=== PATIENT | male | born 1955 | race Caucasian/White ===

== ENCOUNTER 2019-11-16 17:22 | Outpatient (CLI) | payer MEDICARE, SELFPAY ==
--- NOTE | ~2019-11-16 | CT_ITS ---
EXAMINATION: CT abdomen pelvis wo con EXAM DATE: 11/16/2019 17:48 INDICATION: Right flank pain. TECHNIQUE: Spiral CT of the abdomen and pelvis was performed without contrast. Axial, coronal and sag ittal images were reviewed. The dose-length product (DLP) for this examination was 702.41 mGy-cm. T he exposure was tailored according to patient size (auto mA exposure control), and iterative reconstr uction (ASIR) was used as additional dose reduction technique. There is no prior study for compariso n. FINDINGS: There is a 3 mm right inferior calyceal stone, 2 mm left mid calyceal stone. No ureteral st ones or hydronephrosis. There is moderate prostatomegaly. The bladder is unremarkable. The liver, s pleen, adrenal glands and pancreas are unremarkable. The gallbladder is contracted but otherwise unr emarkable. There is no retroperitoneal or pelvic lymphadenopathy. There is mild scattered arterios clerotic disease. Small umbilical fat-containing hernia and small to moderate right inguinal fat-cont aining hernia. Small left inguinal fat-containing hernia. The appendix is not positively visualized. There is no pericecal inflammatory change to suggest appe ndicitis. The stomach and small bowel are unremarkable. There is expected amount of colonic stool. No free intraperitoneal gas. The heart is normal in size. There are no pericardial or pleural e ffusions. Small basilar postinfectious residua. There are no osteoblastic or osteolytic lesions radha ntified. IMPRESSION: 1. Small bilateral nephrolithiasis. No hydronephrosis or acute intra-abdominal findings. 2. Fat-containing hernias. 3. Moderate prostatomegaly. Reviewed, dictated and finalized at location A.
--- NOTE | ~2019-11-16 | XR_ITS ---
XR abdomen/kub 1V DATE: 11/16/2019 17:41 INDICATION: Right flank pain TECHNIQUE: AP projection, 2 views COMPARISON: 11/16/2019 CT abdomen pelvis FINDINGS: The psoas shadows are intact. No visceromegaly is evident. The bowel gas pattern is unremar kable, without evidence of obstruction. IMPRESSION: Nonspecific abdomen Reviewed, dictated and finalized at Location A. Reviewed, dictated and finalized at location B. IMPRESSION: Nonspecific abdomen
== END 2019-11-16 17:23 | disposition home or self-care (01) ==
PROVIDERS: PCP Family Medicine Adolescent Medicine; Visit Provider Urology
DX: K44.9 Diaphragmatic hernia without obstruction or gangrene (principal); N40.0 Benign prostatic hyperplasia without lower urinary tract symptoms; N20.0 Calculus of kidney
CPT/HCPCS: 74018; 74176

== ENCOUNTER 2020-08-06 01:53 | Outpatient (CLI) | payer MEDICARE, SELFPAY ==
[2020-08-06 18:32] LABS: SARS-CoV-2 RNA PCR Negative
== END 2020-08-06 01:54 | disposition home or self-care (01) ==
LOC: ANHCOVIDDT 01:53
PROVIDERS: PCP Family Medicine Adolescent Medicine; Visit Provider Internal Medicine Gastroenterology
DX: Z01.812 Encounter for preprocedural laboratory examination (principal); Z20.828 Contact with and (suspected) exposure to other viral communicable diseases
CPT/HCPCS: 87635; C9803; U0003

== ENCOUNTER 2020-08-10 02:15 | Day surgery (SDC) | payer MEDICARE, SELFPAY ==
[2020-08-01 11:44] VITALS: BMI 32.2
[2020-08-10 09:18] VITALS: BP 126/73; PULSE 66; RESP 18; TEMP 36.8; O2SAT 95; BMI 31.1
--- NOTE | 2020-08-10 09:18 | WPDGICN ---
Assessment and Plan Assessment and plan (1) Diarrhea: Code(s): R19.7 - Diarrhea, unspecified Status: Acute Assessment and Plan: Patient has ongoing diarrhea the etiology unclear. Cannot exclude infectious etiology. For this reason stool cultures have been obtained in initially are negative period is also possible diarrhea is related to antibiotic usage. It is possible the metformin use to treat his diabetes may contribute to his diarrhea. Diabetes itself may contribute to diarrhea. In view of negative cultures. Plan is for metformin to be held. Fiber supplements will be implemented. Imodium AD will be given for relief of symptoms. A colonoscopy will be performed to evaluate for organic disease. Further recommendations will Be given subsequently. (2) Diabetes mellitus: Code(s): E11.9 - Type 2 diabetes mellitus without complications Status: Acute GI Consult Note Consult date/time: 08/10/20 09:18 HPI: Yusuf Antunez is a 65 year old male Seen in evaluation at the request of Dr. Jacky Jones. Patient in complains of ongoing diarrhea. Patient states symptoms started June 06. Patient had previously been on antibiotics after neck surgery in November. Recent stool for C difficile toxin is negative. He was treated with antibiotics in May because of sinusitis. Patient describes 8-10 watery stools a day. He denies any bleeding. He denies any fever. Denies abdominal pain. Past medical history is significant for diabetes mellitus. Patient has a history of radiation therapy in the past. Had a brief interval of an ileus subsequent to that years ago. Family history is noncontributory. PMFSH Social History Social History Smoking status: Never smoker Alcohol intake: never Substance use type: does not use Living arrangements: with family Gender identity (if verbalized by the patient): Male Spiritual care concerns: No Meds Home Medications and Allergies Home Medications Medication Instructions Recorded Confirmed Type amoxicillin-pot clavulanate 1 tablet PO BID 08/01/20 08/01/20 History duloxetine 30 mg PO DAILY 08/01/20 08/01/20 History finasteride 5 mg PO DAILY 08/01/20 08/01/20 History gabapentin 300 mg PO QID 08/01/20 08/10/20 History metformin 500 mg PO BID 08/01/20 08/01/20 History Allergies Allergy/AdvReac Type Severity Reaction Status Date / Time Sulfa (Sulfonamide Allergy Itching Verified 08/10/20 09:15 Antibiotics) Exam Narrative: Exam Narrative: Physical exam reveals vital signs are stable. HEENT exam unremarkable. Lungs are clear to auscultation and percussion. Heart is without murmur or extra sounds. Abdominal exam bowel sounds are present soft nontender with no organomegaly. Digital external rectal exam normal.
[2020-08-10] MEDS: LACTATED RINGERS 1,000 ML 150 ML IV CONT (09:34)
--- NOTE | 2020-08-10 09:37 | WPDANESEPPF ---
Anes - Initial Pre Proc Eval Procedure: Operation Date: 08/10/20 10:30 Proposed Procedures p Colonoscopy - Isaías Baxter MD Date/Time: 08/10/20 09:37 Surgeon: Isaías Baxter MD Pre Op Diagnosis: DIARRHEA Patient Data Age: 65 Gender: M Height: 6 ft 4 in Weight: 115.9 kg Last Vital Signs Temp 98.3 F 08/10/20 09:18 Pulse 66 08/10/20 09:18 Resp 18 08/10/20 09:18 BP 126/73 08/10/20 09:18 Pulse Ox 95 08/10/20 09:18 Allergies Allergy/AdvReac Type Severity Reaction Status Date / Time Sulfa (Sulfonamide Allergy Itching Verified 08/10/20 09:15 Antibiotics) Home Medications Medication Instructions Recorded Confirmed Type amoxicillin-pot clavulanate 1 tablet PO BID 08/01/20 08/01/20 History duloxetine 30 mg PO DAILY 08/01/20 08/01/20 History finasteride 5 mg PO DAILY 08/01/20 08/01/20 History gabapentin 300 mg PO QID 08/01/20 08/10/20 History metformin 500 mg PO BID 08/01/20 08/01/20 History Patient hx anesthesia problems: none Family hx anesthesia problems: none [facility] Past Medical History Medical History (Updated 08/10/20 @ 09:36 by Jeffrey Burris MD) Diabetes mellitus ISMAEL (obstructive sleep apnea) Social History Social History Smoking status: Never smoker Alcohol intake: never Substance use type: does not use Living arrangements: with family Gender identity (if verbalized by the patient): Male Spiritual care concerns: No Anes - Eval Final PreProcedure Day of Procedure 08/10/20 09:37 Patient weight: overweight Heart: regular rate and rhythm Lungs: clear to auscultation Airway: Mallampati scale class II Neurological: alert and oriented Last oral intake: >/= 8 hours ASA classification: III Emergent: no Anesthetic plan: proceed Anesthesia type and monitoring: general GIVS and standard monitoring Informed Consent: The patient's anesthetic plan and its attendant risks and benefits were discussed with the patient/family/POA. Questions were solicited and answers provided to the satisfaction of the patient/family/POA.
[2020-08-10 09:38] LABS: Glucose Point of Care 124 (65-105)
[2020-08-10 10:10] VITALS: BP 108/58; PULSE 60; RESP 25; O2SAT 98
[2020-08-10 10:20] VITALS: BP 97/59; PULSE 64; RESP 24; O2SAT 97
[2020-08-10 10:30] VITALS: BP 104/69; PULSE 62; RESP 26; O2SAT 99
== END 2020-08-10 10:46 | disposition home or self-care (01) ==
PROVIDERS: PCP Family Medicine Adolescent Medicine; Visit Provider Internal Medicine Gastroenterology
PROC: 0DJD8ZZ Inspection of Lower Intestinal Tract, Via Natural or Artificial Opening Endoscopic (ICD-10-PCS; CPT 45378; principal; 2020-08-10 10:30)
DX: R19.7 Diarrhea, unspecified (principal); D12.2 Benign neoplasm of ascending colon; D12.3 Benign neoplasm of transverse colon; K63.5 Polyp of colon; K64.8 Other hemorrhoids; E11.9 Type 2 diabetes mellitus without complications; G47.33 Obstructive sleep apnea (adult) (pediatric)
CPT/HCPCS: 45385; 45380; 88305; J2704; J7120

== ENCOUNTER → 2022-05-25 05:20 | Outpatient (CLI) | payer MEDICARE, SELFPAY ==
[2022-05-25 11:43] LABS: SARS-CoV-2 RNA PCR Positive
== END ==
PROVIDERS: PCP Family Medicine Adolescent Medicine; Visit Provider Family Medicine Adolescent Medicine
DX: U07.1 COVID-19 (principal)
CPT/HCPCS: C9803; U0003; U0005

== ENCOUNTER 2022-11-01 12:30 | Outpatient (CLI) | payer MEDICARE, SELFPAY ==
--- NOTE | ~2022-11-01 | XR_ITS ---
EXAMINATION: XR hand BI arthritis min 3V DATE: 11/01/2022 13:34 INDICATION: Unspecified osteoarthritis, unspecified site. TECHNIQUE: 4 views of right hand and 4 views of left hand on a total of 7 radiographs were obtained. COMPARISON: None. FINDINGS: RIGHT HAND: Bone alignment is normal. No fracture. There is mild osteoarthritis of triscaphe joint an d moderate osteoarthritis of first carpometacarpal joint. There is mild osteoarthritis of most of the metacarpophalangeal joints and interphalangeal joints. There is an old healed avulsion fracture defo rmity of palmar base of fourth middle phalanx. LEFT HAND: Bone alignment is normal. No acute fracture. There is a 4 mm fragment of heterotopic ossif ication dorsal to the carpus on the lateral view. There is mild osteoarthritis of triscaphe joint and moderate osteoarthritis of first carpal metacarpal joint. There is mild osteoarthritis of most of th e metacarpophalangeal joints and interphalangeal joints. IMPRESSION: 1. Polyarticular osteoarthritis. Reviewed, dictated and finalized at location A. RIAL EMBALMER
--- NOTE | ~2022-11-01 | XR_ITS ---
Left foot Technique: AP and lateral standing views were obtained. Clinical History: Osteoarthritis Findings: No acute fracture or dislocation is seen. Osseous alignment is anatomic. Minimal degenerati ve spurring of the talonavicular and midfoot articulations. Small plantar calcaneal spur noted. Soft tissues are unremarkable. Impression: Minimal degenerative change, as above. Reviewed, dictated and finalized at location . ORMANCE TEST CONSULTANT Impression: Minimal degenerative change, as above.
--- NOTE | ~2022-11-01 | XR_ITS ---
Right foot Technique: AP and lateral standing views were obtained. Clinical History: Osteoarthritis Findings: No acute fracture or dislocation is seen. Osseous alignment is anatomic. Plantar calcaneal spur present. There is mild degenerative change of the talonavicular articulation. Mild degenerative spurring noted at the anterior margin of the distal tibial plafond. Soft tissues are unremarkable. Impression: Mild degenerative changes, as above. Reviewed, dictated and finalized at location M. OR BI DEVELOPER Impression: Mild degenerative changes, as above.
[2022-11-01 13:29] LABS: Basophils Percent Auto 0.4 % (0.2-1.2); Eosinophils Absolute Auto 0.2 K/mm3 (0-0.3); Eosinophils Percent Auto 2.3 % (0-4.4); Hematocrit 45.7 % (42.0-52.0); Immature Granulocyte Absolute 0.03 K/mm3 (0.00-0.031); Immature Granulocyte Percent A 0.4 % (0-0.5); Lymphocytes Absolute Auto 1.48 K/mm3 (0.9-3.2); Lymphocytes Percent Auto 18.6 % (18.3-44.2); Mean Corpuscular Hemoglobin 31.1 pg (26-34); Mean Corpuscular Volume 88.7 fl (80-100); Mean Platelet Volume 8.7 fl (7.4-10.4); Monocytes Absolute Auto 0.8 K/mm3 (0.1-0.6); Monocytes Percent Auto 9.4 % (2.6-8.5); Neutrophils Absolute Auto 5.5 K/mm3 (1.3-6.7); Neutrophils Percent Auto 68.9 % (45.5-73.1); Platelet Count Result 189 k/mm3 (150-375); Red Blood Count 5.15 M/mm3 (4.6-6.20); Red Cell Distribution Width 13.6 % (11.5-14.5)
[2022-11-01 13:47] LABS: Alanine Aminotransferase 31 U/L (6-50); Albumin Level 4.3 g/dL (3.5-5.1); Alkaline Phosphatase 59 U/L (38-126); Anion Gap 8 mmol/L (8-16); Aspartate Amino Transferase 25 U/L (17-59); Bilirubin,Total 0.8 mg/dL (0.2-1.3); Blood Urea Nitrogen 13 mg/dL (9-20); CRP 0.8 mg/dL (<1.0); Calcium 8.7 mg/dL (8.4-10.2); Carbon Dioxide 28 mmol/L (22-30); Chloride 100 mmol/L (98-107); Creatine Kinase 65 U/L (55-170); Estimated Glomerular Filt Rate > 60; Glucose 350 mg/dL (65-110); Lactate Dehydrogenase 155 U/L (120-246); Potassium 4.1 mmol/L (3.4-5.0); Sodium 136 mmol/L (137-145)
[2022-11-01 13:51] LABS: Complement C3 102 mg/dL (88-165); Rheumatoid Factor < 8.6 IU/ML (<12)
[2022-11-01 14:22] LABS: Creatinine Urine 64.6 mg/dL; Total Protein Urine Random 12 mg/dL; Ur Ttl Prot Creatinine Ratio 0.19 mg/mg (0-0.20)
[2022-11-01 14:40] LABS: Erythrocyte Sedimentation Rate 1 mm/hr (0-20)
[2022-11-05 23:33] LABS: SM Antibody <1.0; SM/RNP Antibody <1.0; SS-A <1.0; SS-B <1.0
[2022-11-06 11:48] LABS: Aldolase 4.4 U/L (<=8.1); Angiotensin Converting Enzyme 15.4 U/L (9-67)
[2022-11-06 12:47] LABS: Anti Cyclic Citrullinated Pept <16 Units (<20)
== END 2022-11-01 12:31 | disposition home or self-care (01) ==
PROVIDERS: PCP Family Medicine Adolescent Medicine; Visit Provider Internal Medicine
DX: R89.9 Unspecified abnormal finding in specimens from other organs, systems and tissues (principal); M19.042 Primary osteoarthritis, left hand; M19.041 Primary osteoarthritis, right hand
CPT/HCPCS: 36415; 73130; 73620; 80053; 82085; 82164; 82550; 82570; 83615; 84156; 85025; 85652; 86038; 86140; 86160; 86200; 86225; 86235; 86430

== ENCOUNTER 2022-11-14 23:16 | Emergency (ER) | payer MEDICARE, SELFPAY ==
--- NOTE | ~2022-11-14 | XR_ITS ---
Clinical Indication: Chest pressure PA and lateral views of the chest: Comparison: 02/04/2019 Findings: Calcified left basilar granuloma again noted. The lungs are otherwise clear, without eviden ce of focal consolidation or pleural effusion. Cardiomediastinal silhouette is within normal limits. Cervical spine fixation hardware is unchanged. Impression: No acute abnormality. Reviewed, dictated and finalized at [facility]. OSAL COORDINATOR Impression: No acute abnormality.
--- NOTE | ~2022-11-14 | CT_ITS ---
Clinical Indication: Chest pain, abdominal pain, vasculitis CT Scan of the Chest and Abdomen with Contrast: Technique: Contiguous sections were acquired throughout the chest, abdomen, and pelvis after intraven ous administration of 100 cc of Omnipaque 350. Dose reduction technique was used on this scan by uti lizing automated exposure control and iterative reconstruction technique. The dose-length product (DL P) was 1248.73 mGy-cm. COMPARISON: 11/16/2019 Findings: There is no evidence of any significant mediastinal, hilar or axillary lymphadenopathy. The mediastin al soft tissues appear normal. No aortic aneurysm or dissection. No central pulmonary embolus seen. There is no evidence of pleural or pericardial effusion. The lungs are clear, aside from minimal dependent atelectatic changes. Probable diffuse fatty infiltration of liver. The spleen, pancreas, gallbladder, adrenals and kidneys are within normal limits. No evidence of aortic aneurysm. No lymphadenopathy. There is minimal ath erosclerotic change of the abdominal aorta. Visualized bowel loops are unremarkable. No ascites. 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 Impression: Minimal atherosclerotic change of the abdominal aorta, otherwise no significant vascular abnormality seen. Diffuse fatty infiltration of the liver. Reviewed, dictated and finalized at location . ING INSPECTOR Impression: Minimal atherosclerotic change of the abdominal aorta, otherwise no significant vascular abnormality seen. Diffuse fatty infiltration of the liver.
--- NOTE | ~2022-11-14 | CT_ITS ---
CT ANGIOGRAM NECK AND HEAD History: Headache, history of AVM and aneurysm. Technique: Axial noncontrast imaging of the brain was performed. Serial spiral axial images through jose caal head and neck were then obtained during arterial phase IV injection of 100 cc of Omnipaque 350. 3- D postprocessing and MIP images were then reconstructed on the remote workstation. Dose reduction margarito hnique was used on this scan by utilizing automated exposure control and iterative reconstruction margarito hnique. The dose-length product (DLP) was 1853.30 mGy-cm. COMPARISON: 02/02/2019 CTA neck findings: Bilateral vertebral arteries are patent. Bile common carotid, internal carotid, a nd external carotid arteries are patent. The proximal right internal carotid artery demonstrates 0% s tenosis relative to the normal distal artery lumen diameter. The proximal left internal carotid arter y demonstrates 0% stenosis relative to the normal distal artery lumen diameter. No aneurysm seen in jose caal neck. CTA head findings: Distal vertebral arteries, basilar artery, and posterior cerebral arteries are pat ent. Distal internal carotid arteries, middle cerebral arteries, and anterior cerebral arteries are p atent. No stenosis or large vessel occlusion identified. There is a dilated vascular structure along the right side of the anterior falx cerebri, which is visible as a hyperdense structure on noncontras t head CT, and is stable since 02/02/2019. This structure measures approximately 2 cm in AP length, an d up to 5 mm in maximum diameter. Impression: Dilated vascular structure along the right side of the anterior falx cerebri, as detailed above. Prec ise etiology is unclear, but this appears to be stable since 02/02/2019. This could be related to hist ory of AVM, versus an atypical aneurysm of the right anterior cerebral artery. Consider conventional angiogram is indicated. Correlate with any relevant history. Reviewed, dictated and finalized at location M. CAL CODING INSTRUCTOR Impression: Dilated vascular structure along the right side of the anterior falx cerebri, a s detailed above. Precise etiology is unclear, but this appears to be stable si nce 02/02/2019. This could be related to history of AVM, versus an atypical aneu rysm of the right anterior cerebral artery. Consider conventional angiogram is indicated. Correlate with any relevant history.
[2022-11-14 23:16] VITALS: BP 127/70; PULSE 68; RESP 18; TEMP 36.6; O2SAT 96
--- NOTE | 2022-11-14 23:24 | ECG_ITS ---
Measurements Intervals [place] Rate: 70 P: 39 KS: 155 QRS: -51 QRSD: 114 T: 33 QT: 412 QTc: 447 Interpretive Statements SINUS RHYTHM LEFT ANTERIOR FASCICULAR BLOCK ABNORMAL ECG COMPARED TO ECG 02/02/2019 09:01:26 LEFT ANTERIOR FASCICULAR BLOCK NOW PRESENT Electronically Signed On 11-15-2022 6:40:02 SHANK TAPPER by Danny Koroma D.O.
[2022-11-14 23:31] VITALS: PULSE 68; RESP 19; O2SAT 95
[2022-11-14 23:34] LABS: Basophils Percent Auto 0.3 % (0.2-1.2); Eosinophils Absolute Auto 0.2 K/mm3 (0-0.3); Eosinophils Percent Auto 2.4 % (0-4.4); Hemoglobin 15.5 g/dL (14.0-18.0); Immature Granulocyte Absolute 0.02 K/mm3 (0.00-0.031); Immature Granulocyte Percent A 0.3 % (0-0.5); Lymphocytes Absolute Auto 1.77 K/mm3 (0.9-3.2); Lymphocytes Percent Auto 25.3 % (18.3-44.2); Mean Corpuscular HGB Conc 35.2 g/dl (32-36); Mean Corpuscular Hemoglobin 31.5 pg (26-34); Mean Corpuscular Volume 89.4 fl (80-100); Mean Platelet Volume 9.3 fl (7.4-10.4); Monocytes Absolute Auto 0.8 K/mm3 (0.1-0.6); Monocytes Percent Auto 11.3 % (2.6-8.5); Neutrophils Absolute Auto 4.2 K/mm3 (1.3-6.7); Neutrophils Percent Auto 60.4 % (45.5-73.1); Platelet Count Result 192 k/mm3 (150-375); Red Blood Count 4.92 M/mm3 (4.6-6.20); Red Cell Distribution Width 13.3 % (11.5-14.5)
[2022-11-14 23:45] VITALS: O2SAT 95
[2022-11-14 23:46] LABS: INR 1.1; Partial Thromboplastin Time 29.9 SECONDS (22.3-36.8); Prothrombin Time 13.7 Seconds (11.1-14.7)
--- NOTE | 2022-11-14 23:47 | ED.CHESTPAIN ---
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 Patient states that he woke up with some crushing substernal chest pain. He thought this was acid reflux, took 2 Tums without relief of his symptoms, states he called an ambulance when the pain started moving to his upper abdomen. He also notes a bitemporal pulsatile headache. He denies any shortness of breath, nausea or vomiting, diarrhea or constipation, fevers or chills. <MATI Calvin Last Filed: 11/15/22 04:29> Related Data Home Medications: Home Medications Medication Instructions Recorded Confirmed finasteride 5 mg tablet 5 mg PO DAILY 08/01/20 07/03/22 ascorbic acid (vitamin C) 1,000 mg 1 g PO DAILY 09/13/21 07/03/22 tablet cholecalciferol (vitamin D3) 25 25 mcg PO DAILY 09/13/21 07/03/22 mcg (1,000 unit) tablet multivitamin 1 tablet PO DAILY 09/13/21 07/03/22 tramadol 50 mg tablet 50 mg PO Q6H PRN 09/13/21 07/03/22 vitamin B complex (B 1 tablet PO DAILY 09/13/21 07/03/22 Complex-Vitamin B12 tablet) folic acid 1 mg tablet 1 mg PO DAILY 01/25/22 07/03/22 methotrexate sodium 2.5 mg tablet 12.5 mg PO WEEKLY 01/25/22 07/03/22 <MATI Calvin Last Filed: 11/15/22 04:29> Allergies/Adverse Reactions: Allergies Allergy/AdvReac Type Severity Reaction Status Date / Time Sulfa (Sulfonamide Allergy Itching Verified 11/14/22 23:27 Antibiotics) <Shira Howe PA-C - Last Filed: 11/15/22 04:29> Review of Systems Review of Systems: Gen: Denies fevers or chills Eyes: Denies eye pain or visual change ENT: Denies congestion Respiratory: Denies shortness of breath or cough CV: Reports chest pain GI: Denies abdominal pain nausea, emesis or diarrhea denies burning, urgency, frequency or hematuria Musculoskeletal: Denies back pain or muscle pain Neuro: Reports headache. Denies numbness, tingling, weakness or focal weakness Skin: Denies rash Except as documented, all other systems reviewed and negative <Shira Howe PA-C - Last Filed: 11/15/22 04:29> FORMERLY [facility], [facility] Past Medical History Medical History: Medical History Diabetes Inflammatory arthropathy ISMAEL (obstructive sleep apnea) <Shira Howe PA-C - Last Filed: 11/15/22 04:29> Surgical History Surgical History: Surgical History History of total right knee replacement Hx of cervical spine surgery <Shira Howe PA-C - Last Filed: 11/15/22 04:29> Family History Family History: Family History Father Cerebrovascular accident Mother Lung cancer Sibling Lung cancer Other Colon polyp <Shira Howe PA-C - Last Filed: 11/15/22 04:29> Social History Social History: Social History Smoking status: Never smoker Second hand tobacco smoke exposure: No Alcohol intake: never Substance use: never Substance use type: does not use Living arrangements: with family Occupation/Education: retired Gender identity (if verbalized by the patient): Male Sexual Orientation (if Verbalized by the Patient): Straight or Heterosexual Spiritual care concerns: No Agree to blood products: Yes <MATI Calvin Las
[2022-11-14 23:50] LABS: Alanine Aminotransferase 34 U/L (6-50); Alkaline Phosphatase 62 U/L (38-126); Anion Gap 5 mmol/L (8-16); Aspartate Amino Transferase 29 U/L (17-59); Bilirubin,Total 0.7 mg/dL (0.2-1.3); Blood Urea Nitrogen 15 mg/dL (9-20); Calcium 8.9 mg/dL (8.4-10.2); Carbon Dioxide 31 mmol/L (22-30); Chloride 99 mmol/L (98-107); Estimated CRCL calculation 105 ml/min; Estimated Glomerular Filt Rate > 60; Glucose 286 mg/dL (65-110); Lipase 38 U/L (23-300); Sodium 135 mmol/L (137-145)
[2022-11-15] VITALS (15 sets, daily range): BP systolic 109–137; BP diastolic 63–79; PULSE 54–80; RESP 11–22; O2SAT 93–99
[2022-11-15 00:01] LABS: Troponin I < 0.012 ng/mL (0.000-0.034)
[2022-11-15 01:04] LABS: Erythrocyte Sedimentation Rate 1 mm/hr (0-20)
[2022-11-15 03:02] LABS: Troponin I < 0.012 ng/mL (0.000-0.034)
== END 2022-11-15 04:07 | disposition home or self-care (01) ==
PROVIDERS: Emergency Medicine; Emergency Provider Physician Assistant; PCP Family Medicine Adolescent Medicine
DX: R07.9 Chest pain, unspecified (principal); R51.9 Headache, unspecified; K21.9 Gastro-esophageal reflux disease without esophagitis; E11.9 Type 2 diabetes mellitus without complications
CPT/HCPCS: 36415; 70496; 70498; 71046; 71275; 74175; 80053; 83690; 84484; 85025; 85610; 85652; 85730; 93005; 96365; 99284; J0131; Q9967

== ENCOUNTER 2023-12-12 00:04 | Day surgery (SDC) | payer MEDICARE, SELFPAY ==
--- NOTE | 2023-12-11 09:55 | PC.NURSE ---
Report to the Outpatient Waiting Room, entrance under the green pavilion located off [facility], at time _0930 on date __12/12/23 . Planned Procedure Time: ___1130 . Time changes happen often and if your time is changed the preop area will call you the afternoon before. - You and your visitor will be asked to self-screen and do not enter if you have any COVID symptoms. - A mask is optional within the hospital at this time. Patients may have clear liquids (water, carbonated beverages, clear teas, apple juice) until 3 hours prior to surgery( 0830) with a maximum of 20 ounces. - No food from midnight until time of surgery - Infants may have breast milk until 4 hours before surgery, formula 6 hours prior to surgery. - Children will be allowed to drink immediately following surgery. If applicable, please bring a bottle or sippy cup to assist with drinking. Juice, water, soda, and popsicles are readily available. For infants on formula, please bring formula the day of surgery. Pacifiers are allowed. Take the following medications with a SIP of water the morning of surgery: __GABAPENTIN, DO NOT STOP ANY OF YOUR OTHER PRESCRIPTION MEDICATIONS PRIOR TO SURGERY ?EXCEPT THE FOLLOWING Medications to discontinue per physician Date to take last dose Please no make-up, nail burmese, hairspray, perfume, deodorant, or body powder the day of surgery. No jewelry (including any body piercings) or valuables the day of surgery, leave them at home. Please take a shower or bath the night before, or the morning of, surgery with an antibacterial soap. Wear comfortable, loose fitting clothing. Children are encouraged to wear pajamas. - Jewelry must be removed prior to entering the operating room. Rings and piercings that are not removed may be cut off. - The hospital will not accept responsibility for valuables. - Please leave all valuables, including medications, at home the day of surgery. If you are going home after surgery, a licensed lease purchase truck driver must drive you home. - NO public transportation without another adult if you receive anesthesia. - We recommend that an adult stay with you for 24 hours following discharge. - We also recommend that you do not drive, make important decision, drink alcoholic beverages, or take any drugs that were not prescribed by your health care provider for at least 24 hours after your discharge time. Follow any additional instructions given to you from your surgeon. If you or anyone in your household have experienced Covid symptoms in the past week, please notify your surgeon or the nurse liaison at the phone number below for possible testing. Telephone instructions given to ___PT and asked if any additional questions and then verbalized understanding. Patient advised to call surgeon office or pre surgery nurse liaison [phone] if any additional questions.
[2023-12-11 10:00] VITALS: BMI 37.3
[2023-12-12] VITALS (10 sets, daily range): BP systolic 112–147; BP diastolic 62–83; PULSE 51–77; RESP 14–18; TEMP 36.6–37.1; O2SAT 94–100
--- NOTE | 2023-12-12 06:29 | WPDHPUPDATE1 ---
History and Physical Update Update Date/Time: 12/12/23 06:29 History and Physical has been reviewed, including an updated exam of the patient. There are NO changes in the patient's condition. Risks, benefits, and alternatives have been discussed and questions answered. Patient agrees to proceed with procedure.
--- NOTE | 2023-12-12 09:11 | ECG_ITS ---
Measurements Intervals [place] Rate: 50 P: 32 GA: 190 QRS: -37 QRSD: 115 T: 19 QT: 470 QTc: 429 Interpretive Statements SINUS BRADYCARDIA MARKED LEFT AXIS DEVIATION [QRS AXIS < -30] COMPARED TO ECG 11/14/2022 23:25:56 SINUS BRADYCARDIA NOW PRESENT Electronically Signed On 12-12-2023 11:05:44 CDT by Luli Blackman M.D.
[2023-12-12] MEDS: LACTATED RINGERS 1,000 ML 30 ML IV CONT ×2 (10:00→12:50)
[2023-12-12 10:17] LABS: Glucose Point of Care 141 mg/dl (65-105)
--- NOTE | 2023-12-12 10:19 | WPDANESEPPF ---
Anes - Initial Pre Proc Eval Procedure: Operation Date: 12/12/23 11:30 Proposed Procedures p Trans Urethral Resection Bladder Tumor with Gemcitabine Instillation - José Antonio Skinner MD Date/Time: 12/12/23 10:19 Surgeon: José Antonio Skinner MD Pre Op Diagnosis: Bladder Ca Patient Data Age: 68 Gender: M Height: 1.83 m Weight: 124.75 kg Allergies Allergy/AdvReac Type Severity Reaction Status Date / Time Sulfa (Sulfonamide Allergy Itching Verified 12/12/23 10:25 Antibiotics) Home Medications Medication Instructions Recorded Confirmed Type finasteride 5 mg tablet 5 mg PO DAILY 08/01/20 12/12/23 History ascorbic acid (vitamin C) 1,000 mg 1 g PO DAILY 09/13/21 12/12/23 History tablet cholecalciferol (vitamin D3) 25 25 mcg PO DAILY 09/13/21 12/12/23 History mcg (1,000 unit) tablet tramadol 50 mg tablet 50 mg PO Q6H PRN Pain 09/13/21 12/12/23 History folic acid 1 mg tablet 1 mg PO DAILY 01/25/22 12/12/23 History methotrexate sodium 2.5 mg tablet 12.5 mg PO WEEKLY 01/25/22 12/12/23 History oxybutynin chloride 5 mg tablet 5 mg PO QPM 11/30/22 12/12/23 History blood sugar diagnostic (Accu-Chek #100 ea 03/25/23 12/12/23 Rx Esperanza Plus test strips) lancets #100 ea 03/25/23 12/12/23 Rx duloxetine 30 mg capsule,delayed 60 mg PO HS PAIN 10/23/23 12/12/23 History release blood-glucose meter,continuous #1 ea 12/02/23 12/12/23 Rx ([employer]) pen needle, diabetic 32 gauge x #100 ea 12/07/23 12/12/23 Rx /32 (TRUEplus Pen Needle) blood-glucose sensor (Dexcom G7 #3 ea 12/09/23 12/12/23 Rx Sensor device) cyanocobalamin (vitamin B-12) 1,000 mcg PO DAILY 12/11/23 12/12/23 History 1,000 mcg capsule docusate sodium 100 mg capsule 100 mg PO HS 12/11/23 12/12/23 History (Stool Softener) famotidine 20 mg tablet 20 mg PO DAILY 12/11/23 12/12/23 History gabapentin 300 mg capsule 600 mg PO TID 12/11/23 12/12/23 History insulin glargine 100 unit/mL (3 20 unit subcut HS 12/11/23 12/12/23 History mL) subcutaneous pen (Lantus Solostar U-100 Insulin) insulin lispro 100 unit/mL 10 unit subcut TID 12/11/23 12/12/23 History subcutaneous pen (Humalog KwikPen (U-100) Insulin) Laboratory Tests 12/12/23 10:12 POC Capillary Glucose 141 H mg/dl (65-105) Patient hx anesthesia problems: none Family hx anesthesia problems: none Results Review: All pre-operative results and documents have been reviewed as part of the pre-operative evaluation. [facility] Past Medical History Medical History (Updated 11/28/23 @ 16:15 by Jacky Jenkins MD) Inflammatory arthropathy ISMAEL (obstructive sleep apnea) Surgical History Surgical History History of total right knee replacement Hx of cervical spine surgery Family History Family History Father Cerebrovascular accident Mother Lung cancer Sibling Lung cancer Other Colon polyp Social History Social History (Updated 03/14/23 @ 15:00 by King Rothman MA) Smoking status: Never smoker Second hand tobacco smoke exposure: No Alcohol intake: never Substance use: never Substance use type: does not use Lack of Transportation: No Lack of Food: Never True Current Housing: I Have Housing Concerned About Future Housing: No Difficulty Paying Gas/Electric Bills: No Difficulty Paying for Meds: No Currently Unemployed: No Education: High School Diploma/GED Difficulty w/ Childcare or Family Care: No Living arrangements: with family Occupation/Education: retired Gender identity (if verbalized by the patient): Male Sexual Orientation (if Verbalized by the Patient): Straight or Heterosexual Spiritual care concerns: No Agree to blood products: Yes Anes - Eval Final PreProcedure Day of Procedure 12/12/23 10:19 Patient weight: obese Heart: regular rate and rhythm and mu
[2023-12-12] MEDS: MIDAZOLAM HCL (*CRX) 2 MG/2 ML VIAL IV PUSH (11:25)
[2023-12-12] MEDS: ceFAZolin 3 GM/D5W 100 ML 100 ML IVPB (11:29)
--- NOTE | 2023-12-12 12:03 | W.PM.PROC2 ---
Procedure Note - Detailed Date of Procedure 12/12/23 Pre-op Diagnosis Bladder Ca Post-op Diagnosis Same Procedure Performed TURBT (medium, 3 cm) Surgeon José Antonio Skinner MD Anesthesia General Description of Procedure Patient is brought to the op suite where he is prepped draped in routine sterile fashion while in dorsal lithotomy position after the uneventful induction of a general LMA anesthetic. Cystoscopy was undertaken with a 24 F resectoscope sheath. There was no urethral stricture but generous lateral lobe enlargement of the prostate with approximately 3 cm prostatic urethra bladder shows the area papillary neoplastic growth in the left posterior lateral bladder wall below the trigone, just inside the bladder neck. The remainder of the bladder mucosa is perfectly normal without suggestion of additional neoplastic sites. This area was resected in its entirety with and attempt made to include detrusor muscle for pathological evaluation of invasion. This did require resection of the left ureteral orifice but I was able to avoid cautery in that area. The remainder of the base and periphery were cauterized with a loop and rollerball electrode. Resectoscope was removed and a 20 F urethral catheter was placed to drainage. Drains Yes Packing No Pathology Yes Complications No immediate complications Condition Stable
--- NOTE | 2023-12-12 12:06 | W.PM.PROC2 ---
Procedure Note - Detailed Date of Procedure 12/12/23 Pre-op Diagnosis Bladder Ca Post-op Diagnosis Same Procedure Performed [facility] installation Surgeon José Antonio Skinner MD Anesthesia General and None Description of Procedure With the patient in the supine position, a 16F Ritchie catheter is placed using sterile technique. Using a protective facemask, gown and double layer of gloves Gemcitabine 2gm in 100cc saline is administered through the catheter/into the bladder. The catheter is then plugged. Patient was instructed to lie supine x20min, then to roll both the left and right x20 min. each. Total dwell time will be 60 min., after which the bladder will be drained and catheter removed. Drains No Packing No Pathology None sent Complications No immediate complications
[2023-12-12 12:14] LABS: Glucose Point of Care 158 mg/dl (65-105)
[2023-12-12] MEDS: SODIUM CHLORIDE 0.9% IV 23.7 ML, GEMCITABINE HCL 1,000 MG BLADDER ×2 (12:16→12:17)
[2023-12-12] MEDS: fentaNYL CITRATE INJ (*CRX) 100 MCG/2 ML VIAL 25 MCG IV PUSH ×8 (12:21→12:44)
[2023-12-12] MEDS: HYDROmorphone HCL INJ (*CRX) 1 MG/ML SYR 0.25 MG IV PUSH ×8 (12:47→13:22)
[2023-12-12] MEDS: KETOROLAC 30 MG/ML VIAL (*BKC) IV PUSH (12:58)
[2023-12-12] MEDS: HYOSCYAMINE SULFATE 0.125 MG TABLET PO (12:59)
== END 2023-12-12 14:27 | disposition home or self-care (01) ==
PROVIDERS: PCP Family Medicine Adolescent Medicine; Visit Provider Urology
PROC: 0TBB8ZZ Excision of Bladder, Via Natural or Artificial Opening Endoscopic (ICD-10-PCS; CPT 52235; principal; 2023-12-12 11:30)
DX: C67.8 Malignant neoplasm of overlapping sites of bladder (principal); M12.80 Other specific arthropathies, not elsewhere classified, unspecified site; G47.33 Obstructive sleep apnea (adult) (pediatric); Z79.4 Long term (current) use of insulin; E66.9 Obesity, unspecified; Z68.38 Body mass index [BMI] 38.0-38.9, adult
CPT/HCPCS: 52235; 51720; 82948; 88305; 93005; A9270; J0360; J0690; J1170; J1885; J2250; J2405; J2704; J3010; J7120; J9201

== ENCOUNTER 2024-06-26 12:19 | Outpatient (CLI) | payer MEDICARE, SELFPAY ==
--- NOTE | ~2024-06-26 | XR_ITS ---
XR abdomen/kub 1V 06/26/2024 12:37 INDICATION: Flank pain TECHNIQUE: KUB COMPARISON: Comparison to multiple prior studies sequentially, with oldest reviewed study dated 08/10. FINDINGS: Bowel gas pattern is normal. Moderate colonic fecal loading. There is no evidence of free a ir, mass, organomegaly, ascites or obstruction. No abnormal calculi are seen. The bones appear inta ct. IMPRESSION: 1: No acute abdominal abnormality identified. Reviewed, dictated and finalized at location B.
== END 2024-06-26 12:20 | disposition home or self-care (01) ==
PROVIDERS: PCP Family Medicine Adolescent Medicine; Visit Provider Urology
DX: R10.9 Unspecified abdominal pain (principal)
CPT/HCPCS: 74018

== ENCOUNTER 2024-07-10 13:41 | Outpatient (CLI) | payer MEDICARE, SELFPAY ==
--- NOTE | ~2024-07-10 | CT_ITS ---
EXAMINATION: CT abdomen pelvis wo con DATE: 07/10/2024 14:10 INDICATION: Right lower posterior rib pain, lower abdominal pain. TECHNIQUE: Computed tomography (CT) of the abdomen and pelvis was performed without intravenous contr ast. Automated exposure control and iterative reconstruction technique were employed. Exam dose: 150 2.69 mGy-cm total exam DLP. COMPARISON: 06/26/2024 KUB 11/15/2022 CTA chest abdomen. FINDINGS: Multifocal linear discoid atelectasis or scarring at the lung bases. Normal heart size. No pericardial or pleural effusion. The liver, spleen, pancreas and adrenal glands are unremarkable. The gallbladder is contracted. No pericholecystic fluid or fat stranding. No bile duct or pancreatic duct dilatation. Pinpoint nonobstructing lower pole right renal calculus. Pinpoint lower pole left renal calculus. Sma ll right renal cyst. No new or enlarging renal mass lesion is noted since 11/15/2022 examination. There is prominent prostate enlargement, impressing the base the urinary bladder, and multiple prosta te calcifications. Mild diffuse thickening of the urinary bladder wall. There is a prominent amount of fecal material throughout the colon. No bowel obstruction, bowel wall thickening, pneumatosis or intraperitoneal free air is detected. There is atherosclerotic calcification but normal caliber of the abdominal aorta, iliac and femoral a rteries. No intraperitoneal or retroperitoneal or pelvic mass lesion or adenopathy or ascites. Bilateral fat-containing inguinal hernias. No rib fracture or bone destruction is noted. Diffuse idiopathic skeletal hyperostosis of the thoracic spine. Prominent degenerative change at the apophyseal joints of the lumbar spine with associated grade 1 an terolisthesis at L4-5. Bilateral hip osteoarthritis. No suspicious osteolytic or osteoblastic lesions are noted. IMPRESSION: No rib fracture or bone destruction is noted to account for the complaint of lower poste rior right rib fracture Pinpoint nonobstructing lower pole left renal calculus Prostate enlargement and calcifications Reviewed, dictated and finalized at Location A. Reviewed, dictated and finalized at location A. IMPRESSION: No rib fracture or bone destruction is noted to account for the co mplaint of lower posterior right rib fracture Pinpoint nonobstructing lower pole left renal calculus Prostate enlargement and calcifications
== END 2024-07-10 13:42 | disposition home or self-care (01) ==
PROVIDERS: PCP Family Medicine Adolescent Medicine; Visit Provider Family Medicine Adolescent Medicine
DX: R07.81 Pleurodynia (principal); R10.30 Lower abdominal pain, unspecified; N20.0 Calculus of kidney; N40.0 Benign prostatic hyperplasia without lower urinary tract symptoms
CPT/HCPCS: 74176

== ENCOUNTER 2025-04-02 07:39 | Outpatient (CLI) | payer MEDICARE, SELFPAY ==
--- NOTE | ~2025-04-02 | CT_ITS ---
Non-contrast CT scan of the Abdomen and Pelvis Clinical indication: Left testicular pain Technique: 2.5 mm axial scans were obtained through the abdomen and pelvis without intravenous or or al contrast. Dose reduction technique was used on this scan by utilizing automated exposure control a nd iterative reconstruction technique. The dose-length product (DLP) was 1556.58 mGy-cm. COMPARISON: 07/10/2024 Findings: Images through the lung bases reveal bibasilar scarring/atelectasis. 3 mm nonobstructing right renal stone present. Punctate nonobstructing left renal stone present. No u reteral stone or hydronephrosis on either side. The liver, spleen, pancreas, gallbladder, and adrenals appear normal. There are atherosclerotic calci fications of the aorta. . There is no evidence of bowel obstruction. Images through the pelvis were performed. There is no evidence of ascites or lymphadenopathy. Urinary bladder unremarkable. Prostate gland is enlarged. Fat-containing right inguinal hernia present. Impression: Small bilateral nonobstructing renal stones, as detailed above. Enlarged prostate gland. Fat-containing right inguinal hernia. Reviewed, dictated and finalized at location . Impression: Small bilateral nonobstructing renal stones, as detailed above. Enlarged prostate gland. Fat-containing right inguinal hernia.
--- OUTSIDE RECORDS SUMMARY | 2025-04-02 07:45 | XMS_ITS | Encounter Summary ---
Author Organization [facility] Address [address] [place] [address] Care Team Providers Care Stacker And Sorter Operator Name Role Phone Jacky Jenkins MD Primary Care Prov ider Julia Orellana PT Unavailable [phone] Garth Fraga MD Unavailable [phone] Maryann Herndon MD Unavailable Brien Fine MD Unavailable Vilma Yang RN Unavailable Rina Swenson OD Unavailable [phone] José Antonio Skinner MD Unavailable [phone] Shereen Najera MD Unavailable [phone] Alanis Ospina OD Unavailable [phone] Reason for Visit * Reason Onset Date Comments Pre-Procedure Instructions 06/17/2024 Encounter Details Date Type Department Care Team (Late st Contact Info) Description 06/17/2024 Telephone [facility] [place] [facility] [address] [facility] [address] [place], [place] [id number] Edouard Hahn MD [address] [facility] [address] [place] [address] Pre-Procedure Instructions Social History Tobacco Use Types Packs/Day Years Used Date Smoking Tobacco: Never Passive Smoke Exposure: Past Smokeless Tobacco: Never Alcohol Use Standard Drinks/Week Comments No 0 (1 standard drink = 0.6 oz pur e alcohol) AUDIT-C Answer Date Recorded Q1: How often do you have a drink containing alcohol? Never 06/19/2024 Q2: How many drinks containi ng alcohol do you have on a typical day when you are drinking? Patient does not drink Q3: How often do you have si x or more drinks on one occasion? Never 06/19/2024 Personal Safety Answer Date Recorded Have you ever been in or are you currently in a harmful physical or emotional relationship or is someone making you feel afraid or unsafe? 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 Never 06/19/2024 8:10 AM GERMAINET Anastasia Cedeño RN Q2: How many drinks containing alcohol do you have on a typical day when you are drinking? Patient does not drink 06/19/2024 8:10 AM Anastasia Mehta RN Q3: How often do you have six or more drinks on one occasion? Never 06/19/2024 8:10 AM Anastasia Mehta RN documented as of this encounter Plan of Treatment Not on file documented as of this encounter Goals Goal Patient Goal Type Associated Problems Recent Progress Patient-Stated? Author CCM Chronic Pain Care Plan Chronic Care Management No change(04/01 8:37 AM CDT) Julia Henley RN Note: Problem: Chronic Pain Goals: 1. Minimize further functional decline 2. Maximize quality of life 3. Control pain Strategies: - Activity/exercise program recommendation - Conservative stepwise pain medicine strategy with multi-disciplinary approach - Recommend healthy lifestyle strategies and compensatory methods as needed Reduce the likelihood of falling Lifestyle Josee Larkin, BOB Note: Below are four things you can do to prevent falls: 1. Begin an exercise program to improve your leg strength & balance 2. Ask your doctor or pharmacist to review your medicines 3. Get annual eye check-ups & update your eyeglasses 4. Make your home safer by: Removing clutter & tripping hazards Putting railings on all stairs & adding grab bars in the bathroom Having good lighting, especially on stairs Contact your local community or [facility] for information on exercise, fall prevention programs, or options for improving home safety. documented as of this encounter Visit Diagnoses Not on filedocumented in this encounter Care Teams Stacker And Sorter Operator Relationship Specialty Start Date End Date Jacky Jenkins MD [address] [place] [address] PCP - General 01/01/13 Julia Orellana, PT [address] [place] [address] Physical Therapist Physical Therapy 10/16/20 Garth Fraga MD [address] [facility] [place] [address] Hold Worker Dermatology 09/15/21 Maryann Herndon MD [address] [place] [address] Consulting Physician Neurology 04/04/22 Brien Fine MD [address] [place] [address] Brand Advocate Transplant 04/23/23 Vilma Yang RN [address] [facility] [address] [place] [address] Heart Failure Coordinator Retail Event Coordinator 04/23/23 Rina Swenson, OD [address] [place] [address] Optometry 04/29/23 José Antonio Skinner MD [address] [facility] [address] [place] [address] Consulting Physician Urology 12/11/23 Shereen Najera MD [address] DEPT OPHTHALMOLOGY, [facility] [address] [place] [address] Ophthalmology 03/03/25 Alanis Ospina, OD [address] [facility] DEPT OPHTHALMOLOGY, [address] [place] [address] Optometry 03/03/25 documented as of this encounter
--- OUTSIDE RECORDS SUMMARY | 2025-04-02 07:45 | XMS_ITS | Encounter Summary ---
Author Organization [facility] Address [address] [place] [address] Care Team Providers Care Real Estate Instructor Name Role Phone Jacky Jenkins MD Primary Care Prov ider Julia Orellana PT Unavailable [phone] Garth Fraga MD Unavailable [phone] Maryann Herndon MD Unavailable Brien Fine MD Unavailable [phone] Vilma Yang RN Unavailable Rina Swenson OD Unavailable [phone] José Antonio Skinner MD Unavailable [phone] Shereen Najera MD Unavailable [phone] Alanis Ospina OD Unavailable Reason for Visit * Reason Onset Date Comments PMC Preprocedure 01/20/2025 Encounter Details Date Type Department Care Team (Late st Contact Info) Description 01/20/2025 Telephone [facility] at the [place] [facility] [address] [facility] Advanced Medicine [address] [place], [place] [id number] Elisha Umaña MD PhD [address] [facility] [address] [place], [place] [id number] PMC Preprocedure Social History Tobacco Use Types Packs/Day Years Used Date Smoking Tobacco: Never Passive Smoke Exposure: Past Smokeless Tobacco: Never Alcohol Use Standard Drinks/Week Comments No 0 (1 standard drink = 0.6 oz pur e alcohol) AUDIT-C Answer Date Recorded Q1: How often do you have a drink containing alcohol? Never 12/02/2024 Q2: How many drinks containi ng alcohol do you have on a typical day when you are drinking? Patient does not drink Q3: How often do you have si x or more drinks on one occasion? Never 12/02/2024 Personal Safety Answer Date Recorded Have you ever been in or are you currently in a harmful physical or emotional relationship or is someone making you feel afraid or unsafe? 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 Author CCM Chronic Pain Care Plan Chronic Care Management No change(04/01 8:37 AM CDT) No Julia Joseph, BOB Note: Problem: Chronic Pain Goals: 1. Minimize [...] on stairs Contact your local community or central hospital for information on exercise, fall prevention programs, or options for improving home safety. documented as of this encounter Visit Diagnoses Not on filedocumented in this encounter Care Teams Real Estate Instructor Relationship Specialty Start Date End Date Jacky Jenkins MD [address] [place] [address] PCP - General 01/01/13 Julia Orellana, PT [address] [facility] [address] [place] [address] Physical Therapist Physical Therapy 10/16/20 Garth Fraga MD [address] [facility] [place] [address] Desk Assistant Dermatology 09/15/21 Maryann Herndon MD [address] [place] [address] Consulting Physician Neurology 04/04/22 Brien Fine MD [address] [place] [address] Sheet Rock Taper Helper Transplant 04/23/23 Vilma Yang, BOB [address] [facility] [address] [place] [address] Heart Failure Coordinator Electrical Systems Design Engineer 04/23/23 Rina Swenson OD [address] [place] [address] Optometry 04/29/23 José Antonio Skinner MD [address] [place] [address] Consulting Physician Urology 12/11/23 Shereen Najrea MD [address] DEPT OPHTHALMOLOGY, [address] [place] [address] Ophthalmology 03/03/25 Alanis Ospina, OD [address] [facility] DEPT OPHTHALMOLOGY, [address] [place] [address] Optometry 03/03/25 documented as of this encounter
--- OUTSIDE RECORDS SUMMARY | 2025-04-02 07:45 | XMS_ITS | Encounter Summary ---
Author Organization [facility] Address [address] [place] [address] Care Team Providers Care Acid Washer Operator Name Role Phone Jacky Jenkins MD Primary Care Prov ider Julia Orellana PT Unavailable [phone] Garth Fraga MD Unavailable [phone] Maryann Herndon MD Unavailable Brien Fine MD Unavailable [phone] Vilma Yang RN Unavailable Rina Swenson OD Unavailable [phone] José Antonio Skinner MD Unavailable [phone] Shereen Najera MD Unavailable [phone] Alanis Ospina OD Unavailable Reason for Visit * Reason Onset Date Comments PMC Preprocedure 07/28/2024 Encounter Details Date Type Department Care Team (Late st Contact Info) Description 07/28/2024 Telephone [facility] Center at the [place] for [facility] [address] [facility] [address] Medicine [address] [place], [place] [id number] Elisha Umaña MD PhD [address] [facility] [phone] [place], [place] [id number] PMC Preprocedure Social History Tobacco Use Types Packs/Day Years Used Date Smoking Tobacco: Never Passive Smoke Exposure: Past Smokeless Tobacco: Never Alcohol Use Standard Drinks/Week Comments No 0 (1 standard drink = 0.6 oz pur e alcohol) AUDIT-C Answer Date Recorded Q1: How often do you have a drink containing alcohol? Never 07/31/2024 Q2: How many drinks containi ng alcohol do you have on a typical day when you are drinking? Patient does not drink Q3: How often do you have si x or more drinks on one occasion? Never 07/31/2024 Personal Safety Answer Date Recorded Have you ever been in or are you currently in a harmful physical or emotional relationship or is someone making you feel afraid or unsafe? 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 Never 07/31/2024 10:04 AM Emperatriz Syed RN Q2: How many drinks containing alcohol do you have on a typical day when you are drinking? Patient does not drink 07/31/2024 10:04 AM Emperatriz Syed RN Q3: How often do you have six or more drinks on one occasion? Never 07/31/2024 10:04 AM Emperatriz Syed RN documented as of this encounter Plan of Treatment Not on file documented as of this encounter Goals Goal Patient Goal Type Associated Problems Recent Progress Patient-Stated? Author [facility] Chronic Pain Care Plan Chronic Care Management No change(04/01 8:37 AM CDT) Julia Henley RN Note: Problem: Chronic Pain Goals: 1. Minimize further functional decline 2. Maximize quality of life 3. Control pain Strategies: - Activity/exercise program recommendation - Conservative stepwise pain medicine strategy with multi-disciplinary approach - Recommend healthy lifestyle strategies and compensatory methods as needed Reduce the likelihood of falling Lifestyle No Josee Alan, BOB Note: Below are four things you [...] on stairs Contact your local community or [facility] for information on exercise, fall prevention programs, or options for improving home safety. documented as of this encounter Visit Diagnoses Not on filedocumented in this encounter Care Teams Acid Washer Operator Relationship Specialty Start Date End Date Jacky Jenkins MD [address] [place] [address] PCP - General 01/01/13 Julia Orellana, PT [address] [facility] [address] [place] [address] Physical Therapist Physical Therapy 10/16/20 Garth Fraga MD [address] [place] [address] Publishing Specialist Dermatology 09/15/21 Maryann Herndon MD [address] [place] [address] Consulting Physician Neurology 04/04/22 Brien Fine MD [address] [place] [address] Sports Development Officer Transplant 04/23/23 Vilma Yang RN [address] [facility] [address] [place] [address] Heart Failure Coordinator Barbering Instructor 04/23/23 Rina Swenson OD [address] [place] [address] Optometry 04/29/23 José Antonio Skinner MD [address] [facility] [address] [place], [place] [id number] Consulting Physician Urology 12/11/23 Shereen Najera MD [address] DEPT OPHTHALMOLOGY, [facility] [address] [place] [address] Ophthalmology 03/03/25 Alanis Ospina OD [address] [facility] DEPT OPHTHALMOLOGY, [address] [place] [address] Optometry 03/03/25 documented as of this encounter
--- OUTSIDE RECORDS SUMMARY | 2025-04-02 07:45 | XMS_ITS | Encounter Summary ---
Author Organization Formerly [facility] Address [address] [place] [address] Care Team Providers Care Program Coordinator Executive Education Name Role Phone Jacky Jenkins MD Primary Care Prov ider Julia Orellana PT Unavailable [phone] Garth Fraga MD Unavailable [phone] Maryann Herndon MD Unavailable Brien Fine MD Unavailable [phone] Vilma Yang RN Unavailable [phone] Rina Swenson OD Unavailable [phone] José Antonio Skinner MD Unavailable [phone] Shereen Najera MD Unavailable [phone] Alanis Ospina OD Unavailable [phone] Reason for Visit * Reason Onset Date Comments question 12/18/2024 Encounter Details Date Type Department Care Team (Late st Contact Info) Description 12/18/2024 Telephone [facility] [address] 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 [...] on stairs Contact your local community or senior center for information on exercise, fall prevention programs, or options for improving home safety. documented as of this encounter Visit Diagnoses Not on filedocumented in this encounter Care Teams Program Coordinator Executive Education Relationship Specialty Start Date End Date Jacky Jenkins MD [address] [place] [address] PCP - General 01/01/13 Julia Orellana, PT [address] [facility] [address] [place] [address] Physical Therapist Physical Therapy 10/16/20 Garth Fraga MD [address] [facility] [place] [address] Tool And Die Designer Dermatology 09/15/21 Maryann Herndon MD [address] [place] [address] Consulting Physician Neurology 04/04/22 Brien Fine MD [address] [place] [address] Superintendent Of Generation Transplant 04/23/23 Vilma Yang, BOB [address] [facility] [address] [place] [address] Heart Failure Coordinator Auto Repair Shop Manager 04/23/23 Rina Swenson OD [address] [place] [address] Optometry 04/29/23 José Antonio Skinner MD [address] [facility] [address] [place] [address] Consulting Physician Urology 12/11/23 Shereen Najera MD [address] DEPT OPHTHALMOLOGY, [address] [address] Ophthalmology 03/03/25 Alanis Ospina, TAB [address] [facility] DEPT OPHTHALMOLOGY, [address] [place] [id number] Optometry 03/03/25 documented as of this encounter
--- OUTSIDE RECORDS SUMMARY | 2025-04-02 07:46 | XMS_ITS ---
Author Organization [facility] Address [address] [place] [address] Care Team Providers Care Safemaker Name Role Phone Jacky Jenkins MD Primary Care Prov ider Julia Orellana PT Unavailable Garth Fraga MD Unavailable Maryann Herndon MD Unavailable Brien Fine MD Unavailable Vilma Yang RN Unavailable [phone] Rina Swenson OD Unavailable [phone] José Antonio Skinner MD Unavailable [phone] Shereen Najera MD Unavailable [phone] Alanis Ospina OD Unavailable Active Problems Problem Noted Date Diagnosed Date PVD (posterior vitreous detachment), right eye 0 01/27/2025 Assessment & Plan (03/10/2025 12:14 PM CDT): +stable PVD OD, no Jose's -inferior hemorrhage resolved OD -s/s RD/RT discussed with pt today; RTC ILAN if any symptoms arise -follow annually Assessment & Plan (01/27/2025 11:09 AM CDT): +floaters, flashes of light OD x yesterday; flashes have resolved and now has atypical appearing floaters +PVD OD, no [place]'s +hemorrhage inferiorly; no h/b/t noted today -discussed findings with pt today -s/s RD/RT discussed; RTC ILAN if any symptoms arise -RTC 4-6 weeks DFE OD; sooner with issues Eye movement disorder 12/15/2024 Assessment & Plan (12/15/2024 2:15 PM CDT): By history, has some bilateral vertical movement of eyeball (but no visual distortion). 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 No optic nerve edema. No significant ocular movement disorder seen on exam except slight right exophoria and right hypophoria. Offer neuroopthalmology. Encourage covering one eye to see when it occur if unilateral or bilateral. Encourage use of reading glasses (explained supposed not to read without correction (sc)). Mixed hyperlipidemia 07/30/2024 Pseudophakia of both eyes 07/13/2024 Overview (10/12/2024): 07/13/2024- Extraction Cataract - Phacoemulsification And Lens Implant Left Eye - Left CCA0T0 of power 19.5D AIM: PLANO (will have cylinder (cyl)) 10/12/2024- Extraction Cataract - Phacoemulsification And Lens Implant Right Eye - Right CCA0T0 of power 20.5D AIM: PLANO (will have cylinder (cyl)) Assessment & Plan (03/10/2025 12:14 PM CDT): -excellent unaided acuities -MRx issued to pt today; PALs -follow Assessment & Plan (01/27/2025 11:08 AM CDT): -excellent unaided acuities -discussed need for reading glasses following surgery as he had plano aim -follow Assessment & Plan (12/15/2024 1:18 PM CDT): 07/13/2024- Extraction Cataract - Phacoemulsification And Lens Implant Left Eye - Left CCA0T0 of power 19.5D AIM: PLANO (will have cylinder (cyl)) Status-post Extraction Cataract - Phacoemulsification And Lens Implant Right Eye - Right 10/12/2024 CCA0T0 of power 20.5D AIM: PLANO (will have cylinder (cyl)) Best corrected vision is much improved and the patient is pleased with results. The eye is well-healed with no evidence of infection. Plan discontinue ocuflox and taper prednisione QID x 1week, TID (3) x 1 week, BID (2) x 1 week , then daily x 1week, then discontinue . Call if any inflammation increases or other symptoms worsen or occur. 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 The eye is well-healed with no evidence of infection. Plan discontinue ocuflox and taper prednisione QID x 1week, TID (3) x 1 week, BID (2) x 1 week , then daily x 1week, then discontinue . Call if any inflammation increases or other symptoms worsen or occur. Note meibomian gland dysfunction (MGD)- restart hot compresses Assessment & Plan (10/12/2024 12:46 PM CHIEF LOCK TENDER OPERATOR): Post op day 1s/p Extraction Cataract - Phacoemulsification And Lens Implant Right Eye - Right 10/12/2024 CCA0T0 of power 20.5D AIM: PLANO (will have cylinder (cyl)) No complaints; Doing well Use ofloxacin and prednisolone to operative eye QID; ok to stop antibiotic drop after 1 week Eye shield at bedtime, glasses or shield during the day PO instructions given RTC as scheduled, earlier if any complaints or concerns Assessment & Plan (09/21/2024 11:09 AM CHIEF LOCK TENDER OPERATOR): Status-post Extraction Cataract - Phacoemulsification And Lens Implant Left Eye - Left 07/13/2024 Pt notes vision may be sl better than prior to surgery, but feels not clear because of right eye (OD). BCVA 20/20. Well healed. Ok to proceed with cataract extraction (CE) right eye (OD). Assessment & Plan (07/24/2024 10:28 AM CHIEF LOCK TENDER OPERATOR): Status-post Extraction Cataract - Phacoemulsification And Lens Implant Left Eye - Left 07/13/2024 Best corrected vision is much improved and the patient is pleased with results. The eye is well-healed with no evidence of infection. Plan discontinue ocuflox and taper prednisione QID (4) x 1 week, TID (3) x 1 week, BID (2) x 1 week , then daily x 1week, then discontinue . Call if any inflammation increases or other symptoms worsen or occur. AFTs and hot compresses pt did not feel he was doing well at all. Showed how vision is better without correction (sc) than right eye (OD). Recheck Mrx with next visit Assessment & Plan (07/13/2024 3:31 PM CHIEF LOCK TENDER OPERATOR): Post op day 1s/p Extraction Cataract - Phacoemulsification And Lens Implant Left Eye - Left 07/13/2024 CCA0T0 of power 19.5D AIM: PLANO (will have cylinder (cyl)) No complaints; Doing well Use ofloxacin and prednisolone and ketorolac to operative eye QID; ok to stop antibiotic drop after 1 week Eye shield at bedtime, glasses or shield during the day PO instructions given RTC as scheduled, earlier if any complaints or concerns Floppy eyelid syndrome of both eyes 06/04/2024 Assessment & Plan (06/04/2024 3:08 PM CDT): 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 +ISMAEL Start maxitrol qhs OU Already on ABx for other issues, holding azithromycin/doxy at this time PRN prior to surgery if concerns Type 2 diabetes mellitus wit h hyperglycemia, with long-term current use of insulin 06/01/2024 Assessment & Plan (03/10/2025 12:14 PM CDT): -last A1c 5.8% -few DB hemes likely 2/2 DM, no CSME/DME noted today -ed pt on tight BG control -follow Fatigue 06/01/2024 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 Pain left eye (OS) has resolved, had been before and after eyelid surgery Left ventricular hypertrophy 04/23/2023 Overview (06/23/2023): TTE February 2019: Normal LVEF. Moderate LVH with septum 1.5 cm. vLVOT gradient 50 mmHg. Sister with LVOT gradient and septal hypertrophy - with respiratory failure TTE Sept 2022 with crescent shaped LV with max thickness 1.3 cm and strain findings c/w HCM. vLVOT 9 mmHg. 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 Being treated for vasculitis Primary osteoarthritis of right knee 09/27/2020 Overview (09/27/2020): Added automatically from request for surgery [id number] Cancer of brain treated with radiation therapy 0 01/15/2019 Chronic pain syndrome 08/13/2018 Cervical myelopathy with cervical radiculopathy 08/13/2018 Cervical radiculopathy 08/13/2018 Chronic pain 01/08/2018 Knee pain 06/25/2017 Arteriovenous disorder 04/02/2017 Cervical spondylosis 05/09/2016 Other spondylosis with radiculopathy, cervical r egion 05/09/2016 Inequality of length of lower extremity 08/20/20 14 Carpal tunnel syndrome 10/02/2012 Complete tear of rotator cuff 07/02/2012 Arthralgia of shoulder 07/02/2012 Osteoarthritis of knee 11/23/2010 Current Treatment and Therapy Plans No current plan information found. Other Current Plans LIDOCAINE INFUSION* Plan Start Date:05/05/2024 Plan Provider:Jules Sheffield MD Linked Problems Vasculitic neuropathy Treatment Medications No medications scheduled. methylPREDNISolone sodium succinate (SOLU-MEDROL) IV or Dexamethasone* Plan Start Date:12/19/2023 Plan Provider:Maryann Herndon MD Linked Problems Vasculitic neuropathy Treatment Medications No medications scheduled. Past Treatment and Therapy Plans Lifetime Dose Tracking * Chemical Lifetime Dose Automatic Entry Manual Entr y Fluoro Time 2.615 minutes 2.615 minutes 0 minutes Air kerma at the reference point (Ka,r) 24.82 mGy 2 4.82 mGy 0 mGy DLP 1,656 mGycm 1,656 mGycm 0 mGycm Resolved Problems Problem Noted Date Diagnosed Date Resolved Date Combined forms of age-relate d cataract of left eye 03/25/2024 07/13/2024 Ptosis of right eyelid 05/22/202301/15 Overview (06/28/2023): Seen by Dr. Alejandro and evaluated for ptosis sx. Scheduled but wanted to make sure no concerning field defect. OCT Done today demonstrates inferior thinning on nerve and GCL. No correlated superior deficit on VF. Only slight ptosis pattern OD VF. Pain of left orbit 03/25/2023 Overview (03/25/2023): ~6 mo hx, no trauma, hx of ptosis surgery, AMV s/p brain radiation with multiple brain aneurisms, feeling of swelling, no objective findings Assessment & Plan (06/28/2023 4:35 PM CDT): Persistent feeling, unchanged. No objective explanation for orbital pain, no evidence of mass occupying lesion, ant exam and DFE very reassuring. Pt CT Orbits IMPRESSION: No findings to explain the patient's left orbital discomfort. - Discuss pain with neurovascular doctor at next appt - F/u ophtho prn Assessment & Plan (03/25/2023 11:08 AM CDT): No objective explanation for orbital pain, no evidence of mass occupying lesion, ant exam and DFE very reassuring. Will not send for imaging at this time due to very low pre-test probability - Discuss pain with Dr. Alejandro at his appointment on 04/29/23 Combined forms of age-relate d cataract of right eye 03/25/2023 10/12/2024 Overview (03/25/2023): Vision ph to 20/20 OU, pt not bothered by them at this time Assessment & Plan (09/21/2024 11:08 AM CHIEF LOCK TENDER OPERATOR): Patient complains of significant symptoms and problems with activities of daily living due to visually significant disease. R/B/A of cataract surgery discussed with the patient including bleeding, infection, chronic inflammation, need for glasses and/or second surgery, loss of vision, loss of eye, and even very rarely, . Patient's questions were answered and wants to proceed with cataract extraction with intraocular lens implant. Pamphlet given and plans were made to schedule this elective surgery. Recommend phaco/intraocular lens (IOL) OD. Pre-op drops: ofloxacin. Post op drops: Prednisiolone Pre-op pre-operative testing needed: None- plan recalculation of current measurements. Aim: plano (will have cylinder (cyl)) Notes: 30/Consider malugyn ring for poor dilation and Consider trypan blue for poor view Assessment & Plan (07/24/2024 10:27 AM CHIEF LOCK TENDER OPERATOR): Likely vis sig, but want patient to see how left eye (OS) has healed prior to considering cataract extraction (CE) right eye (OD). Assessment & Plan (06/04/2024 3:07 PM CDT): Scheduled for surgery with LT PRN prior with me Assessment & Plan (01/16/2024 12:49 PM CDT): On chronic steroids infusion for vasculitis; has chronic pain when on steroids; will be off in February Patient complains of significant symptoms and problems with activities of daily living due to visually significant disease. R/B/A of cataract surgery discussed with the patient including bleeding, infection, chronic inflammation, need for glasses and/or second surgery, loss of vision, loss of eye, and even very rarely, . Patient's questions were answered and wants to proceed with cataract extraction with intraocular lens implant. Pamphlet given and plans were made to schedule this elective surgery. Recommend phaco/intraocular lens (IOL) OS. - usually goes without glases. Pre-op drops: ofloxacin and ketorolac. Post op drops: Prednisiolone Pre-op pre-operative testing needed: Ascan/automated topography/manual or auto K's. Aim: plano vs intermediated- matched! Notes: 30/TORIC vs. Multifocal TORIC Could consider right eye (OD) first if doesn't want to do toric left eye (OS) and wants to see how his vision uncorrect would be there. TPAP (insulin and steroid infusion) Assessment & Plan (11/27/2023 2:16 PM CDT): S/p repair of ptosis OU Here for cat eval - not currently in glasses and does not want to have reading glasses if he can avoid it I feel a toric MFIOL would be his best bet - refer to Dr. Najera Assessment & Plan (03/25/2023 11:11 AM CDT): Continue to monitor, pt will discuss surgery when symptomatic Ptosis of left eyelid 04/19/20222023 Overview (04/19/2022): Added automatically from request for surgery [id number]
--- OUTSIDE RECORDS SUMMARY | 2025-04-02 07:46 | XMS_ITS | Encounter Summary ---
Author Organization [facility] Healthcare Address [address] [place] [address] Care Team Providers Care Clinical Exercise Specialist Name Role Phone Jacky Jenkins MD Primary Care Prov ider Julia Orellana PT Unavailable [phone] Garth Fraga MD Unavailable [phone] Maryann Herndon MD Unavailable Brien Fine MD Unavailable [phone] Vilma Yang RN Unavailable [phone] iRna Swenson OD Unavailable [phone] José Antonio Skinner MD Unavailable [phone] Shereen Najera MD Unavailable [phone] Alanis Ospina OD Unavailable [phone] Reason for Visit * Reason Comments Generalized Body Aches * Episode Based Medications (Routine) - Authorized Specialty Diagnoses / Procedures Referred By Contac t Referred To Contact Diagnoses Vasculitic neuropathy Jules Sheffield MD [address] [place] [address] Phone: tel: fax: [facility] [address] [facility] [address] [place] [address] Phone: tel: fax: Referral ID Status Reason Start Date Expiration Date V isits Requested Visits Authorized [id number] Authorized 05/02/2024 06/01/2025 12 12 Encounter Details Date Type Department Care Team (Latest Contact Info) Description 04/01/2025 8:16 AM CDT - 04/01/2025 11:59 PM CDT Hospital Encounter [facility] [address] [facility] [address] [place] [address] Mara Greco, MARY [address] [place] [address] Other inflammatory polyneuropathies (Primary Dx); Pain in both lower extremities; Vasculitic neuropathy Discharge Disposition: Discharge to home or self care Social History Tobacco Use Types Packs/Day Years Used Date Smoking Tobacco: Never Passive Smoke Exposure: Past Smokeless Tobacco: Never Tobacco Cessation:Counseling Given: Not Answered Alcohol Use Standard Drinks/Week Comments No 0 (1 standard drink = 0.6 oz pur e alcohol) AUDIT-C Answer Date Recorded Q1: How often do you have a drink containing alcohol? Never 04/01/2025 Q2: How many drinks containi ng alcohol do you have on a typical day when you are drinking? Patient does not drink Q3: How often do you have si x or more drinks on one occasion? Never 04/01/2025 Personal Safety Answer Date Recorded Have you ever been in or are you currently in a harmful physical or emotional relationship or is someone making you feel afraid or unsafe? 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 on file Not on file documented as of this encounter Last Filed Vital Signs Vital Sign Reading Time Taken Comments Blood Pressure 121/53 04/01/2025 11:01 AM CDT Pulse 69 04/01/2025 11:01 AM CDT Temperature 37.6 C (99.7 F) 04/01/2025 8:34 AM CDT Respiratory Rate 16 04/01/2025 11:0 1 AM CDT Oxygen Saturation 95% 04/01/2025 11: 01 AM CDT Inhaled Oxygen Concentration - - Weight 132.6 kg (292 lb 6.4 oz) 04/01/2025 8:34 AM CDT Height 193 cm (6' 4) 04/01/2025 8:34 AM CDT Body Mass Index 35.59 04/01/2025 8:34 AM CDT documented in this encounter Functional Status * Audit-C Score Answer Date of Assessment Author 0 04/01/2025 8:38 AM CDT Pancho Prieto RN * Question Answer Date of Assessment Author Q1: How often do you have a drink containing alcohol? Never 04/01/2025 8:38 AM CDT Pancho Prieto RN Q2: How many drinks containing alcohol do you have on a typical day when you are drinking? Patient does not drink 04/01/2025 8:38 AM CDT Pancho Prieto RN Q3: How often do you have six or more drinks on one occasion? Never 04/01/2025 8:38 AM CDT Pancho Prieto RN documented as of this encounter Discharge Instructions * Patient Instructions* Pancho Prieto RN - 04/01/2025 9:00 AM CDT [facility] ([facility]) DISCHARGE INSTRUCTIONS MEDICATIONS: [x] Continue your current home medications Start: [x] Notify your pharmacy for refill(s) 7 days before you are out of your medication. [] Opioid (Narcotic) Agreement signed and patient received copy. [] Side Effects of Opioid Medications given to patient Resume blood thinner: On Discontinue: PROCEDURE at today's visit: lido infusion DIET: [x] Resume normal diet ACTIVITY: [x] See [facility] Post Discharge Procedure Information Sheet FOLLOW UP APPOINTMENTS: [x] Procedure at your next visit : lido infusion in April INSTRUCTIONS before your next procedure: [x] Product Manager [employer] needed for next procedure [x] Pre Procedure instructions will be sent through [employer] or by phone two working days prior to procedure. *Need help with [employer]? Call [phone]. Patient provided information and repeated back with understanding. If you need to reach us: For any questions about your procedure, please call the Pain Management Center [phone] ([phone]) (8am-4pm) If you need urgent attention after 5 pm and weekends: Call the [facility] Geophysical Manager at [phone] and ask for the Pain Service doctor electronic engraver. 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 Change sensor every 10 days DME ONLY 9 each 3 11/06/2024 cholecalciferol (VITAMIN D-3) 5,000 unit tabletIndications :Vitamin D Deficiency Take 125 mcg by mouth every morning cyanocobalamin (Vitamin B-12) 1,000 mcg tabletIndications :Prevention of Vitamin B12 Deficiency Take 1 tablet (1,000 mcg total) by mouth every morning DULoxetine DR (CYMBALTA) 30 mg capsuleIndication s:Idiopathic peripheral neuropathy TAKE 3 CAPSULES BY MOUTH DAILY 90 capsule 11 03/15/2025 finasteride (PROSCAR) 5 mg tabletIndications :benign prostatic hyperplasia with lower urinary tract sx Take 1 tablet (5 mg total) by mouth every morning folic acid (FOLVITE) 1 mg tabletIndications :Idiopathic peripheral neuropathy TAKE 1 TABLET(1 MG) BY MOUTH DAILY 30 tablet 11 03/02/2025 furosemide (LASIX) 40 mg tablet TAKE 1 TABLET BY MOUTH TWICE DAILY 60 tablet 01/25/2025 gabapentin (NEURONTIN) 600 mg tabletIndications :Neuropathic Pain Take 2 tablets (1,200 mg total) by mouth 3 (three) times a day 180 tablet 11 05/15/2024 insulin glargine (LANTUS) 100 unit/mL (3 mL) pen for injectionIndicati ons:Type 2 diabetes mellitus with diabetic neuropathy, unspecified whether mcc insulin use (HCC) Inject 22 Units under the skin daily 20 mL 3 02/17/2025 oxybutynin XL (DITROPAN-XL) 5 mg 24 hr tabletIndications :Increased Urinary Frequency,prostat e Take 1 tablet (5 mg total) by mouth nightly 2022 pioglitazone (ACTOS) 30 mg tabletIndications :Type 2 diabetes mellitus with diabetic neuropathy, unspecified whether mcc insulin use (HCC) TAKE 1 TABLET(30 MG) BY MOUTH DAILY 90 tablet 3 12/15/2024 rosuvastatin (CRESTOR) 5 mg tablet Take 1 tablet (5 mg total) by mouth daily 90 tablet 3 10/19/2024 semaglutide (OZEMPIC) 2 mg/dose (8 mg/3 mL) pen injector injectionIndicati ons:type 2 diabetes mellitus Inject 2 mg under the skin once a week 3 mL 11 01/26/2025 traMADoL (ULTRAM) 50 mg tabletIndications :Chronic pain syndrome Take 1 tablet (50 mg total) by mouth every 6 (six) hours as needed for pain MAX dose 5 tabs per day 150 tablet 03/22/2025 TRUEplus Pen Needle 32 gauge x 5/32 needleIndications :Type 2 Diabetes nightly 04/08/2023 documented as of this encounter Discharge Disposition Disposition Code Departure Means Destination Discharge to home or self care documented in this encounter Progress Notes * Mara Greco, CARPENTER INSPECTOR - 04/01/2025 9:00 AM CDT Patient Name: Yusuf Antunez : 1955 DOS: 04/01/2025 PCP: Jacky Jenkins MD Provider :Mara Greco CHEMICAL HANDLER- Procedures NAME OF PROCEDURE: Intravenous Lidocaine Infusion PRE-PROCEDURE DIAGNOSES: Encounter Diagnoses Name Primary? Other inflammatory polyneuropathies Yes Pain in both lower extremities POST-PROCEDURE DIAGNOSES:Same as above INDICATION FOR PROCEDURE: Encounter Diagnoses Name Primary? Other inflammatory polyneuropathies Yes Pain in both lower extremities INFORMED CONSTENT: After reviewing the procedure with the patient, informed consent to proceed withthe injection was obtained. A procedural permit was also signed. Last infusion : 06/25/25 degree of benefit 50-60 % lasted 2 # weeks DESCRIPTION OF PROCEDURE: Cardiac, liver, or kidney disease: [x] NO [] YES Sex: [x] Male [] Female [place] Body Weight:86 Bedrest during infusion: [] NO [x] YES Monitoring: Obtain baseline Vital signs - Temperature, HR, RR, BP, and pain scale Then vital signs - HR, RR, BP, pain scale 5 minutes X4 Then Q10 minutes until infusion complete, then Q15 minutes x2 Continuous ECG Monitoring and oxygen saturations Since last seen for lidocaine infusion has there been any change in your medical condition ? Review of Systems - see above Physical Exam Constitutional: Appearance: Normal appearance. HENT: Head: Normocephalic and atraumatic. Nose: Nose normal. Mouth/Throat: Mouth: Mucous membranes are moist. Cardiovascular: Rate and Rhythm: Normal rate and regular rhythm. Pulmonary: Effort: Pulmonary effort is normal. Abdominal: Palpations: Abdomen is soft. Musculoskeletal: General: Tenderness present. Cervical back: Normal range of motion. Skin: General: Skin is warm and dry. Neurological: General: No focal deficit present. Mental Status: He is alert and oriented to person, place, and time. Mental status is at baseline. Psychiatric: Mood and Affect: Mood normal. Behavior: Behavior normal. Thought Content: Thought content normal. Judgment: Judgment normal. Pain Assessment Pain Score: 6 Pain Location: Generalized Pain Descriptors: Aching, Burning, Sharp, Stabbing, Shooting, Tingling, Numbness, Throbbing Pain Frequency: Constant/continuous The patient didn't reports/develops any sign(s) of Lidocaine Toxicity listed below: - Numbness around the mouth or tongue - Metallic taste in mouth - Lightheadedness, dizziness - Sleepiness - Non-sinus rhythm on ECG - Nausea - Tachycardia HR >130 bpm - Bradycardia HR < 40 bpm - O2 sat <90% with supplemental O2 - BP changes - systolic hypotension or hypertension >180 or <70 mmHg or Diastolic hypertension >110 mmHg Chemistry Lab Results Component Value Date SODIUM 142 06/01/2024 POTASSIUM 4.1 06/01/2024 CHLORIDE 103 06/01/2024 CO2 29 10/27/2024 ANIONGAP 6 06/01/2024 BUNSER 17 06/01/2024 CREATININE 0.94 10/27/2024 GLUCOSE 85 10/27/2024 CALCIUM 9.5 10/27/2024 BILITOT 0.65 10/27/2024 PROTEIN 5.9 (L) 02/12/2024 ALBUMIN 4.1 10/27/2024 GFRNAA 84 06/01/2024 ALKPHOS 63 10/27/2024 AST 18 10/27/2024 ALT 19 10/27/2024 PHOS 3.0 11/27/2023 MAGNESIUM 2.0 11/27/2023 MEDICATION: 500 mg of Lidocaine 2% Preservative Free in 250 ml NS (2mg/ml) Infusion:The patient received a bolus dose of 5 mg per kg of ideal body weight which follows by a 1mg/kg bolus over 5 minutes and then, infusion 3mg/minute for a total dose. Total lidocaine given was 434 mg. Patient denies any recent anesthetic procedure . Pre procedure : Lidocaine Infusion: I reviewed the patient medical records. I explained the risks/benefits of lidocaine systemic infusion therapy with the patient. The risks including local anesthesia systemic toxicity for which we will have intensive monitoring of the patient during the infusion to prevent drug toxicity. See the procedure note for the details of the monitoring. I answered all the patient's questions and the patient agreed to proceed with the lidocaine systemic infusion therapy. The procedure was well tolerated, and there were no apparent complications. The patient had moderate relief of pain from the treatment. Pain score Pre-infusion:6-7/10 Pain score Post-infusion: 5/10 MJessica HAYNES- was present for, and participated in, critical points( consent , time out and bolus) procedure. Patient periodically observed by examiner throughout infusion . DISPOSITION: Patient was discharged home instable condition. Post procedure instructions: No driving for the remainder of today. - next infusion can be scheduled by clinic Patient Name: Yusuf Antunez : 1955 Today's Date: 04/01/2025 PCP: Jacky Jenkins MD Referring: Jules Sheffield MD Chief Complaint Patient presents with Generalized Body Aches HPI HISTORICAL INFO: INTERVAL HISTORY (04/01/2025): Mr. Yusuf Antunez returns to care for persistent low back and legs pain. He reports no new numbness, weakness, bowel/bladder incontinence. Since the last visit, the pain is unchanged . He denies any side effects to current pain ( alanna, tramadol ) medications. The pain is constant and described as see below . He rates his pain pain today prior to infusion 6-03/18. He denies any changes in his health status since last seen. We will proceed with Lidocaine infusion . Pain Assessment Pain Score: 6 Pain Location: Generalized Pain Descriptors: Aching, Burning, Sharp, Stabbing, Shooting, Tingling, Numbness, Throbbing Pain Frequency: Constant/continuous Modified Oswestry Modified Oswestry Low Back Pain Score: (Patient-Rptd) 21 Percentage: (Patient-Rptd) 42 Current Pain meds: Pain Medications DULoxetine DR (CYMBALTA) 30 mg capsule TAKE 3 CAPSULES BY MOUTH DAILY gabapentin (NEURONTIN) 600 mg tablet Take 2 tablets (1,200 mg total) by mouth 3 (three) times a day traMADoL (ULTRAM) 50 mg tablet Take 1 tablet (50 mg total) by mouth every 6 (six) hours as needed for pain MAX dose 5 tabs per day Review of Systems Review of Systems Musculoskeletal: Positive for back pain. Low back and both legs Neurological: Positive for sensory change. All other systems reviewed and are negative. Patient's Medications New Prescriptions No medications on file Previous Medications ASCORBIC ACID (VITAMIN C) 1,000 MG TABLET Take 1 tablet (1,000 mg total) by mouth every morning Authorizing Provider: Ruchi Woo MD Notes: -- BLOOD-GLUCOSE SENSOR (DEXCOM G7 SENSOR) DEVICE Use with Dexcom G7 System to continuously monitor blood glucose. Change sensor every 10 days DME ONLY Authorizing Provider: Ekta Marin MD Notes: -- CHOLECALCIFEROL (VITAMIN D-3) 5,000 UNIT TABLET Take 125 mcg by mouth every morning Authorizing Provider: Ruchi Woo MD Notes: -- CYANOCOBALAMIN (VITAMIN B-12) 1,000 MCG TABLET Take 1 tablet (1,000 mcg total) by mouth every morning Authorizing Provider: Ruchi Woo MD Notes: -- DULOXETINE DR (CYMBALTA) 30 MG CAPSULE TAKE 3 CAPSULES BY MOUTH DAILY Authorizing Provider: Maryann Herndon MD Notes: -- FINASTERIDE (PROSCAR) 5 MG TABLET Take 1 tablet (5 mg total) by mouth every morning Authorizing Provider: Ruchi Woo MD Notes: -- FOLIC ACID (FOLVITE) 1 MG TABLET TAKE 1 TABLET(1 MG) BY MOUTH DAILY Authorizing Provider: Maryann Herndon MD Notes: -- FUROSEMIDE (LASIX) 40 MG TABLET TAKE 1 TABLET BY MOUTH TWICE DAILY Authorizing Provider: Brien Fine MD Notes: -- GABAPENTIN (NEURONTIN) 600 MG TABLET Take 2 tablets (1,200 mg total) by mouth 3 (three) times a day Authorizing Provider: Jules Sheffield MD Notes: -- INSULIN GLARGINE (LANTUS) 100 UNIT/ML (3 ML) PEN FOR INJECTION Inject 22 Units under the skin daily Authorizing Provider: Ekta Marin MD Notes: -- OXYBUTYNIN XL (DITROPAN-XL) 5 MG 24 HR TABLET Take 1 tablet (5 mg total) by mouth nightly Authorizing Provider: Ruchi Woo MD Notes: -- PIOGLITAZONE (ACTOS) 30 MG TABLET TAKE 1 TABLET(30 MG) BY MOUTH DAILY Authorizing Provider: Ekta Marin MD Notes: -- ROSUVASTATIN (CRESTOR) 5 MG TABLET Take 1 tablet (5 mg total) by mouth daily Authorizing Provider: Anne Moran NP Notes: -- SEMAGLUTIDE (OZEMPIC) 2 MG/DOSE (8 MG/3 ML) PEN INJECTOR INJECTION Inject 2 mg under the skin once a week Authorizing Provider: Anne Moran NP Notes: -- TRAMADOL (ULTRAM) 50 MG TABLET Take 1 tablet (50 mg total) by mouth every 6 (six) hours as needed for pain MAX dose 5 tabs per day Authorizing Provider: Elisha Umaña MD PhD Notes: -- TRUEPLUS PEN NEEDLE 32 GAUGE X 5/32 NEEDLE nightly Authorizing Provider: Ruchi Woo MD Notes: -- Modified Medications No medications on file Discontinued Medications No medications on file Allergies Allergen Reactions Sulfa (Sulfonamide Antibiotics) Itching Lab Results Component Value Date WBC 7.9 10/27/2024 HGB 15.8 10/27/2024 HCT 46.7 10/27/2024 MCV 89.3 10/27/2024 LABPLAT 200 06/01/2024 Physical Exam: Vitals: 04/01/25 0834 04/01/25 0900 04/01/25 0905 BP: 111/72 129/91 125/60 BP Location: Left arm Left arm Patient Position: Sitting Sitting Sitting Pulse: 74 70 69 Resp: 18 20 13 Temp: 99.7 ??F (37.6 ??C) SpO2: 94% 93% 97% Weight: 132.6 kg (292 lb 6.4 oz) Height: 193 cm (6' 4) Body mass index is 35.59 kg/m??. GENERAL: In no acute distress. Well-developed and well nourished. PSYCHOLOGICAL: Alert and oriented. Cooperative, normal stated mood, congruent affect. HENT: Normocephalic, atraumatic. Hearing adequate for conversation. EYES: Non-icteric sclera. ABDOMEN: Non-distended RESPIRATORY: Non-labored breathing. No audible cough or wheeze. CARDIOVASCULAR: No edema. Bilateral lower extremities are warm and well perfused. SKIN: No rashes or open wounds involving visible areas of skin that are exposed NEUROLOGIC: Cranial Nerves: II-XII grossly intact Assessment: The above note documents my personal evaluation of this patient. In addition, I have reviewed and confirmed with the patient and nurse the supportive information documented in today's scanned PatientHealth Questionnaire and Office Note. 69 y.o. y/o with signs and symptoms of see below who has failed conservative treatments (including:physical therapy (more than 4 weeks), HEP, medications). Encounter Diagnoses Name Primary? Other inflammatory polyneuropathies Yes Pain in both lower extremities Vasculitic neuropathy Multidisciplinary Pain Management Plan: 1. Interventions: R/B/A discussed, proceed with Lidocaine infusion Patient has a complex condition requiring ongoing longitudinal care. 2. Medications: No changes in medication DISPOSITION: Patient was discharged home instable condition. Post procedure instructions: No driving for the remainder of today. - next infusion can be scheduled by clinic IVY Arevalo -CHRISTINA * Pancho Prieto RN - 04/01/2025 9:00 AM CDT Lidocaine Infusion Summary Administrations This Visit lidocaine 2 mg/mL bolus from bag 86 mg Admin Date 04/01/2025 Action Bolus from Bag Dose 86 mg Route intravenous Documented By Pancho Prieto RN lidocaine 500 mg in sodium chloride 0.9% 250mL (2 mg/mL) infusion Admin Date 04/01/2025 Action New Bag Dose 348 mg Route intravenous Documented By Pancho Prieto, RN Patient had no complication throughout the infusion Patient rate pain 7 at start and 5 - Moderate pain at end of procedure Patient received 40% benefit from the lidocaine infusion. Total time of infusion: 121 mins. documented in this encounter Plan of Treatment Not on [...] documented as of this encounter Visit Diagnoses Diagnosis Other inflammatory polyneuropathies- Primary Pain in both lower extremities Vasculitic neuropathy Unspecified arteritis documented in this encounter Administered Medications Inactive Administered Medications - up to 3 most recent administrations Medication Order MAR Action Action Date Dose Rate Site lidocaine 2 mg/mL bolus from bag 86 mg 86 mg (rounded from 86.8 mg = 1 mg/kg 86.8 kg [place] weight), intravenous, Administer over 5 Minutes, Once, On Juju 04/01/25 at 0915, For 1 doseIndications:Vasculitic neuropathy Bolus from Bag 04/01/2025 9:00 AM CDT 86 mg lidocaine 500 mg in sodium chloride 0.9% 250mL (2 mg/mL) infusion 348 mg (rounded from 347.2 mg = 4 mg/kg 86.8 kg [place] weight), intravenous, Continuous, Starting on Juju 04/01/25 at 0915, Administration rate 3 mg/min (90 mL/hr) until Ordered Admin Amount is completed.Indications:Vasculiti c neuropathy New Bag 04/01/2025 9:05 AM CDT 348 mg documented in this encounter Orders Medications Ordered That Yury ht Not Have Been Administered Count Last Ordered Date First Ordered Date fat emulsion (INTRALIPID,LIP OSYN) 20 % infusion 20 g 1 04/01/2025 fat emulsion (INTRALIPID,LIP OSYN) 20 % infusion 50 g 1 04/01/2025 sodium chloride 0.9% flush 10 mL 1 04/01/20 sodium chloride 0.9% infusion 1 04/01/2025 Appointment Requests Count Last Ordered Date Fi rst Ordered Date INFUSION APPT REQUEST 180 MIN 2 04/01/2025 documented in this encounter Care Teams Clinical Exercise Specialist Relationship Specialty Start Date End Date Jacky Jenkins MD [address] [place] [address] PCP - General 01/01/13 Julia Orellana, PT [address] [facility] [address] [place] [address] Physical Therapist Physical Therapy 10/16/20 Garth Fraga MD [address] [place] [address] Wet Mixer Dermatology 09/15/21 Maryann Herndon MD [address] [place] [address] Consulting Physician Neurology 04/04/22 Brien Fine MD [address] [place] [address] Income Tax Analyst Transplant 04/23/23 Vilma Yang, RN [address] [facility] [address] [place] [address] Heart Failure Coordinator Stranding Machine Operator Helper 04/23/23 Rina Swenson, OD [address] [place] [address] Optometry 04/29/23 José Antonio Skinner MD [address] [place] [address] Consulting Physician Urology 12/11/23 Shereen Najera MD [address] DEPT OPHTHALMOLOGY, [facility] [address] [place] [address] Ophthalmology 03/03/25 Alanis Ospina, OD [address] DEPT OPHTHALMOLOGY, [address] [place] [address] Optometry 03/03/25 documented as of this encounter
--- OUTSIDE RECORDS SUMMARY | 2025-04-02 07:46 | XMS_ITS | Clinical Summary ---
Author Organization [facility] Address [address] [place] [address] Care Team Providers Care Cook Enchilada Name Role Phone Jacky Jenkins MD Primary Care Provider + Source Comments [facility],non-owned Affiliates and Associated Physician Practices is amultiple site organization consisting of ambulatory clinics and hospital sitesin [place], [place], [place] and [place]. This disclosure is being madepursuant to the Care Everywhere program and may not contain all information available regarding this patient. Last updated 18.[facility] Allergies Active Allergy Reactions Criticality Noted Date Comments Sulfa Drugs Itching Medium 09/26/2018 Medications * Be aware that medications may not be up to date on this document. Alwaysverify current medications with the patient. fexofenadine-ps eudoephedrine ER 12hr (JODI-D) 60-120 MG tablet Take 1 tablet by mouth 2 times daily as needed for Allergies Active multivitamin daily tablet Take 1 tablet by mouth daily with food Active ascorbic acid (VITAMIN C) 500 MG tablet Take 500 mg by mouth once daily Active Active Problems Problem Noted Date Diagnosed Date Cervical myelopathy with cervical radiculopathy 10/06/2018 Cancer of brain treated with radiation therapy Social History Tobacco Use Types Packs/Day Years Used Date Smoking Tobacco: Never Smokeless Tobacco: Never Alcohol Use Standard Drinks/Week Comments No 0 (1 standard drink = 0.6 oz pur e alcohol) Sex and Gender Information Value Date Recorded Sex Assigned at Not on file Legal Sex Male 6:15 AM ENGINEERING PROGRAM ANALYST Gender Identity Not on file Sexual Orientation Not on file Last Filed Vital Signs Vital Sign Reading Time Taken Comments Blood Pressure 128/94 10/11/2018 3:38 AM ENGINEERING PROGRAM ANALYST Pulse 65 10/11/2018 3:38 AM ENGINEERING PROGRAM ANALYST Temperature 36.6 C (97.8 F) 10/11/2018 3:38 AM ENGINEERING PROGRAM ANALYST Respiratory Rate 16 10/11/2018 3:38 AM ENGINEERING PROGRAM ANALYST Oxygen Saturation 93% 10/11/2018 3:38 AM ENGINEERING PROGRAM ANALYST Inhaled Oxygen Concentration 40% 10/07/2018 9 :25 AM ENGINEERING PROGRAM ANALYST Weight 112.6 kg (248 lb 3.8 oz) 10/09/2018 3:00 AM ENGINEERING PROGRAM ANALYST Height 190.5 cm (6' 3) 10/09/2018 3:00 AM ENGINEERING PROGRAM ANALYST Body Mass Index 31.03 10/09/2018 3:00 AM ENGINEERING PROGRAM ANALYST Plan of Treatment Health Maintenance Due Date Last Done Comments COLOGUARD (AGES 45-75) - COL ON CA SCREENING 1953 COLON MONITORING 1953 COLONOSCOPY - COLON CA SCREENING 1953 CT COLONOGRAPHY - COLON CA SCREENING 1953 Colorectal Cancer Screening 1953 FIT - COLON CA SCREENING 1953 FLEX SIG - COLON CA SCREENING 1953 LIPID TESTING 1953 MEDICARE AWV 12 MONTHS 1953 HEPATITIS C SCREENING 04/13/1971 DTAP/TDAP/TD VACCINES (1 - Tdap) 1972 PNEUMOCOCCAL VACCINE 50+ (1 of 1 - PCV) 2003 ZOSTER VACCINE (1 of 2) 2003 COVID-19 VACCINE (1 - 2023-2 5 season) 2024 DEPRESSION SCREENING 09/09/2024 INFLUENZA VACCINE (#1) 2025 Respiratory Syncytial Virus (RSV) Vaccine Pt: or over 60 yrs (1 - 1-dose 75+ series) 2028 HEPATITIS B VACCINE Aged Out No longe r eligible based on patient's age to complete this topic HIB VACCINE Aged Out No longer eligi ble based on patient's age to complete this topic HPV VACCINE Aged Out No longer eligi ble based on patient's age to complete this topic MENINGOCOCCAL (Group B) VACC INE SHARED DECISION-MAKING Aged Out No longer eligibl e based on patient's age to complete this topic MENINGOCOCCAL GROUPS A/C/Y/W VACCINE Aged Out No longer eligible b ased on patient's age to complete this topic Medical Devices Implanted Type Area Public Works Inspector Device Identifier Shelf Expiration Date Model / Serial / Lot Kit Tissue Clsr Duo Tssl 1 Prefl [facility] - [id number] Implanted:Qty: 1 on 10/06/2018 by Sarath Rascon MD at [facility][note 3] [employer] 03/08/2020 [id number] / [id number] 2 / [id number] Medium Cage Implanted:Qty: 2 on 10/06/2018 by Sarath Rascon MD at [facility] Spine Cervical Titan Spine [id number] / / Large Cage Implanted:Qty: 1 on 10/06/2018 by Sarath Rascon MD at [facility] Cervical Titan Spine [id number] / / Large Cage Implanted:Qty: 1 on 10/06/2018 by Sarath Rascon MD at [facility] Spine Cervical Titan Spine [id number] / / 85mm Goodell Trans Plate Implanted:Qty: 1 on 10/06/2018 by Sarath Rascon MD at [facility][note 3] [id number] / / 4.0x16 S.T.Variable Screw Implanted:Qty: 8 on 10/06/2018 by Sarath Rascon MD at [facility][note 3] [id number] / / 4.0 X16 S.D.Variable Screw Implanted:Qty: 1 on 10/06/2018 by Sarath Rascon MD at [facility][note 3] [id number] / / 4.0x17 S.D. Variable Screw Implanted:Qty: 1 on 10/06/2018 by Sarath Rascon MD at [facility][note 3] [id number] / / Sub Bngf Progenix Dbm Bvn Clgn Ptty 1ml Implanted:Qty: 1 on 10/06/2018 by Sarath Rascon MD at [facility][note 3] Spinal [employer] 02/22/2020 [id number] / / [id number] Sub Bngf Progenix Dbm Bvn Clgn Ptty 1ml Implanted:Qty: 1 on 10/06/2018 by Sarath Rascon MD at [facility][note 3] Spinal [employer] 02/22/2020 [id number] / / [id number] Graft Bone Infs Rhbmp-2 Bvn Clgn 2xs Implanted:Qty: 1 on 10/06/2018 by Sarath Rascon MD at [facility][note 3] Medtronic Sofamor [employer] 07/09/2019 [id number] / / [id number] Graft Bone Infs Rhbmp-2 Bvn Clgn 2xs Implanted:Qty: 1 on 10/06/2018 by Sarath Rascon MD at [facility][note 3] Medtronic Sofamor [employer] 07/09/2019 [id number] / / [id number] Bone Canc Crush 5.0cc - [id number] Implanted:Qty: 1 on 10/06/2018 by Sarath Rascon MD at [facility][note 3] [employer]ource 01/05/2021 [id number] / [id number] / [id number] Graft Bone Canc 30ml Crsh Chp Frzn Implanted:Qty: 1 on 10/06/2018 by aSrath Rascon MD at [facility][note 3] [employer] 08/03/2022 [id number] / / [id number] Graft Bone Infs Rhbmp-2 Bvn Clgn 2xs Implanted:Qty: 1 on 10/06/2018 by Sarath Rascon MD at [facility][note 3] Medtronic [employer] 07/09/2019 [id number] / / [id number] Floseal Hemostatic Matrix Implanted:Qty: 2 on 10/06/2018 by Sarath Rascon MD at [facility][note 3] [employer] 02/10/2020 [id number] / / [id number] Insurance MEDICARE MEDICARE [facility] MEDICARE ANTHEM MEDICARE [facility] PAYOR [facility] PAYOR GENERIC Advance Directives * Full Code (Latest Code Status on File) Date Activated Date Inactivated Comments 10/06/2018 2:44 PM 10/11/2018 12:35 PM Care Teams Cook Enchilada Relationship Specialty Start Date End Date Jacky Jenkins MD [address] [address] PCP - General Family Medicine 09/26/18
--- OUTSIDE RECORDS SUMMARY | 2025-04-02 07:46 | XMS_ITS | Encounter Summary ---
Author Organization [facility] Address [address] [place] [address] Care Team Providers Care Awake Overnight Monitor Name Role Phone Jacky Jenkins MD Primary Care Provider + Encounter Details Date Type Department Care Team (Late st Contact Info) Description 09/18/2021 Lab Requisition [facility] D[facility] Lab [address] [facility] [place] [id number] Cesario Fraga MD [address] [address] Social History Tobacco Use Types Packs/Day Years Used Date Smoking Tobacco: Never Smokeless Tobacco: Never Alcohol Use Standard Drinks/Week Comments No 0 (1 standard drink = 0.6 oz pur e alcohol) Sex and Gender Information Value Date Recorded Sex Assigned at Not on file Legal Sex Male 6:15 AM RN UTILIZATION MANAGEMENT UM Gender Identity Not on file Sexual Orientation Not on file documented as of this encounter Functional Status * Is person deaf or have serious hearing difficulty? Answer Date of Assessment Author No 10/06/2018 3:47 PM Earnestine Sequeira RN * Is person blind or have serious difficulty seeing? Answer Date of Assessment Author No 10/06/2018 3:47 PM Earnestine Sequeira RN * Does person have serious difficulty walking/climbing stairs? Answer Date of Assessment Author No 10/06/2018 3:47 PM Earnestine Sequeira RN * Does person have difficulty dressing/bathing? Answer Date of Assessment Author No 10/06/2018 3:47 PM Earnestine Sequeira RN * Does person have difficulty doing errands alone? Answer Date of Assessment Author No 10/06/2018 3:47 PM Earnestine Sequeira RN documented as of this encounter Mental Status * Does person have difficulty concentrating/remembering/making decisions? Answer Entry Date Author No 10/06/2018 3:47 PM RN UTILIZATION MANAGEMENT UM Earnestine Lane RN documented in this encounter Plan of Treatment Not on file documented as of this encounter Procedures Procedure Name Priority Date/Time Associated Diagnosis Comments DERMATOPATHOLOGY Routine 09/18/2021 12:0 0 AM RN UTILIZATION MANAGEMENT UM documented in this encounter Results * DERMATOPATHOLOGY (09/18/2021 12:00 AM RN UTILIZATION MANAGEMENT UM) Case Report Dermatopathology Report Case: [id number] Authorizing Provider: Cesario Fraga MD Collected: 09/18/2021 12:00 AM Ordering Location: [facility] DermPath Lab Received: 09/18/2021 02:55 PM Pathologist: Tabatha Mulligan MD Specimen: Skin, left post shoulder 2 4:03 PM [facility] DERMATOPATHOLOGY [facility]OR[facility] Final Diagnosis Specimen A. SKIN, left post shoulder: PSORIASIFORM DERMATITIS (L44.8) (see microscopic description and comment) 2 4:03 PM [facility] DERMATOPATHOLOGY [facility]ORATORY at 1603 RN UTILIZATION MANAGEMENT UM Clinical History Psoriasis vs eczema vs drug eruption. [id number] 2 4:03 PM [facility] DERMATOPATHOLOGY [facility]OR[facility] Gross Description Specimen A: Received is one formalin filled container labeled with the patient's name and designated left post shoulder. The specimen consists of a shave biopsy measuring 9x7x1 mm. Jar 0. 2 4:03 PM [facility] DERMATOPATHOLOGY [facility]OR[facility] Microscopic Description Specimen A. SKIN, left post shoulder: There is psoriasiform hyperplasia of the epidermis with focal parakeratosis and spongiosis. The granular layer is mostly retained. There is a superficial, mainly lymphohistiocytic inflammatory infiltrate. Grocott's methenamine silver (GMS) stain fails to highlight fungal elements in the available sections. Additional deeper sections were obtained and reviewed. COMMENT: The histological differential diagnosis includes chronic eczematous dermatitis, favored, and early / partially treated psoriasis. 2 4:03 PM [facility] DERMATOPATHOLOGY [facility]ORAT[facility] Disclaimer An external and internal positive and negative controls are appropriate for the histochemical, immunohistochemical and immunofluorescence stain(s) in this case (if any), except where stated explicitly. The performance characteristics of the stain(s) cited in this report were developed and its performance characteristic determined by the Dermatopathology Laboratory at [facility], directed by Dr. Kat Dey. These tests need not be, and therefore are not, approved by the [place] Food and Drug Administration. The tests are used for clinical purposes. Billing Codes Specimen Charges Stain Charges 36306 1 69934 1 2 4:03 PM RN UTILIZATION MANAGEMENT UM DERMATOPATHOLOGY LABORATORY Embedded Images 2 4:03 PM RN UTILIZATION MANAGEMENT [facility] D[facility]MATOPATHOLOGY LAB[facility]ORY Pathology/Cytolog y TISSUE SPECIMEN FROM SKIN / Unknown 09/18/2021 09/18/2021 2:55 PM RN UTILIZATION MANAGEMENT UM Cesario Fraga MD LAB - PATHOLOGY/CYTOLOGY ORDER RYANNE Final Result DERMATOPATHOLOGY LABORATORY [facility] - Department of Dermatology [facility] Special[facility] Medicine [address] [place] [address], [address] [phone] documented in this encounter Visit Diagnoses Not on filedocumented in this encounter Care Teams Awake Overnight Monitor Relationship Specialty Start Date End Date Jacky Jenkins MD [address] [address] PCP - General Family Medicine 09/26/18 documented as of this encounter
--- OUTSIDE RECORDS SUMMARY | 2025-04-02 07:46 | XMS_ITS | Clinical Summary ---
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 Name Role Phone Jacky Jenkins MD Primary Care Prov ider Julia Orellana PT Unavailable [phone] Garth Fraga MD Unavailable [phone] Maryann Herndon MD Unavailable Brien Fine MD Unavailable [phone] Vilma Yang RN Unavailable [phone] Rina Swenson OD Unavailable [phone] José Antonio Skinner MD Unavailable [phone] Shereen Najera MD Unavailable [phone] Alanis Ospina OD Unavailable [phone] Allergies Active Allergy Reactions Criticality Noted Date Comments Sulfa (Sulfonamide Antibiotics) Itching Medium 10/2017 Medications cholecalcifero l (VITAMIN D-3) 5,000 unit tabletIndicati ons:Vitamin D Deficiency Take 125 mcg by mouth every morning Active finasteride (PROSCAR) 5 mg tabletIndicati ons:benign prostatic hyperplasia with lower urinary tract sx Take 1 tablet (5 mg total) by mouth every morning Active ascorbic acid (VITAMIN C) 1,000 mg tabletIndicati ons:Vitamin C Deficiency Take 1 tablet (1,000 mg total) by mouth every morning Active cyanocobalamin (Vitamin B-12) 1,000 mcg tabletIndicati ons:Prevention of Vitamin B12 Deficiency Take 1 tablet (1,000 mcg total) by mouth every morning Active oxybutynin XL (DITROPAN-XL) 5 mg 24 hr tabletIndicati ons:Increased Urinary Frequency,pros julien Take 1 tablet (5 mg total) by mouth nightly 04/17/20 22 Active TRUEplus Pen Needle 32 gauge x 32 needleIndicati ons:Type 2 Diabetes nightly 04/08/20 23 Active gabapentin (NEURONTIN) 600 mg tabletIndicati ons:Neuropathi c Pain Take 2 tablets (1,200 mg total) by mouth 3 (three) times a day 180 tablet 11 05/15/20 24 025 Active rosuvastatin (CRESTOR) 5 mg tablet Take 1 tablet (5 mg total) by mouth daily 90 tablet 3 10/19/19 25 026 Active blood-glucose sensor (Dexcom G7 Sensor) deviceIndicati ons: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 Change sensor every 10 days DME ONLY 9 each 3 11/06/19 25 Active pioglitazone (ACTOS) 30 mg tabletIndicati ons:Type 2 diabetes mellitus with diabetic neuropathy, unspecified whether shelter insulin use (HCC) TAKE 1 TABLET(30 MG) BY MOUTH DAILY 90 tablet 3 12/16/19 25 Active furosemide (LASIX) 40 mg tablet TAKE 1 TABLET BY MOUTH TWICE DAILY 60 tablet 01/26/20 25 Active semaglutide (OZEMPIC) 2 mg/dose (8 mg/3 mL) pen injector injectionIndic ations:type 2 diabetes mellitus Inject 2 mg under the skin once a week 3 mL 01/27/20 25 Active insulin glargine (LANTUS) 100 unit/mL (3 mL) pen for injectionIndic ations:Type 2 diabetes mellitus with diabetic neuropathy, unspecified whether terminal gauger supervisor insulin use (HCC) Inject 22 Units under the skin daily 20 mL 3 02/18/20 25 026 Active folic acid (FOLVITE) 1 mg tabletIndicati ons:Idiopathic peripheral neuropathy TAKE 1 TABLET(1 MG) BY MOUTH DAILY 30 tablet 11 03/02/[address] (CYMBALTA) 30 mg capsuleIndicat ions:Idiopathi c peripheral neuropathy TAKE 3 CAPSULES BY MOUTH DAILY 90 capsule 03/15/20 25 Active traMADoL (ULTRAM) 50 mg tabletIndicati ons:Chronic pain syndrome Take 1 tablet (50 mg total) by mouth every 6 (six) hours as needed for pain MAX dose 5 tabs per day 150 tablet 03/22/[address] (CYMBALTA) 30 mg capsuleIndicat ions:Idiopathi c peripheral neuropathy TAKE 3 CAPSULES BY MOUTH DAILY 90 capsule 10/28/19 25 025 Discontinued traMADoL (ULTRAM) 50 mg tabletIndicati ons:Chronic pain syndrome Take 1 tablet (50 mg total) by mouth 5 (five) times a day 150 tablet 02/16/20 25 025 Discontinued Active Problems Problem Noted Date Diagnosed Date PVD (posterior vitreous detachment), right eye 0 01/27/2025 Assessment & Plan (03/10/2025 12:14 PM CDT): +stable PVD OD, no Whiting's -inferior hemorrhage resolved OD -s/s RD/RT discussed with pt today; RTC ILAN if any symptoms arise -follow annually Assessment & Plan (01/27/2025 11:09 AM CDT): +floaters, flashes of light OD x yesterday; flashes have resolved and now has atypical appearing floaters +PVD OD, no Jose's +hemorrhage inferiorly; no h/b/t noted today -discussed [...] compresses Assessment & Plan (10/30/2024 9:46 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): 07/13/2024- Extraction Cataract - Phacoemulsification And Lens [...] compresses Assessment & Plan (10/12/2024 12:46 PM RESEARCH PHYSICIAN): Post op day 1s/p Extraction Cataract - [...] concerns Assessment & Plan (09/21/2024 11:09 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): Status-post Extraction Cataract - Phacoemulsification And Lens Implant Left Eye - Left 07/13/2024 Pt notes vision may be sl better than prior to surgery, but feels not clear because of right eye (OD). BCVA 20/20. Well healed. Ok to proceed with cataract extraction (CE) right eye (OD). 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 Followed at by Dr Herndon Pain in both lower extremities 04/20/2021 Overview (04/20/2021): Added automatically from request for surgery [id number] Diastolic dysfunction without heart failure 10/10 ISMAEL [...] (09/27/2020): Added automatically from request for surgery [id number] Cancer of brain treated with radiation therapy [...] of shoulder 07/02/2012 Osteoarthritis of knee 11/23/2010 Resolved Problems Problem Noted Date Diagnosed Date [...] time Assessment & Plan (09/21/2024 11:08 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): Patient complains of significant symptoms and problems [...] view Assessment & Plan (07/24/2024 10:27 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): Likely vis sig, but want patient to [...] (04/19/2022): Added automatically from request for surgery [id number] Encounters Date Type Department Care Team Description 04/01/2025 8:16 AM CDT - 04/01/2025 11:59 PM CDT Hospital Encounter [facility] [address] [place] [address] [facility] [address] [place] [address] Mara Greco NP Other inflammatory polyneuropathies (Primary Dx); Pain in both lower extremities; Vasculitic neuropathy Discharge Disposition: Discharge to home or self care 03/26/2025 Telephone [facility] [address] [place] [address] Jules Sheffield MD PMC Preprocedure 03/23/2025 Telephone [facility] Scheduling [address] [place] [address] Susana Sena 03/22/2025 Results Follow-Up [facility] Ophthalmology [address] [facility] [place] 6th [place] [id number] Rhea Barnard MD MRI Brain Incl Orbits W WO Contrast 03/21/2025 3:15 PM CDT - 03/21/2025 11:59 PM CDT Hospital Encounter [facility] [address] [address] [place] [address] History of cerebral aneurysm; History of arteriovenous malformation (AVM) Discharge Disposition: Discharge to home or self care 03/21/2025 3:15 PM CDT - 03/21/2025 11:59 PM CDT Hospital Encounter [facility] [address] [place] [address] History of cerebral aneurysm; History of arteriovenous malformation (AVM) Discharge Disposition: Discharge to home or self care 03/10/2025 11:30 AM CDT Office Visit [facility] [address] [facility] 2[address], [address] [place] [address] Alanis Ospina, OD PVD (posterior vitreous detachment), right eye (Primary Dx); Pseudophakia of both eyes; Type 2 diabetes mellitus with hyperglycemia, with long-term current use of insulin ([facility]) 03/03/2025 2:00 PM CDT Office Visit [facility] [address] [facility] [address] [facility], [address] [place] [address] Rhea Barnard MD Episodes of abnormal sensation of eye (Primary Dx); History of cerebral aneurysm; History of arteriovenous malformation (AVM) 03/03/2025 7:01 AM CDT - 03/03/2025 11:59 PM CDT Hospital Encounter [facility] [address] [place] [address] Advanced [facility] [address] [place] [address] Jules Sheffield MD Vasculitic neuropathy (Primary Dx); Pain in both lower extremities Discharge Disposition: Discharge to home or self care 03/01/2025 Telephone [facility] [address] [place] [address] Jules Sheffiled MD [facility] Preprocedure 02/25/2025 4:00 PM CDT Office Visit [facility] Neuro Muscle [address] [facility] 6th [place] [address] Maryann Najera MD Immune-mediated neuropathy (Primary Dx) 02/17/2025 11:20 AM CDT Office Visit [facility] Endocrinology Metabolism and Lipid [address] [facility] [address] [place] [address] Ekta Marin MD Type 2 diabetes mellitus with diabetic neuropathy, unspecified whether shelter insulin use (HCC) (Primary Dx); Morbid (severe) obesity due to excess calories (E66.01); Body mass index [BMI] 35.0-35.9, adult (Z68.35) 01/27/2025 10:30 AM CDT Office Visit [facility] [address] [facility] [facility] [address] [place] [address] Alanis Ospina, OD PVD (posterior vitreous detachment), right eye (Primary Dx); Pseudophakia of both eyes 01/25/2025 12:11 PM CDT - 01/25/2025 11:59 PM CDT Hospital Encounter [facility] [address] [place] [address] [facility] [address] [place] [address] Elisha Umaña MD PhD Other inflammatory polyneuropathies (Primary Dx); Chronic use of opiate for therapeutic purpose; Vasculitic neuropathy Discharge Disposition: Discharge to home or self care 01/20/2025 Telephone [facility] [address] [place] [address] for [facility] Medicine [address] [place] [address] Elisha Umaña MD PhD PMC Preprocedure 01/18/2025 Telephone [facility] [address] [place] [address] [facility] [address] [place] [address] Jules Sheffield MD lido appointment from Last 3 Months Immunizations Immunization Administration Dates Next Due Moderna SARS-CoV-2 Monovalent Vaccination (12+ Y RS) 12/10/2020,11/13/2020 ZOSTER Recombinant 10/09/2019,06/17/2019 Surgical History Surgery Date Site/Laterality Comments KNEE SURGERY 09/09/1977 - 09/08/1978 Right cartlidge removal SHOULDER SURGERY 09/09/2013 - 09/08/2014 Left rotator cuff repair BACK SURGERY 09/09/1991 - 10/09/1991 not a fusion TOTAL KNEE ARTHROPLASTY 10/31/2020 Right COLONOSCOPY FOOT SURGERY 09/09/1984 - 09/08/1985 Left tendon release BLEPHAROPTOSIS REPAIR 06/11/2022 Left x2 procedures KNEE SURGERY 09/09/1975 - 10/09/1975 Left cartlidge removal APPENDECTOMY Oct 23 1968 EYE SURGERY 09/09/2014 - 09/08/2015 Left scraped something off of eye CERVICAL FUSION 01/07/2017 - 02/06/2017 [id number] LITHOTRIPSY BLEPHAROPTOSIS REPAIR 08/06/2023 Right BLADDER SURGERY 12/09/2023 - 01/07/2024 tumors BIOPSY 05/02/2021 Nerve and muscle CERVICAL SPINE SURGERY 10/06/2018 CERVICAL SPINE SURGERY 05/09/2016 CATARACT EXTRACTION W/ INTRAOCULAR LENS IMPLANT 07/13/2024 CE/IOL; CCA0T0 of power 19.5D; AIM: PLANO (will have cyl) SPINAL FUSION Sep 2018 VASECTOMY December 1983 ROTATOR CUFF REPAIR Nov 2016 JOINT REPLACEMENT Oct 2020 BRAIN SURGERY Radiation F/AVM & aneurysm's KNEE ARTHROSCOPY W/ LATERAL RELEASE February 2001, Jun 2002, Jun 2003, Jun 2004,Jun 2005, PLANTAR FASCIA RELEASE Apr 2000 Medical History Medical History Date Comments Kidney stone Peripheral neuropathy Sleep apnea uses BiPAP Diabetes mellitus (HCC) steroid induced Neck pain Leg pain, bilateral Chronic pain disorder Left ventricular hypertrophy 04/23/2023 Hypertrophic cardiomyopathy (HCC) 05/2023 Cataract Joint pain Low back pain April 2020 Low back pain April 2020 Neck pain Bilateral leg pain Bilateral foot pain Fatigue Inflammation of arteries Oct 2018 Arthritis Oct 2020 Autoimmune disease January 2021 Family History Medical History Relation Name Comments Cancer Brother Pablo Antunez Family history of malignant neoplasm - (Added by TW Conv) Arthritis Father Dave Antunez Arthritis Mother Kezia Tulio Cancer Mother Kezia Antunez Family history of malignant neoplasm - (Added by TW Conv) Heart disease Sister 1 Cancer Sister 2 Shivani Cowan Heart disease Sister 2 Shivani Cowan Malig Hyperthermia Neg Hx Pseudochol deficiency Neg Hx Relation Name Status Comments Brother Pablo Antunez Father Dave Tulio Mother Kezia Tulio Sister 1 Sister 2 Shivani Cowan Social History Tobacco Use Types Packs/Day Years [...] on file Legal Sex Male 2:51 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 Gender Identity Male 03/14/2021 11:16 AM CDT Sexual Orientation Straight 01/13/2019 8: 33 PM CDT 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 on file Not on file Obstetrics History Last Filed Vital Signs Vital Sign Reading [...] Mass Index 35.59 04/01/2025 8:34 AM CDT Plan of Treatment Health Maintenance Due Date Last Done Comments Colon Cancer Screening-Colonoscopy 1955 Depression Screening 1955 DTaP/Tdap/Td Vaccine (1 - Tdap) 1964 Hepatitis B Screening 1971 Pneumococcal vaccine 65+ (1 of 2 - PCV) 1972 Well Visit 65+ 2018 Covid-19 Vaccine (2023-2 5 season) 2024 07/01/2021, 12/10/2020, 11/13/2020 Influenza Vaccine (#1) 2025 07/08/2023 Albumin Creatinine Ratio, Urine 06/01/2025 Foot Exam 06/01/2025 06/01/2024, 02/13/2024 Lipid Panel 06/01/2025 06/01/2024, 04/23/2023 Hemoglobin A1C 08/19/2025 02/17/2025, 07/11, 04/20/2024, Additional history exists Fall Risk Assessment 10/12/2025 10/12/2024, 05/26/2024, 05/01/2024, Additional history exists eGFR 10/27/2025 10/27/2024, 05/11, 04/20/2024, Additional history exists Dilated Eye Exam 03/10/2026 03/10/2025, , 10/30/2024, Additional history exists Hepatitis C Screening Completed 09/22/2018 Zoster Vaccine Completed 10/09/2019, 06/17/2019 Goals Goal Patient Goal Type Associated Problems Recent Progress Patient-Stated? Author CCM Chronic Pain Care Plan Chronic Care Management No change(04/01 8:37 AM CDT) No Julia Joseph, RN Note: Problem: Chronic Pain Goals: 1. Minimize further functional decline 2. Maximize quality of life 3. Control pain Strategies: - Activity/exercise program recommendation - Conservative stepwise pain medicine strategy with multi-disciplinary approach - Recommend healthy lifestyle strategies and compensatory methods as needed Reduce the likelihood of falling Lifestyle Josee Larkin, RN Note: Below are four things you can [...] on stairs Contact your local community or [facility] for information on exercise, fall prevention programs, or options for improving home safety. Medical Devices Implanted Type Area Station Cashier Device Identifier Shelf Expiration Date Model / Serial / Lot [employer] Cna0t0.080 Lens Iol Cna0t0.080 [facility] - [id number] - [id number] Implanted:Qty: 1 on 07/13/2024 by Shereen Najera MD at [facility] Lens Left: Eye [employer] 06/18/2027 CNA0T0.0 80 / [id number] / Description:19.5 D [employer] Lens Iol Cca0t0.205 [facility] Autonom Cca0t0.205 - [id number] - [id number] Implanted:Qty: 1 on 10/12/2024 by Shereen Najera MD at [facility] Lens Right: Eye [employer] 08/17/2026 CCA0T0.2 05 / [id number] / [employer] 5517-F-802 Triathlon Cruciate Retain Bead Knee Right 8 Component Femoral Pa - S0 - [id number] Implanted:Qty: 1 on 10/31/2020 by Aly Blankenship MD at [facility] Other - see comments Right: Knee [employer] [id number] 06/17/2025 5517-F-8 02 / 0 / [id number] Description:Femur [employer] 5536-B-800 Triathlon Tritanium Knee 8 Baseplate Tibial - S0 - [id number] Implanted:Qty: 1 on 10/31/2020 by Aly Blankenship MD at [facility] Other - see comments Right: Knee [employer] [id number] 07/02/2025 5536-B-8 00 / 0 / [id number] Description:Tibial component [employer] 7069-K-538-[id number] Insert Tibial Triathlon 8 H9mm Knee Bearing Condylar Stabilize Sterile - S0 - [id number] Implanted:Qty: 1 on 10/31/2020 by Aly Blankenship MD at [facility] Other - see comments Right: Knee [employer] [id number] 06/21/2025 5531-G-8 09-E / 0 / [id number] Description:Tibial insert [employer] [id number] Advance 3-4mm 50mm Allograft Graft Nerve Sterile - [id number] Implanted:Qty: 1 on 05/02/2021 by Janet Pedroza MD at [facility] Left: Leg [employer] 11/07/2023 [id number] / / [id number] Procedures Procedure Name Priority Date/Time Associated Diagnosis Comments MRI BRAIN INCL ORBITS W WO CONTRAST Schedule Routine, Read Routine (OP Routine) 03/21/2025 4:59 PM CDT History of cerebral aneurysm History of arteriovenous malformation (AVM) MRA HEAD W WO CONTRAST Schedule Routine, Read Routine (OP Routine) 03/21/2025 4:56 PM CDT History of cerebral aneurysm History of arteriovenous malformation (AVM) POCT HEMOGLOBIN A1C Routine 02/17/2025 11:31 AM CDT Type 2 diabetes mellitus with diabetic neuropathy, unspecified whether terminal gauger supervisor insulin use (HCC) COMPREHENSIVE METABOLIC PANEL Routine 10/27/2024 3:30 PM RESEARCH PHYSICIAN Immune Vasculitic neuropathy (CMS/HCC) (HCC) LIPID PANEL Routine 06/01/2024 11:55 AM CDT Type 2 diabetes mellitus with hyperglycemia, with long-term current use of insulin (HCC) ALBUMIN CREATININE RATIO, URINE Routine 06/01/2024 11:55 AM CDT Type 2 diabetes mellitus with hyperglycemia, with long-term current use of insulin (HCC) HEPATITIS PANEL, ACUTE Routine 09/22/2018 12:34 PM RESEARCH PHYSICIAN from Last 3 Months or Most Recently Relevant to Health Maintenance Results * MRI Brain Incl Orbits W WO Contrast (03/21/2025 4:59 PM CDT) Anatomical Region Laterality Modality Head and Neck N/A Magnetic Resonan ce 03/22/2025 10:4 5 AM CDT Impressions 03/22/2025 12:29 PM CDT 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 The complex aneurysm is grossly unchanged in size and morphology given differences in technique compared to a outside hospital CTA performed on 11/15/2022. 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 This appears to be associated with atherosclerotic plaque. Attention on surveillance follow-ups. No other aneurysm. No acute intracranial abnormality. Normal orbits. Dictated by: José Antonio Melvin M.D. The radiology attending physician has personally reviewed this study, and had reviewed and/or edited this written report and agrees with it. Electronically signed by: Bryant Marlow MD Narrative 03/22/2025 12:29 PM CDT EXAMINATION: 1. Magnetic resonance imaging (MRI) of the brain, brainstem and orbits without and with contrast 2. Magnetic resonance angiography (MRA) of the llayyu-lv-Bzkopr without and with contrast HISTORY: History of cerebral aneurysms and AVM, now having eye fluttering sensation TECHNIQUE: Multiplanar multi-weighted MRI of the brain, brainstem and orbits was performed without and with intravenous contrast using the general brain protocol. Magnetic resonance angiography of the showli-uh-Dsfcjt was performed using a separate data acquisition with a non-contrast bafe-ie-lwtlku technique and a post-contrast technique to produce axial thin-slice source images. These images were then used to generate maximum intensity projection (MIP) images. Contrast information: 20 mL Gadoterate Meglumine IV COMPARISON: MRI brain 09/24/2019, 11/15/2022 CTA head and neck FINDINGS: MRI: Bilateral ocular lens replacements. Orbits are otherwise normal. Intraconal and extraconal contents are normal. Extraocular muscles and the lacrimal glands are normal. No abnormal signal is seen in the visualized optic nerves. No abnormal enhancement. The scalp and calvarium are normal. The superior sagittal sinus demonstrates normal venous flow. The corpus callosum is normal in shape and signal intensity. The posterior fossa is unremarkable. The pituitary and sella are normal. The brainstem and craniocervical junction are unremarkable. There is a small region of encephalomalacia in within the right paracentral lobule at the skull vertex, with a small quantity of old hemosiderin deposition. There is mild age-appropriate global cerebral parenchymal atrophy and corresponding proportional enlargement of CSF spaces. Small focal region of apparent cortical DWI hyperintensity without ADC correlate on series 9 image 60, underlying a region of susceptibility artifact along the inner table near the lateral coronal suture seen on series 15 image 65. This most likely represents artifact. Similar susceptibility artifact is seen on the right side. A similar crescent-shaped susceptibility artifact along the left posterior lateral parietal bone inner table. These artifacts have no correlate on the [address] Diffusion weighted images reveal no other hyperintensities to suggest acute cerebral infarction. The paranasal sinuses are normal. The visualized portions of the mastoids are unremarkable. There is no abnormal brain parenchymal contrast enhancement. Cervical spine anterior and posterior fusion instrumentation incompletely visualized. 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 On vzzg-ra-zkmzpc images and dynamic contrast-enhanced images, flow within the aneurysm sac appears to be slow, likely from distal stenosis. The internal carotid arteries in the head are of normal caliber. There are no areas of vascular narrowing. The middle cerebral arteries and branches are normal. . The vertebral arteries are codominant. Short segment of left vertebral artery V4 ectasia proximal to PICA measuring up to 6.4 mm with visible intimal plaque (brain MRI, series 19 image 4) is grossly unchanged given differences in technique compared to 2022 CTA. The basilar artery is normal. The posterior cerebral arteries are normal. [place] is complete with large caliber anterior communicator, small bilateral posterior communicators and normal caliber bilateral A1 and P1 segments. Apparent hyperdensity on eknh-li-xtvwqp noncontrast MRA images in the tortuous left vein of Juliano appears to be artifact on dynamic contrast-enhanced images. The visualized cerebral venous sinuses are otherwise unremarkable. 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 The left internal jugular vein is not visualized. There is apparent stenosis of the right internal jugular vein just inferior to the skull base in the expected region of the stylohyoid ligament, possibly positional. The vein is otherwise patent and large caliber. Procedure Note Bryant Marlow MD PhD - 03/22/2025 EXAMINATION: 1. Magnetic resonance imaging (MRI) of the brain, brainstem and orbits without and with contrast 2. Magnetic resonance angiography (MRA) of the ulgesz-mi-Gcyvqq without and with contrast HISTORY: History of cerebral aneurysms and AVM, now having eye fluttering sensation TECHNIQUE: Multiplanar multi-weighted MRI of the brain, brainstem and orbits was performed without and with intravenous contrast using the general brain protocol. Magnetic resonance angiography of the okceof-jw-Pdspbx was performed using a separate data acquisition with a non-contrast njaz-bw-wklcwv technique and a post-contrast technique to produce axial thin-slice source images. These images were then used to generate maximum intensity projection (MIP) images. Contrast information: 20 mL Gadoterate Meglumine IV COMPARISON: MRI brain 09/24/2019, 11/15/2022 CTA head and neck FINDINGS: MRI: Bilateral ocular lens replacements. Orbits are otherwise normal. Intraconal and extraconal contents are normal. Extraocular muscles and the lacrimal glands are normal. No abnormal signal is seen in the visualized optic nerves. No abnormal enhancement. The scalp and calvarium are normal. The superior sagittal sinus demonstrates normal venous flow. The corpus callosum is normal in shape and signal intensity. The posterior fossa is unremarkable. The pituitary and sella are normal. The brainstem and craniocervical junction are unremarkable. There is a small region of encephalomalacia in within the right paracentral lobule at the skull vertex, with a small quantity of old hemosiderin deposition. There is mild age-appropriate global cerebral parenchymal atrophy and corresponding proportional enlargement of CSF spaces. Small focal region of apparent cortical DWI hyperintensity without ADC correlate on series 9 image 60, underlying a region of susceptibility artifact along the inner table near the lateral coronal suture seen on series 15 image 65. This most likely represents artifact. Similar susceptibility artifact is seen on the right side. A similar crescent-shaped susceptibility artifact along the left posterior lateral parietal bone inner table. These artifacts have no correlate on the [address] Diffusion weighted images reveal no other hyperintensities to suggest acute cerebral infarction. The paranasal sinuses are normal. The visualized portions of the mastoids are unremarkable. There is no abnormal brain parenchymal contrast enhancement. Cervical spine anterior and posterior fusion instrumentation incompletely visualized. 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 On ofmb-ee-uorjkv images and dynamic contrast-enhanced images, flow within the aneurysm sac appears to be slow, likely from distal stenosis. The internal carotid arteries in the head are of normal caliber. There are no areas of vascular narrowing. The middle cerebral arteries and branches are normal. . The vertebral arteries are codominant. Short segment of left vertebral artery V4 ectasia proximal to PICA measuring up to 6.4 mm with visible intimal plaque (brain MRI, series 19 image 4) is grossly unchanged given differences in technique compared to 2022 CTA. The basilar artery is normal. The posterior cerebral arteries are normal. [place] is complete with large caliber anterior communicator, small bilateral posterior communicators and normal caliber bilateral A1 and P1 segments. Apparent hyperdensity on jbxg-bg-wumecw noncontrast MRA images in the tortuous left vein of Juliano appears to be artifact on dynamic contrast-enhanced images. The visualized cerebral venous sinuses are otherwise unremarkable. 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 The left internal jugular vein is not visualized. There is apparent stenosis of the right internal jugular vein just inferior to the skull base in the expected region of the stylohyoid ligament, possibly positional. The vein is otherwise patent and large caliber. 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 The complex aneurysm is grossly unchanged in size and morphology given differences in technique compared to a outside hospital CTA performed on 11/15/2022. 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 This appears to be associated with atherosclerotic plaque. Attention on surveillance follow-ups. No other aneurysm. No acute intracranial abnormality. Normal orbits. Dictated by: José Antonio Melvin M.D. The radiology attending physician has personally reviewed this study, and had reviewed and/or edited this written report and agrees with it. 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 The complex aneurysm is grossly unchanged in size and morphology given differences in technique compared to a outside hospital CTA performed on 11/15/2022. 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 This appears to be associated with atherosclerotic plaque. Attention on surveillance follow-ups. No other aneurysm. No acute intracranial abnormality. Normal orbits. Dictated by: José Antonio Melvin M.D. The radiology attending physician has personally reviewed this study, and had reviewed and/or edited this written report and agrees with it. Electronically signed by: Bryant Marlow MD Narrative 03/22/2025 12:29 PM CDT EXAMINATION: 1. Magnetic resonance imaging (MRI) of the brain, brainstem and orbits without and with contrast 2. Magnetic resonance angiography (MRA) of the ewxdkg-ek-Eqzksq without and with contrast HISTORY: History of cerebral aneurysms and AVM, now having eye fluttering sensation TECHNIQUE: Multiplanar multi-weighted MRI of the brain, brainstem and orbits was performed without and with intravenous contrast using the general brain protocol. Magnetic resonance angiography of the tndqjm-qg-Hjaryj was performed using a separate data acquisition with a non-contrast atra-vh-wdqqjf technique and a post-contrast technique to produce axial thin-slice source images. These images were then used to generate maximum intensity projection (MIP) images. Contrast information: 20 mL Gadoterate Meglumine IV COMPARISON: MRI brain 09/24/2019, 11/15/2022 CTA head and neck FINDINGS: MRI: Bilateral ocular lens replacements. Orbits are otherwise normal. Intraconal and extraconal contents are normal. Extraocular muscles and the lacrimal glands are normal. No abnormal signal is seen in the visualized optic nerves. No abnormal enhancement. The scalp and calvarium are normal. The superior sagittal sinus demonstrates normal venous flow. The corpus callosum is normal in shape and signal intensity. The posterior fossa is unremarkable. The pituitary and sella are normal. The brainstem and craniocervical junction are unremarkable. There is a small region of encephalomalacia in within the right paracentral lobule at the skull vertex, with a small quantity of old hemosiderin deposition. There is mild age-appropriate global cerebral parenchymal atrophy and corresponding proportional enlargement of CSF spaces. Small focal region of apparent cortical DWI hyperintensity without ADC correlate on series 9 image 60, underlying a region of susceptibility artifact along the inner table near the lateral coronal suture seen on series 15 image 65. This most likely represents artifact. Similar susceptibility artifact is seen on the right side. A similar crescent-shaped susceptibility artifact along the left posterior lateral parietal bone inner table. These artifacts have no correlate on the [address] Diffusion weighted images reveal no other hyperintensities to suggest acute cerebral infarction. The paranasal sinuses are normal. The visualized portions of the mastoids are unremarkable. There is no abnormal brain parenchymal contrast enhancement. Cervical spine anterior and posterior fusion instrumentation incompletely visualized. 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 On jmry-kg-ifmacr images and dynamic contrast-enhanced images, flow within the aneurysm sac appears to be slow, likely from distal stenosis. The internal carotid arteries in the head are of normal caliber. There are no areas of vascular narrowing. The middle cerebral arteries and branches are normal. . The vertebral arteries are codominant. Short segment of left vertebral artery V4 ectasia proximal to PICA measuring up to 6.4 mm with visible intimal plaque (brain MRI, series 19 image 4) is grossly unchanged given differences in technique compared to 2023 CTA. The basilar artery is normal. The posterior cerebral arteries are normal. [place] is complete with large caliber anterior communicator, small bilateral posterior communicators and normal caliber bilateral A1 and P1 segments. Apparent hyperdensity on kety-xa-decxpl noncontrast MRA images in the tortuous left vein of [place] appears to be artifact on dynamic contrast-enhanced images. The visualized cerebral venous sinuses are otherwise unremarkable. 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 The left internal jugular vein is not visualized. There is apparent stenosis of the right internal jugular vein just inferior to the skull base in the expected region of the stylohyoid ligament, possibly positional. The vein is otherwise patent and large caliber. Procedure Note Bryant Marlow MD PhD - 03/22/2025 EXAMINATION: 1. Magnetic resonance imaging (MRI) of the brain, brainstem and orbits without and with contrast 2. Magnetic resonance angiography (MRA) of the qwepuj-ql-Jndmtn without and with contrast HISTORY: History of cerebral aneurysms and AVM, now having eye fluttering sensation TECHNIQUE: Multiplanar multi-weighted MRI of the brain, brainstem and orbits was performed without and with intravenous contrast using the general brain protocol. Magnetic resonance angiography of the jnwzwg-xt-Aeeepy was performed using a separate data acquisition with a non-contrast kzmv-pv-ryouhv technique and a post-contrast technique to produce axial thin-slice source images. These images were then used to generate maximum intensity projection (MIP) images. Contrast information: 20 mL Gadoterate Meglumine IV COMPARISON: MRI brain 09/24/2019, 11/15/2022 CTA head and neck FINDINGS: MRI: Bilateral ocular lens replacements. Orbits are otherwise normal. Intraconal and extraconal contents are normal. Extraocular muscles and the lacrimal glands are normal. No abnormal signal is seen in the visualized optic nerves. No abnormal enhancement. The scalp and calvarium are normal. The superior sagittal sinus demonstrates normal venous flow. The corpus callosum is normal in shape and signal intensity. The posterior fossa is unremarkable. The pituitary and sella are normal. The brainstem and craniocervical junction are unremarkable. There is a small region of encephalomalacia in within the right paracentral lobule at the skull vertex, with a small quantity of old hemosiderin deposition. There is mild age-appropriate global cerebral parenchymal atrophy and corresponding proportional enlargement of CSF spaces. Small focal region of apparent cortical DWI hyperintensity without ADC correlate on series 9 image 60, underlying a region of susceptibility artifact along the inner table near the lateral coronal suture seen on series 15 image 65. This most likely represents artifact. Similar susceptibility artifact is seen on the right side. A similar crescent-shaped susceptibility artifact along the left posterior lateral parietal bone inner table. These artifacts have no correlate on the [address] Diffusion weighted images reveal no other hyperintensities to suggest acute cerebral infarction. The paranasal sinuses are normal. The visualized portions of the mastoids are unremarkable. There is no abnormal brain parenchymal contrast enhancement. Cervical spine anterior and posterior fusion instrumentation incompletely visualized. 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 On imbm-zh-qiynjb images and dynamic contrast-enhanced images, flow within the aneurysm sac appears to be slow, likely from distal stenosis. The internal carotid arteries in the head are of normal caliber. There are no areas of vascular narrowing. The middle cerebral arteries and branches are normal. . The vertebral arteries are codominant. Short segment of left vertebral artery V4 ectasia proximal to PICA measuring up to 6.4 mm with visible intimal plaque (brain MRI, series 19 image 4) is grossly unchanged given differences in technique compared to 2022 CTA. The basilar artery is normal. The posterior cerebral arteries are normal. [place] is complete with large caliber anterior communicator, small bilateral posterior communicators and normal caliber bilateral A1 and P1 segments. Apparent hyperdensity on wxig-uz-llpfcf noncontrast MRA images in the tortuous left vein of [place] appears to be artifact on dynamic contrast-enhanced images. The visualized cerebral venous sinuses are otherwise unremarkable. 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 The left internal jugular vein is not visualized. There is apparent stenosis of the right internal jugular vein just inferior to the skull base in the expected region of the stylohyoid ligament, possibly positional. The vein is otherwise patent and large caliber. 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 The complex aneurysm is grossly unchanged in size and morphology given differences in technique compared to a outside hospital CTA performed on 11/15/2022. 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 This appears to be associated with atherosclerotic plaque. Attention on surveillance follow-ups. No other aneurysm. No acute intracranial abnormality. Normal orbits. Dictated by: José Antonio Melvin M.D. The radiology attending physician has personally reviewed this study, and had reviewed and/or edited this written report and agrees with it. Electronically signed by: Bryant Marlow MD Rhea Barnard MD IMG MRI PROCEDURES Final Re sult * (ABNORMAL) POCT hemoglobin A1c (02/17/2025 11:31 AM CDT) [facility] Hemoglobin A1C, POC 5.8(A) 4.0 - 5.6 % Blood 02/17/2025 11:3 1 AM CDT Ekta Marin MD POINT OF CARE TEST ORDERABLES Final Result * Comprehensive metabolic panel (10/27/2024 3:30 PM RESEARCH PHYSICIAN) [facility] Total Protein 6.6 6.1 - 8.4 g/dL [facility] Albumin 4.1 3.5 - 5.2 g/dL [facility] Calcium 9.5 8.6 - 10.3 mg/dL [facility] BUN 22 7 - 23 mg/dL [facility] Total Bilirubin 0.65 0.20 - 1.40 mg/dL [facility] Alk Phos, Total 63 35 - 129 IU/L [facility] AST (SGOT) 18 11 - 47 IU/L [facility] ALT (SGPT) 19 6 - 53 IU/L [facility] Creatinine 0.94 0.70 - 1.30 mg/dL [facility] Sodium 141 135 - 145 mmol/L [facility] Potassium 4.2 3.3 - 5.1 mmol/L [facility] Chloride 102 95 - 107 mmol/L [facility] CO2 Content 29 21 - 29 mmol/L [facility] Glucose 85 64 - 99 mg/dL [facility] Comment: NONFASTING GLUCOSE RANGE = 64-199 mg/dL FASTING GLUCOSE 64 - 99 = NORMAL FASTING GLUCOSE 100 - 125 = IMPAIRED FASTING GLUCOSE FASTING GLUCOSE >=126 = PROVISIONAL DIAGNOSIS OF DIABETES eGFR 86.7 >60.0 mL/min/1.7 3 m2 [facility] Blood 10/27/2024 3:30 PM RESEARCH PHYSICIAN 10/27/2024 4:24 PM RESEARCH PHYSICIAN Dane Rhoades MD PhD LAB BLOOD ORDERABLE S Final Result Performing Organization Address City/[facility]/ZIP Co de Phone Number [facility] * Albumin Creatinine Ratio, Urine (06/01/2024 11:55 AM CDT) Albumin Ur <12.0 mg/L Comment: Interpretive Data No reference range established. Current interpretive data was last revised 2019. Creatinine Ur 49.0 mg/dL [facility] Comment: Interpretive Data No reference range established. Current interpretive data was last revised 2019. Albumin Creatinine Ratio, Ur <24 1 - 29 mg/g [facility] Urine 06/01/2024 11:5 5 AM CDT 06/01/2024 12:40 PM CDT us Anne Moran [employer] LAB URINE ORDERABLES Alee l Result [facility] Department [place] [address] * (ABNORMAL) Lipid panel (06/01/2024 11:55 AM CDT) Cholesterol 164 30 - 199 mg/dL Comment: Interpretive Data Ages < or = 19 years Acceptable: <170 mg/dL Borderline high: 170-199 mg/dL High: >or= 200 mg/dL Ages > or = 20 years Desirable: <200 mg/dL Borderline high: 200-239 mg/dL High: >or= 240 mg/dL Literature References: 1. Expert Panel on Integrated Guidelines for Cardiovascular Health and Risk Reduction in Children and Adolescents. Pediatrics 2011;128:S213 2. NCEP Expert Panel. Circulation 2004;110:227 Current Interpretive Data was last revised on 2018. Triglycerides 162(H) <=149 mg/dL [facility] Comment: Interpretive Data Ages < or = 9 years Acceptable: <75 mg/dL Borderline high: 75-99 mg/dL High: >or= 100 mg/dL Ages 10 to 20 years Acceptable: <90 mg/dL Borderline high: 90-129 mg/dL High: >or= 130 mg/dL Ages > or = 20 years Desirable: <150 mg/dL Borderline high: 150-199 mg/dL High: 200-499 mg/dL Very high: >or= 499 mg/dL Literature References: 1. Expert Panel on Integrated Guidelines for Cardiovascular Health and Risk Reduction in Children and Adolescents. Pediatrics 2011;128:S213 2. NCEP Expert Panel. Circulation 2004;110:227 Current Interpretive Data was last revised on 2018. HDL 39(L) >=40 mg/dL [facility] Comment: Interpretive Data Ages < or = 19 years Acceptable: >45 mg/dL Borderline low: 40-45 mg/dL Low: <40 mg/dL Ages > or = 20 years Desirable: >or= 60 mg/dL Low: <40 mg/dL Literature References: 1. Expert Panel on Integrated Guidelines for Cardiovascular Health and Risk Reduction in Children and Adolescents. Pediatrics 2011;128:S213 2. NCEP Expert Panel. Circulation 2004;110:227 Current Interpretive Data was last revised on 2018. LDL, calculated 97 <=129 mg/dL [facility] Comment: Interpretive Data Ages < or = 19 years Acceptable: <110 mg/dL Borderline high: 110-129 mg/dL High: >or= 130 mg/dL Ages > or = 20 years Optimal: <100 mg/dL Near optimal: 100-129 mg/dL Borderline high: 130-159 mg/dL High: >160 mg/dL Calculated using the Ghosh LDL-C estimating equation. This equation was implemented on 2024. Prior to this date LDL-C was estimated using the Friedewald equation. Literature References: 1. Expert Panel on Integrated Guidelines for Cardiovascular Health and Risk Reduction in Children and Adolescents. Pediatrics 2011;128:S213 2. NCEP Expert Panel. Circulation 2004;110:227 3. Augie Harrison et al. PIPE Cardiol. 2020 January 07;5(5):540-548. doi: 10.1001/[email or web address] Current Interpretive Data was last revised on 2024. Non-HDL Cholesterol 125 mg/dL [facility] Comment: Interpretive Data Ages < or = 19 years Acceptable: <120 mg/dL Borderline high: 120-144 mg/dL High: >145 mg/dL Ages > or = 20 years When triglycerides are >200 mg/dL, Non-HDL cholesterol is a secondary target of therapy with treatment goals that are 30 mg/dL greater than the LDL cholesterol target. Literature References: 1. Expert Panel on Integrated Guidelines for Cardiovascular Health and Risk Reduction in Children and Adolescents. Pediatrics 2011;128:S213 2. NCEP Expert Panel. Circulation 2004;110:227 Current Interpretive Data was last revised on 2018. Chol/HDL ratio 4 [facility] Blood 06/01/2024 11:5 5 AM CDT 06/01/2024 12:39 PM CDT Narrative [facility] - 06/01/2024 1:59 PM CDT These lab test should be done fasting. This means do not eat or drink for at least 12 hours prior to getting your blood drawn. Anne Moran NP LAB BLOOD ORDERABLES Alee landaverde Result [facility] Department [place] [address] * Hepatitis panel, acute (09/22/2018 12:34 PM RESEARCH PHYSICIAN) HepBsAg NONREACT NONREACTIVE 09/22/2018 2:24 PM RESEARCH PHYSICIAN [facility] HISTORICAL RESULTS Comment: Carbon BlackrXP using DANA (chemiluminescent immunoassay) technology. NONREACTIVE: IgM antibodies to Hepatitis B Surface antigen not detected. REACTIVE: IgM antibodies to Hepatitis B Surface antigen detected. Reactive results will be confirmed by neutralization testing. HBsAb qn < 3.10 mIU/mL Comment: Siemens CentaurXP using DANA (chemiluminescent immunoassay) technology. 9.99 IU/L or less.....NONREACTIVE: IgM antibodies to Hepatitis B Surface antibody are not detected. 10.00 IU/L or greater..REACTIVE: IgM antibodies to Hepatitis B Surface antibody are detected. Hep B core IgM NONREACT NONREACTIVE 9 2:52 PM RESEARCH PHYSICIAN [facility] HISTORICAL RESULTS Comment: Siemens CentaurXP using DANA (chemiluminescent immunoassay) technology. NONREACTIVE: IgM antibodies to Hepatitis B Core antigen not detected. EQUIVOCAL: IgM antibodies to Hepatitis B Core antigen may or may not be present. Obtain a new specimen and retest. REACTIVE: IgM antibodies to Hepatitis B Core antigen detected. Hep A IgM NONREACT NONREACTIVE Comment: Siemens CentaurXP using DANA (chemiluminescent immunoassay) technology. NONREACTIVE: IgM antibodies to Hepatitis A not detected. This does not exclude possibility of exposure to Hepatitis A or early acute infection. EQUIVOCAL:IgM antibodies to Hepatitis A may or may not be present. Suggest recollection and retest. REACTIVE: Antibodies to Hepatitis A detected. Hep C Ab NONREACT NONREACTIVE 09/22/2018 2:51 PM [facility] Comment: Siemens CentaurXP using DANA (chemiluminescent immunoassay) technology. NONREACTIVE: Antibodies to Hepatitis C not detected. This does not exclude early acute Hepatitis C infection, possibility of exposure to Hepatitis C, antibodies below detection limit, or to lack of antibody reactivity to the antigen used in this assay. EQUIVOCAL: Antibodies to Hepatitis C may or may not be present. Sample to be confirmed by real-time PCR method. REACTIVE: Antibodies to Hepatitis C detected.Sample to be confirmed by real-time PCR method. 09/22/2018 12:3 4 PM RESEARCH PHYSICIAN 09/22/2018 12:51 PM RESEARCH PHYSICIAN [facility] HISTORICAL RESULTS - 09/22/2018 2:51 PM RESEARCH PHYSICIAN FAX RESULTS TO [id number] PTINR WAS ADDED ON 09/23/18 PER Delia INFANTE us Sarath Rascon MD LAB MICROBIOLOGY - GENERAL OR DERABLES Final Result [facility] HISTORICAL RESULTS from Last 3 Months or Most Recently Relevant to Health Maintenance Insurance MEDICARE [facility] MEDICARE [facility] Address: [address] [place] [address] MEDICARE [email or web address] BLESSING MEDICARE SUPPLEMENT MEDICARE [facility] MEDICARE SUPPLEMENT MEDICARE Advance Directives For more information, please contact: [phone] * Full Code (Latest Code Status on File) Date Activated Date Inactivated Comments 11/27/2023 6:26 PM 11/30/2023 6:44 PM * Full Code Date Activated Date Inactivated Comments 10/31/2020 11:16 AM 11/01/2020 3:58 PM 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 Start Date End Date Jacky Jenkins MD [address] [place] [address] PCP - General 01/01/13 Julia Orellana, PT [address] [facility] [address] [place] [address] Physical Therapist Physical Therapy 10/16/20 Garth Fraga MD [address] [place] [address] Municipal Maintenance Worker Dermatology 09/15/21 Maryann Herndon MD [address] [place] [address] Consulting Physician Neurology 04/04/22 Brien Fine MD [address] [place] [address] Protection Manager Transplant 04/23/23 Vilma Yang, RN [address] [facility] [address] [place] [address] Heart Failure Coordinator Implant Polisher 04/23/23 Rina Swenson, OD [address] [place] [address] Optometry 04/29/23 José Antonio Skinner MD [address] [facility] [address] [place] [address] Consulting Physician Urology 12/11/23 Shereen Najera MD [address] [facility]TH[facility], [facility] [address] [place] [address] Ophthalmology 03/03/25 Alanis Ospina, OD [address] [facility], [address] [place] [address] Optometry 03/03/25
--- OUTSIDE RECORDS SUMMARY | 2025-04-02 07:46 | XMS_ITS | Referral Summary ---
Author Organization [facility] Address [address] [place] [address] Care Team Providers Care Hand Clerical Verifier Name Role Phone Jacky Jenkins MD Primary Care Prov ider Julia Orellana PT Unavailable [phone] Grath Fraga MD Unavailable [phone] Maryann Herndon MD Unavailable Brien Fine MD Unavailable Vilma Yang RN Unavailable [phone] Rina Swenson OD Unavailable [phone] José Antonio Skinner MD Unavailable [phone] Shereen Najera MD Unavailable [phone] Alanis Ospina OD Unavailable [phone] Encounters Date Type Department Care Team Description 04/01/2025 8:16 AM CDT - 04/01/2025 11:59 PM CDT Hospital Encounter [facility] [address] [place] [address] [facility] [address] [place] [address] Mara Greco, MARY Other inflammatory polyneuropathies (Primary Dx); Pain in both lower extremities; Vasculitic neuropathy Discharge Disposition: Discharge to home or self care 03/26/2025 Telephone [facility] [address] [place] [address] [place] [address] [place] [address] Jules Sheffield MD PMC Preprocedure 03/23/2025 Telephone [facility] Scheduling [address] [place] [address] Susana Sena 03/22/2025 Results Follow-Up [facility] [address] 6th [place] [phone] Rhea Barnard MD MRI Brain Incl Orbits W WO Contrast 03/21/2025 3:15 PM CDT - 03/21/2025 11:59 PM CDT Hospital Encounter [facility] [address] [place] [address] History of cerebral aneurysm; History of arteriovenous malformation (AVM) Discharge Disposition: Discharge to home or self care 03/21/2025 3:15 PM CDT - 03/21/2025 11:59 PM CDT Hospital Encounter [facility] [address] [place] [address] History of cerebral aneurysm; History of arteriovenous malformation (AVM) Discharge Disposition: Discharge to home or self care 03/10/2025 11:30 AM CDT Office Visit [facility] [address], [address] [place] [address] Alanis Ospina, OD PVD (posterior vitreous detachment), right eye (Primary Dx); Pseudophakia of both eyes; Type 2 diabetes mellitus with hyperglycemia, with long-term current use of insulin (HCC) 03/03/2025 7:01 AM CDT - 03/03/2025 11:59 PM CDT Hospital Encounter [facility] [address] [facility] [address] [place] [address] Jules Sheffield MD Vasculitic neuropathy (Primary Dx); Pain in both lower extremities Discharge Disposition: Discharge to home or self care 03/03/2025 2:00 PM CDT Office Visit [facility] Ophthal[facility] [address] [facility] [address] [facility], [address] [place] [phone] Rhea Barnard MD Episodes of abnormal sensation of eye (Primary Dx); History of cerebral aneurysm; History of arteriovenous malformation (AVM) 03/01/2025 Telephone [facility] [address] [facility] [address] [place] [address] Jules Sheffield MD PMC Preprocedure 02/25/2025 4:00 PM CDT Office Visit [facility] Neuro Muscle [address] [facility] 6th [place] [address] [place] [address] Maryann Herndon MD Immune-mediated neuropathy (Primary Dx) 02/17/2025 11:20 AM CDT Office Visit [facility] Endocrinology Metabolism and Lipid [address] [facility] [address], [address] [place] [phone] Ekta Marin MD Type 2 diabetes mellitus with diabetic neuropathy, unspecified whether termite treater helper insulin use (HCC) (Primary Dx); Morbid (severe) obesity due to excess calories (E66.01); Body mass index [BMI] 35.0-35.9, adult (Z68.35) 01/27/2025 10:30 AM CDT Office Visit [facility] [address] [facility] [address], [address] [place] [phone] Alanis Ospina, OD PVD (posterior vitreous detachment), right eye (Primary Dx); Pseudophakia of both eyes 01/25/2025 12:11 PM CDT - 01/25/2025 11:59 PM CDT Hospital Encounter [facility] [address] [facility] [address] [place] [address] Elisha Umaña MD PhD Other inflammatory polyneuropathies (Primary Dx); Chronic use of opiate for therapeutic purpose; Vasculitic neuropathy Discharge Disposition: Discharge to home or self care 01/20/2025 Telephone [facility] [address] [place] [address] Elisha Umaña MD PhD PMC Preprocedure 01/18/2025 Telephone [facility] [address] [facility] [address] [place] [address] Jules Sheffield MD lido appointment from Last 3 Months Allergies Active Allergy Reactions Criticality Noted Date [...] Active TRUEplus Pen Needle 32 gauge x /32 needleIndicati ons:Type 2 Diabetes nightly 04/08/20 23 [...] diabetes mellitus with diabetic neuropathy, unspecified whether termite treater helper insulin use (HCC) TAKE 1 TABLET(30 MG) [...] diabetes mellitus with diabetic neuropathy, unspecified whether half-way insulin use (HCC) Inject 22 Units under the skin daily 20 mL 3 02/18/20 25 026 Active folic acid (FOLVITE) 1 mg tabletIndicati ons:Idiopathic peripheral neuropathy TAKE 1 TABLET(1 MG) BY MOUTH DAILY 30 tablet 03/02/[address] (CYMBALTA) 30 [...] compresses Assessment & Plan (10/30/2024 9:46 AM COIN COUNTER AND WRAPPER): 07/13/2024- Extraction Cataract - Phacoemulsification And Lens [...] compresses Assessment & Plan (10/12/2024 12:46 PM COIN COUNTER AND WRAPPER): Post op day 1s/p Extraction Cataract - [...] concerns Assessment & Plan (09/21/2024 11:09 AM COIN COUNTER AND WRAPPER): Status-post Extraction Cataract - Phacoemulsification And Lens Implant Left Eye - Left 07/13/2024 Pt notes vision may be sl better than prior to surgery, but feels not clear because of right eye (OD). BCVA 20/20. Well healed. Ok to proceed with cataract extraction (CE) right eye (OD). Assessment & Plan (07/24/2024 10:28 AM COIN COUNTER AND WRAPPER): Status-post Extraction Cataract - Phacoemulsification And Lens [...] visit Assessment & Plan (07/13/2024 3:31 PM COIN COUNTER AND WRAPPER): Post op day 1s/p Extraction Cataract - [...] septal hypertrophy - with respiratory failure TTE May 2023 with crescent shaped LV with max thickness 1.3 cm and strain findings c/w HCM. vLVOT 9 mmHg. Chronic use of opiate for therapeutic purpose Other inflammatory polyneuropathies 07/25/2021 Immune Vasculitic neuropathy (CMS/HCC) 1 Overview (04/23/2023): Vasculitic neuropathy associated with anti-FGFR3 antibodies Followed at by Dr Herndon Pain in both lower extremities 04/20/2021 Overview (04/20/2021): Added automatically from request for surgery [id number] Diastolic dysfunction without heart failure 10/10 ISMAEL [...] (09/27/2020): Added automatically from request for surgery [id number] Cancer of brain treated with radiation therapy [...] time Assessment & Plan (09/21/2024 11:08 AM COIN COUNTER AND WRAPPER): Patient complains of significant symptoms and problems [...] view Assessment & Plan (07/24/2024 10:27 AM COIN COUNTER AND WRAPPER): Likely vis sig, but want patient to [...] repair of ptosis OU Here for cat michelle - not currently in glasses and does not want to have reading glasses if he can avoid it I feel a toric MFIOL would be his best bet - refer to Dr. Najera Assessment & Plan (03/25/2023 11:11 AM CDT): Continue to monitor, pt will discuss surgery when symptomatic Ptosis of left eyelid 04/19/20222023 Overview (04/19/2022): Added automatically from request for surgery [id number] Immunizations Immunization Administration Dates Next Due Moderna SARS-CoV-2 Monovalent Vaccination (12+ Y RS) 12/10/2020,11/13/2020 ZOSTER Recombinant 10/09/2019,06/17/2019 Social History Tobacco Use Types Packs/Day Years [...] on file Legal Sex Male 2:51 AM COIN COUNTER AND WRAPPER Gender Identity Male 03/14/2021 11:16 AM CDT Sexual Orientation Straight 01/13/2019 8: 33 PM CDT 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 Author CCM Chronic Pain Care Plan Chronic Care Management No change(04/01 8:37 AM CDT) Julia Henley, RN Note: Problem: Chronic Pain Goals: 1. [...] on stairs Contact your local community or [facility] for information on exercise, fall prevention programs, or options for improving home safety. Medical Devices Implanted Type Area Poultry Tender Device Identifier Shelf Expiration Date Model / Serial / Lot [employer] Cna0t0.080 Lens Iol Cna0t0.[address] [facility] Autonom - [id number] - [id number] Implanted:Qty: 1 on 07/13/2024 by Shereen Najera MD at [facility] Lens Left: Eye [employer] 06/18/2027 CNA0T0.0 80 / [id number] / Description:19.5 D [employer] Lens Iol Cca0t0.[address] [facility] Autonom Cca0t0.205 - [id number] - [id number] Implanted:Qty: 1 on 10/12/2024 by Shereen Najera MD at [facility] Lens Right: Eye [employer] 08/17/2026 CCA0T0.2 05 / [id number] / [employer] 5517-F-802 Triathlon Cruciate Retain Bead Knee Right 8 Component Femoral Pa - S0 - [id number] Implanted:Qty: 1 on 10/31/2020 by Aly Blankenship MD at [facility] Other - see comments Right: Knee [employer] [id number] 06/17/2025 5517-F-8 02 / 0 / [id number] Description:Femur [employer] 5536-B-800 Triathlon Tritanium Knee 8 Baseplate Tibial - S0 - [id number] Implanted:Qty: 1 on 10/31/2020 by Aly Blankenship MD at [facility] Other - see comments Right: Knee [employer] [id number] 07/02/2025 5536-B-8 00 / 0 / [id number] Description:Tibial component [employer] 6144-R-097-E Insert Tibial Triathlon 8 H9mm Knee Bearing Condylar Stabilize Sterile - S0 - [id number] Implanted:Qty: 1 on 10/31/2020 by Aly Blankenship MD at [facility] Other - see comments Right: Knee [employer] [id number] 06/21/2025 5531-G-8 09-E / 0 / [id number] Description:Tibial insert [employer] [id number] Advance 3-4mm 50mm Allograft Graft Nerve Sterile - [id number] Implanted:Qty: 1 on 05/02/2021 by Janet Pedroza MD at [facility] Left: Leg [employer] 11/07/2023 [id number] / / [id number] Procedures Procedure Name Priority Date/Time Associated Diagnosis [...] diabetes mellitus with diabetic neuropathy, unspecified whether half-way insulin use (HCC) COMPREHENSIVE METABOLIC PANEL Routine 10/27/2024 3:30 PM COIN COUNTER AND WRAPPER Immune Vasculitic neuropathy (CMS/HCC) (HCC) LIPID PANEL Routine 06/01/2024 11:55 AM CDT Type 2 diabetes mellitus with hyperglycemia, with long-term current use of insulin (HCC) ALBUMIN CREATININE RATIO, URINE Routine 06/01/2024 11:55 AM CDT Type 2 diabetes mellitus with hyperglycemia, with long-term current use of insulin (HCC) HEPATITIS PANEL, ACUTE Routine 09/22/2018 12:34 PM COIN COUNTER AND WRAPPER from Last 3 Months or Most Recently [...] and agrees with it. Electronically signed by: MD Freddy Quintanilla 03/22/2025 12:29 PM CDT EXAMINATION: 1. Magnetic resonance imaging (MRI) of the brain, brainstem and orbits without and with contrast 2. Magnetic resonance angiography (MRA) of the ouqqde-ze-Izymjx without and with contrast HISTORY: History of cerebral aneurysms and AVM, now having eye fluttering sensation TECHNIQUE: Multiplanar multi-weighted MRI of the brain, brainstem and orbits was performed without and with intravenous contrast using the general brain protocol. Magnetic resonance angiography of the ltvkzb-qw-Ibbdxb was performed using a separate data acquisition with a non-contrast lvwt-ek-rrgccx technique and a post-contrast technique to produce [...] segment with severe segmental distal stenoses. On yltk-qi-jybxyg images and dynamic contrast-enhanced images, flow within [...] normal. The posterior cerebral arteries are normal. [place] is complete with large caliber anterior communicator, small bilateral posterior communicators and normal caliber bilateral A1 and P1 segments. Apparent hyperdensity on fzlq-cq-sjjebk noncontrast MRA images in the tortuous left [...] 2. Magnetic resonance angiography (MRA) of the hepamk-mw-Ekpqjr without and with contrast HISTORY: History of cerebral aneurysms and AVM, now having eye fluttering sensation TECHNIQUE: Multiplanar multi-weighted MRI of the brain, brainstem and orbits was performed without and with intravenous contrast using the general brain protocol. Magnetic resonance angiography of the wxrtyp-uh-Lupjla was performed using a separate data acquisition with a non-contrast gzqk-mx-amnmlg technique and a post-contrast technique to produce [...] segment with severe segmental distal stenoses. On bsjt-pv-dxejnf images and dynamic contrast-enhanced images, flow within [...] normal. The posterior cerebral arteries are normal. [place] is complete with large caliber anterior communicator, small bilateral posterior communicators and normal caliber bilateral A1 and P1 segments. Apparent hyperdensity on gdgf-so-rxolyf noncontrast MRA images in the tortuous left [...] IMG MRI PROCEDURES Final Re sult * MRA [...] it. Electronically signed by: Bryant Marlow MD [facility] 03/22/2025 12:29 PM CDT EXAMINATION: 1. Magnetic resonance imaging (MRI) of the brain, brainstem and orbits without and with contrast 2. Magnetic resonance angiography (MRA) of the volfts-so-Qnaucs without and with contrast HISTORY: History of cerebral aneurysms and AVM, now having eye fluttering sensation TECHNIQUE: Multiplanar multi-weighted MRI of the brain, brainstem and orbits was performed without and with intravenous contrast using the general brain protocol. Magnetic resonance angiography of the uymzes-ov-Ctuhze was performed using a separate data acquisition with a non-contrast gnhy-ia-atcwxv technique and a post-contrast technique to produce [...] segment with severe segmental distal stenoses. On vfad-bk-zpljuf images and dynamic contrast-enhanced images, flow within [...] normal. The posterior cerebral arteries are normal. [place] is complete with large caliber anterior communicator, small bilateral posterior communicators and normal caliber bilateral A1 and P1 segments. Apparent hyperdensity on tduh-rv-atxpqg noncontrast MRA images in the tortuous left [...] 2. Magnetic resonance angiography (MRA) of the jjzdvu-ex-Qkqilz without and with contrast HISTORY: History of cerebral aneurysms and AVM, now having eye fluttering sensation TECHNIQUE: Multiplanar multi-weighted MRI of the brain, brainstem and orbits was performed without and with intravenous contrast using the general brain protocol. Magnetic resonance angiography of the ffogpr-kd-Yigxnw was performed using a separate data acquisition with a non-contrast yvxs-th-nyedhh technique and a post-contrast technique to produce [...] segment with severe segmental distal stenoses. On aqgx-ms-kpxksl images and dynamic contrast-enhanced images, flow within [...] normal. The posterior cerebral arteries are normal. [place] is complete with large caliber anterior communicator, small bilateral posterior communicators and normal caliber bilateral A1 and P1 segments. Apparent hyperdensity on qesv-cr-dtbshu noncontrast MRA images in the tortuous left [...] POCT hemoglobin A1c (02/17/2025 11:31 AM CDT) [facility] Hemoglobin A1C, POC 5.8(A) 4.0 - 5.6 % Blood 02/17/2025 11:3 1 AM CDT Ekta Marin MD POINT OF CARE TEST ORDERABLES Final Result * Comprehensive metabolic panel (10/27/2024 3:30 PM COIN COUNTER AND WRAPPER) [facility] Total Protein 6.6 6.1 - 8.4 g/dL [facility] Albumin 4.1 3.5 - 5.2 g/dL [facility] Calcium 9.5 8.6 - 10.3 [...] [facility] Blood 10/27/2024 3:30 PM COIN COUNTER AND WRAPPER 10/27/2024 4:24 PM COIN COUNTER AND WRAPPER Dane Rhoades MD PhD LAB BLOOD ORDERABLE S Final Result [facility] * Albumin Creatinine Ratio, Urine (06/01/2024 11:55 AM CDT) Albumin Ur <12.0 mg/L Comment: Interpretive Data No reference range established. Current interpretive data was last revised 2019. Creatinine Ur 49.0 mg/dL [facility] Comment: Interpretive Data No reference range established. Current interpretive data was last revised 2019. Albumin Creatinine Ratio, Ur <24 1 - 29 mg/g [facility] Urine 06/01/2024 11:5 5 AM CDT 06/01/2024 12:40 PM CDT us Anne Moran NP LAB URINE ORDERABLES Alee landaverde Result [facility] [place] [address] * (ABNORMAL) Lipid panel (06/01/2024 11:55 AM [...] on 2018. Triglycerides 162(H) <=149 mg/dL [facility] Comment: Interpretive Data Ages < or = [...] on 2018. HDL 39(L) >=40 mg/dL [facility] Comment: Interpretive Data Ages < or = [...] on 2018. LDL, calculated 97 <=129 mg/dL [facility] Comment: Interpretive Data Ages < or = 19 years Acceptable: <110 mg/dL Borderline high: 110-129 mg/dL High: >or= 130 mg/dL Ages > or = 20 years Optimal: <100 mg/dL Near optimal: 100-129 mg/dL Borderline high: 130-159 mg/dL High: >160 mg/dL Calculated using the Augie LDL-C estimating equation. This equation was implemented on 2024. Prior to this date LDL-C was estimated using the Friedewald equation. Literature References: 1. Expert Panel on Integrated Guidelines for Cardiovascular Health and Risk Reduction in Children and Adolescents. Pediatrics 2011;128:S213 2. NCEP Expert Panel. Circulation 2004;110:227 3. Augie Harrison et al. PIPE Cardiol. 2019January 07;5(5):540-548. doi: 10.1001/jamacardio.2020.0013 Current Interpretive Data was last revised on 2024. Non-HDL Cholesterol 125 mg/dL [facility] Comment: Interpretive Data Ages < or = [...] last revised on 2018. Chol/HDL ratio 4 [facility] Blood 06/01/2024 11:5 5 AM CDT 06/01/2024 12:39 PM CDT [facility]ative [facility] - 06/01/2024 1:59 PM CDT These lab test should be done fasting. This means do not eat or drink for at least 12 hours prior to getting your blood drawn. us [facility] LAB BLOOD ORDERABLES Alee landaverde Result [facility] [place] [address] * Hepatitis panel, acute (09/22/2018 12:34 PM COIN COUNTER AND WRAPPER) HepBsAg NONREACT NONREACTIVE 09/22/2018 2:24 PM COIN COUNTER AND WRAPPER [facility] HISTORICAL RESULTS Comment: Siemens CentaurXP using DANA (chemiluminescent immunoassay) technology. NONREACTIVE: IgM antibodies to Hepatitis B Surface antigen not detected. REACTIVE: IgM antibodies to Hepatitis B Surface antigen detected. Reactive results will be confirmed by neutralization testing. HBsAb qn < 3.10 mIU/mL 09/22/2018 2:13 PM COIN COUNTER AND WRAPPER [facility] HISTORICAL RESULTS Comment: [employer]ens CentaurXP using DANA (chemiluminescent immunoassay) technology. 9.99 IU/L or less.....NONREACTIVE: IgM antibodies to Hepatitis B Surface antibody are not detected. 10.00 IU/L or greater..REACTIVE: IgM antibodies to Hepatitis B Surface antibody are detected. Hep B core IgM NONREACT NONREACTIVE 9 2:52 PM COIN COUNTER AND WRAPPER [facility] HISTORICAL RESULTS Comment: [employer]ens CentaurXP using DANA (chemiluminescent immunoassay) technology. NONREACTIVE: IgM antibodies to Hepatitis B Core antigen not detected. EQUIVOCAL: IgM antibodies to Hepatitis B Core antigen may or may not be present. Obtain a new specimen and retest. REACTIVE: IgM antibodies to Hepatitis B Core antigen detected. Hep A IgM NONREACT NONREACTIVE 09/22/2018 2:53 PM COIN COUNTER AND WRAPPER [facility] HISTORICAL RESULTS Comment: [employer]ens CentaurXP using DANA (chemiluminescent immunoassay) technology. NONREACTIVE: IgM antibodies to Hepatitis A not detected. This does not exclude possibility of exposure to Hepatitis A or early acute infection. EQUIVOCAL:IgM antibodies to Hepatitis A may or may not be present. Suggest recollection and retest. REACTIVE: Antibodies to Hepatitis A detected. Hep C Ab NONREACT NONREACTIVE 09/22/2018 2:51 PM COIN COUNTER AND WRAPPER [employer] HISTORICAL RESULTS Comment: [employer] CentaurXP using DANA [...] real-time PCR method. 09/22/2018 12:3 4 PM COIN COUNTER AND WRAPPER 09/22/2018 12:51 PM COIN COUNTER AND WRAPPER Narrative [facility] HISTORICAL RESULTS - 09/22/2018 2:51 PM COIN COUNTER AND WRAPPER FAX RESULTS TO [id number] PTINR WAS ADDED ON 09/23/18 PER Delia INFANTE us Sarath Rascon MD LAB MICROBIOLOGY - GENERAL OR DERABLES Final Result [facility] HISTORICAL RESULTS from Last 3 Months or Most Recently Relevant to Health Maintenance Insurance MEDICARE [facility] MEDICARE [facility] MEDICARE [employer] MEDICARE SUPPLEMENT MEDICARE [facility] MEDICARE SUPPLEMENT MEDICARE Advance Directives For more information, please contact: [phone] * Full Code (Latest Code Status on File) Date Activated Date Inactivated Comments 11/27/2023 6:26 PM 11/30/2023 6:44 PM * Full Code Date Activated Date Inactivated Comments 10/31/2020 11:16 AM 11/01/2020 3:58 PM Care Teams Hand Clerical Verifier Relationship Specialty Start Date End Date Jacky Jenkins MD [address] [place] [address] PCP - General 01/01/13 Julia Orellana, PT [address] [facility] [address] [place] [address] Physical Therapist Physical Therapy 10/16/20 Garth Fraga MD [address] [place] [address] Rehabilitation Tech Dermatology 09/15/21 Maryann Herndon MD [address] [place] [address] Consulting Physician Neurology 04/04/22 Brien Fine MD [address] [place] [address] Dental Hygiene Instructor Transplant 04/23/23 Vilma Yang RN [address] [facility] [address] [place] [address] Heart Failure Coordinator Fashion Design Professor 04/23/23 Rina Swenson OD [address] [place] [address] Optometry 04/29/23 José Antonio Skinner MD [address] [facility] [address] [place] [address] Consulting Physician Urology 12/11/23 Shereen Najera MD [address] DEPT OPHTHALMOLOGY, [address] [address] Ophthalmology 03/03/25 Alanis Ospina, TAB [address] [facility] DEPT OPHTHALMOLOGY, [address] [place] [address] Optometry 03/03/25
--- OUTSIDE RECORDS SUMMARY | 2025-04-02 07:46 | XMS_ITS | Encounter Summary ---
Author Organization [facility] Address [address] [place] [address] Phone Care Team Providers Care Clearance Cutter Name Role Phone Jacky Jenkins MD Primary Care Prov ider Julia Orellana PT Unavailable Garth Fraga MD Unavailable [phone] Maryann Herndon MD Unavailable Brien Fine MD Unavailable Vilma Yang RN Unavailable [phone] Rina Swenson OD Unavailable [phone] José Antonio Skinner MD Unavailable Shereen Najera MD Unavailable [phone] Alanis Ospina OD Unavailable [phone] Encounter Details Date Type Department Care Team (Late st Contact Info) Description 01/06/2024 E-Visit [facility] Endocrinology Metabolism and Lipid [address] [facility] Medicine 5th [place] [address] [place] [address] Ekta Marin MD [address] [facility] [address] [place] [address] Insulin Social History Tobacco Use Types Packs/Day Years Used Date Smoking Tobacco: Never Passive Smoke Exposure: Past Smokeless Tobacco: Never Alcohol Use Standard Drinks/Week Comments No 0 (1 standard drink = 0.6 oz pur e alcohol) AUDIT-C Answer Date Recorded Q1: How often do you have a drink containing alcohol? Never 12/03/2023 Q2: How many drinks containi ng alcohol do you have on a typical day when you are drinking? Patient does not drink Q3: How often do you have si x or more drinks on one occasion? Never 12/03/2023 Personal Safety Answer Date Recorded Have you ever been in or are you currently in a harmful physical or emotional relationship or is someone making you feel afraid or unsafe? Denies 12/06/2023 Sex and Gender Information Value Date Recorded Sex Assigned at Not on file Legal Sex Male 2:51 AM BATCH AND FURNACE OPERATOR Gender Identity Male 03/14/2021 11:16 AM [...] on filedocumented in this encounter Care Teams Clearance Cutter Relationship Specialty Start Date End Date Jacky Jenkins MD [address] [place] [address] PCP - General 01/01/13 Julia Orellana, PT [address] [facility] [address] [place] [address] Physical Therapist Physical Therapy 10/16/20 Garth Fraga MD [address] [facility] [place] [place] [address] Uniform Cap Operator Dermatology 09/15/21 Maryann Herndon MD [address] [place] [address] Consulting Physician Neurology 04/04/22 Brien Fine MD [address] [place] [address] Marbleizing Machine Tender Transplant 04/23/23 Vilma Yang, BOB [address] [facility] [address]01 [place] [address] Heart Failure Coordinator Automated Access Systems Technician 04/23/23 Rina Swenson OD [address] [place] [address] Optometry 04/29/23 José Antonio Skinner MD [address] [place] [address] Consulting Physician Urology 12/11/23 Shereen Najera MD [address] DEPT OPHTHALMOLOGY, [facility] [address] [place] [address] Ophthalmology 03/03/25 Alanis Ospina, TAB [address] [facility] DEPT OPHTHALMOLOGY, [address] [place] [address] Optometry 03/03/25 documented as of this encounter
--- OUTSIDE RECORDS SUMMARY | 2025-04-02 07:46 | XMS_ITS | Clinical Summary ---
Author Organization [facility] Address [address] [place] [address] Care Team Providers Care Airframe Technical Officer Name Role Phone Jacky Jenkins MD Primary Care Provider [phone] Social History Tobacco Use Types Packs/Day Years Used Date Smoking Tobacco: Never Assessed Sex and Gender Information Value Date Recorded Sex Assigned at Not on file Legal Sex Male 4:03 PM CDT Gender Identity Not on file Sexual Orientation Not on file Plan of Treatment Health Maintenance Due Date Last Done Comments Colorectal Cancer Screening Colonoscopy (10 Years) 1955 Hepatitis C 1971 DTaP, Tdap and Td Vaccines ( 1 - Tdap) 1972 Pneumococcal Vaccine: 50+ Ye ars (1 of 1 - PCV) 2003 Zoster Vaccines (1 of 2) 2003 COVID-19 Vaccine ( - 2023-2 5 season) 2024 RSV Immunization or 60+ Years (1 - 1-dose 75+ series) 2028 Meningococcal B Vaccine Aged Out No l onger eligible based on patient's age to complete this topic Meningococcal Vaccine Aged Out No radha nadir eligible based on patient's age to complete this topic RSV Immunizations Under 20 Months Aged Out No longer eligible based on patient's age to complete this topic [place] [address] [place] [address] [place] [address] Care Teams Airframe Technical Officer Relationship Specialty Start Date End Date Jacky Jenkins MD [address] [place] [address] PCP - General FAMILY PRACTICE 08/09/17
--- OUTSIDE RECORDS SUMMARY | 2025-04-02 07:46 | XMS_ITS | Encounter Summary ---
Author Organization [facility] Healthcare Address [address] [place] [address] Care Team Providers Care Regional [employer] Hazmat Tanker Driver Name Role Phone Jacky Jenkins MD Primary Care Prov ider Julia Orellana PT Unavailable [phone] Garth Fraga MD Unavailable [phone] Maryann Herndon MD Unavailable Brien Fine MD Unavailable Vilma Yang RN Unavailable Rina Swenson OD Unavailable [phone] José Antonio Skinner MD Unavailable [phone] Shereen Najera MD Unavailable [phone] Alanis Ospina OD Unavailable [phone] Reason for Visit * Reason Onset Date Comments PMC Preprocedure 03/01/2025 Encounter Details Date Type Department Care Team (Late st Contact Info) Description 03/01/2025 Telephone [facility] at the [place] for Advanced Medicine [address] [facility] Advanced Medicine [address] [place] [address] Jules Sheffield MD [address] [place] [address] PMC Preprocedure Social History Tobacco Use Types Packs/Day Years Used Date Smoking Tobacco: Never Passive Smoke Exposure: Past Smokeless Tobacco: Never Alcohol Use Standard Drinks/Week Comments No 0 (1 standard drink = 0.6 oz pur e alcohol) AUDIT-C Answer Date Recorded Q1: How often do you have a drink containing alcohol? Never 01/25/2025 Q2: How many drinks containi ng alcohol do you have on a typical day when you are drinking? Patient does not drink Q3: How often do you have si x or more drinks on one occasion? Never 01/25/2025 Personal Safety Answer Date Recorded Have you ever been in or are you currently in a harmful physical or emotional relationship or is someone making you feel afraid or unsafe? 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 Gender Identity Male 03/14/2021 11:16 AM CDT [...] on filedocumented in this encounter Care Teams Regional Company Hazmat Tanker Driver Relationship Specialty Start Date End Date Jacky Jenkins MD [address] [place] [address] PCP - General 01/01/13 Julia Orellana, PT [address] [facility] [address] [place] [address] Physical Therapist Physical Therapy 10/16/20 Garth Fraga MD [address] [facility] [place] [address] It Business Systems Analyst Dermatology 09/15/21 Maryann Herndon MD [address] [place] [address] Consulting Physician Neurology 04/04/22 Brien Fine MD [address] [place] [address] Satellite Tv Installer Transplant 04/23/23 Vilma Yang, BOB 45[address] [facility] [address] [place] [address] Heart Failure Coordinator Branding Specialist 04/23/23 Rina Swenson OD [address] [place] [address] Optometry 04/29/23 José Antonio Skinner MD [address] [facility] 200 [place] [address] Consulting Physician Urology 12/11/23 Shereen Najera MD [address] DEPT OPHTHALMOLOGY, [facility] [address] [place] [address] Ophthalmology 03/03/25 Alanis Ospina, TAB 49[address] [facility], [address] [place] [address] Optometry 03/03/25 documented as of this encounter
== END 2025-04-02 07:40 | disposition home or self-care (01) ==
PROVIDERS: PCP Family Medicine Adolescent Medicine; Visit Provider Urology
DX: N20.0 Calculus of kidney (principal); N40.0 Benign prostatic hyperplasia without lower urinary tract symptoms; K40.90 Unilateral inguinal hernia, without obstruction or gangrene, not specified as recurrent; N50.812 Left testicular pain
CPT/HCPCS: 74176

== ENCOUNTER 2025-07-19 09:42 | Outpatient (CLI) | payer MEDICARE, SELFPAY ==
--- NOTE | ~2025-07-19 | CT_ITS ---
EXAMINATION: CT abdomen pelvis w con DATE: 07/19/2025 10:19 INDICATION: Unspecified abdominal pain. TECHNIQUE: Computed tomography (CT) of the abdomen and pelvis was performed with 100 mL Omnipaque 350 intravenous contrast. Automated exposure control and iterative reconstruction technique were employed. The dose-length product was 1456.70 mGy-cm. COMPARISON: CT abdomen and pelvis 04/02/2025, 07/10/2024 FINDINGS: The visualized portions of lung bases demonstrate mild atelectasis. A calcified left lung nodule is consistent with old granulomatous disease. No pleural effusion. The heart size is normal. No pericardial effusion. The liver, gallbladder, pancreas, and right adrenal gland are normal. There is a chronic 15 mm mass in left adrenal gland, likely an adenoma. There is a 10 mm cyst in right kidney. There is a 3 mm stone in right kidney. The prostate is moderately enlarged. There are bilateral inguinal hernias containing fat. There are no dilated loops of bowel. The appendix is not visualized. There are no pathologically enlarged lymph nodes. There is no free intraperitoneal fluid. There is moderate lumbar spondylosis. IMPRESSION: 1. Bilateral inguinal hernias containing fat. Reviewed, dictated and finalized at location E. TRAFFIC CONTROL SPECIALIST
--- OUTSIDE RECORDS SUMMARY | 2025-07-19 10:22 | XMS_ITS | Encounter Summary ---
Author Organization [facility] Healthcare Address [address] [facility] [place] [address] Care Team Providers Care Fitter / Welder Name Role Phone Jacky Jenkins MD Primary Care Prov ider Julia Orellana PT Unavailable Garth Fraga MD Unavailable [phone] Maryann Herndon MD Unavailable Brien Fine MD Unavailable [phone] Vilma Yang RN Unavailable [phone] Rina Swenson OD Unavailable [phone] José Antonio Skinner MD Unavailable Shereen Najera MD Unavailable [phone] Alanis Ospina OD Unavailable Reason for Visit * Reason Onset Date Comments PMC Preprocedure 04/30/2025 Encounter Details Date Type Department Care Team (Late st Contact Info) Description 04/30/2025 Telephone [facility] [place] for [facility] Medicine [address] [facility] Advanced Medicine [address] [place] [address] Jules Sheffield MD [address] [place] [address] PMC Preprocedure Social History Tobacco Use Types Packs/Day Years Used Date Smoking Tobacco: Never Passive Smoke Exposure: Past Smokeless Tobacco: Never Alcohol Use Standard Drinks/Week Comments Never 0 (1 standard drink = 0.6 oz pur e alcohol) AUDIT-C Answer Date Recorded Q1: How often do you have a drink containing alcohol? Never 04/20/2025 Q2: How many drinks containi ng alcohol do you have on a typical day when you are drinking? Patient does not drink Q3: How often do you have si x or more drinks on one occasion? Never 04/20/2025 Personal Safety Answer Date Recorded Have you ever been in or are you currently in a harmful physical or emotional relationship or is someone making you feel afraid or unsafe? 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 Author CCM Chronic Pain Care Plan Chronic Care Management On track(2024 8:00 AM CDT) Julia Henley, BOB Note: Problem: Chronic Pain Goals: 1. [...] on stairs Contact your local community or [facility] for information on exercise, fall prevention programs, or options for improving home safety. documented as of this encounter Visit Diagnoses Not on filedocumented in this encounter Care Teams Fitter / Welder Relationship Specialty Start Date End Date Jacky Jenkins MD PCP - General 01/01/13 Julia Orellana, PT [address] [facility] [address] [place] [address] Physical Therapist Physical Therapy 10/16/20 Garth Fraga MD [address] [facility] [place] [address] Graphic Design Specialist Dermatology 09/15/21 Maryann Herndon MD [address] [place] [address] Consulting Physician Neurology 04/04/22 Brien Fine MD [address] [place] [address] Veneer Marker Transplant 04/23/23 Vilma Yang, RN [address] [facility] [address] [place] [address] Heart Failure Coordinator Fire Apparatus Sprinkler Inspector 04/23/23 Rina Swenson OD [address] [place] [address] Optometry 04/29/23 José Antonio Skinner MD [address] [address] Consulting Physician Urology 12/11/23 Shereen Najera MD [address] [facility] 200 [place] [address] Ophthalmology 03/03/25 Alanis Ospina OD 49[address] [facility] DEPT OPHTHALMOLOGY, [address] [place] [address] Optometry 03/03/25 documented as of this encounter
--- OUTSIDE RECORDS SUMMARY | 2025-07-19 10:22 | XMS_ITS | Encounter Summary ---
Author Organization [facility] Healthcare Address [address] [place] [address] Care Team Providers Care Tongsman Name Role Phone Jacky Jenkins MD Primary Care Prov ider Julia Orellana PT Unavailable [phone] Garth Fraga MD Unavailable [phone] Maryann Herndon MD Unavailable Brien Fine MD Unavailable [phone] Vilma Yang RN Unavailable [phone] Rina Swenson OD Unavailable [phone] José Antonio Skinner MD Unavailable Shereen Najera MD Unavailable [phone] Alanis Ospina OD Unavailable [phone] Reason for Visit * Reason Onset Date Comments PMC Preprocedure 01/20/2025 Encounter Details Date Type Department Care Team (Late st Contact Info) Description 01/20/2025 Telephone [facility] Pain Center at the [place] for Advanced Medicine [address] [facility] Advanced Medicine [address] [place], [place] [id number] Elisha Umaña MD PhD [address] [facility] [id number] [place], [place] [address] PMC Preprocedure Social History Tobacco Use Types [...] on file 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 documented as of this encounter Visit Diagnoses Not on filedocumented in this encounter Care Teams Tongsman Relationship Specialty Start Date End Date Jacky Jenkins MD PCP - General 01/01/13 Julia Orellana, PT [address] [facility] [address] [place] [address] Physical Therapist Physical Therapy 10/16/20 Garth Fraga MD [address] [facility] [address] [place] [id number] Manager Multicultural Dermatology 09/15/21 Maryann Herndon MD [address] [place] [address] Consulting Physician Neurology 04/04/22 Brien Fine MD [address] [place] [address] Lead Maintenance Technician Transplant 04/23/23 Vilma Yang, RN [address] [facility] [address] [place] [address] Heart Failure Coordinator Candy Attendant 04/23/23 Rina Swenson OD [address] [place] [address] Optometry 04/29/23 José Antonio Skinner MD [address] [facility] 200 [place] [address] Consulting Physician Urology 12/11/23 Shereen Najera MD [address] [facility] 200 [place] [address] Ophthalmology 03/03/25 Alanis Ospina OD 49[address] [facility] DEPT OPHTHALMOLOGY, [address] [place] [address] Optometry 03/03/25 documented as of this encounter
--- OUTSIDE RECORDS SUMMARY | 2025-07-19 10:22 | XMS_ITS | Encounter Summary ---
Author Organization [facility] Healthcare Address [address] [place] [address] Care Team Providers Care Material Cutter Name Role Phone Jacky Jenkins MD Primary Care Prov ider Julia Orellana PT Unavailable Garth Fraga MD Unavailable [phone] Maryann Herndon MD Unavailable Brien Fine MD Unavailable Vilma Yang RN Unavailable [phone] Rina Swenson OD Unavailable [phone] José Antonio Skinner MD Unavailable [phone] Shereen Najera MD Unavailable [phone] Alanis Ospina OD Unavailable [phone] Reason for Visit * Reason Onset Date Comments PMC Preprocedure 07/28/2024 Encounter Details Date Type Department Care Team (Late st Contact Info) Description 07/28/2024 Telephone [facility] Center at the [place] for Advanced Medicine [address] [facility] Advanced Medicine [address] [place], [place] [id number] Elisha Umaña MD PhD [address] [facility] [id number] [place], [place] [id number] PMC Preprocedure Social History Tobacco Use Types [...] on file Legal Sex Male 2:51 AM FUR PLUCKER Gender Identity Male 03/14/2021 11:16 AM CDT Sexual Orientation Straight 01/13/2019 8: 33 PM CDT 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 on file Not on file documented as of this encounter Functional Status * Question Answer Date of Assessment Author BP Location Left arm 07/31/2024 11:33 AM Pancho Moran RN BP Method Automatic 07/31/2024 11:33 AM Pancho Moran RN MAP (mmHg) 79 07/31/2024 1:25 PM Emperatriz Burt RN * AUDIT-C Score Answer Date of Assessment Author 0 07/31/2024 10:04 AM Emperatriz Syed RN * Alcohol Use Question Answer Date of Assessment Author Q1: [...] On track(2024 8:00 AM CDT) Julia Henley, RN Note: Problem: [...] on stairs Contact your local community or [facility] for information on exercise, fall prevention programs, or options for improving home safety. documented as of this encounter Visit Diagnoses Not on filedocumented in this encounter Care Teams Material Cutter Relationship Specialty Start Date End Date Jacky Jenkins MD PCP - General 01/01/13 Julia Orellana, PT [address] [place] [address] Physical Therapist Physical Therapy 10/16/20 Garth Fraga MD [address] [facility] [place] [address] Diamond Wheel Molder Dermatology 09/15/21 Maryann Herndon MD [address] [place] [address] Consulting Physician Neurology 04/04/22 Brien Fine MD [address] [place] [address] Research And Development Scientist Transplant 04/23/23 Vilma Yang, RN [address] [facility] [address] [place] [address] Heart Failure Coordinator Gallery Or Museum Technician 04/23/23 Rina Swenson, OD [address] [place] [address] Optometry 04/29/23 José Antonio Skinner MD [address] [facility] [address] [facility] 200 [place] [address] Consulting Physician Urology 12/11/23 Shereen Najera MD [address] [facility] [address] [facility] 200 [place] [address] Ophthalmology 03/03/25 Alanis Ospina, OD 49[address] [facility] DEPT OPHTHALMOLOGY, [address] [place] [address] Optometry 03/03/25 documented as of this encounter
--- OUTSIDE RECORDS SUMMARY | 2025-07-19 10:22 | XMS_ITS | Encounter Summary ---
Author Organization [facility] Healthcare Address [address] [place] [address] Care Team Providers Care Owner [employer] Name Role Phone Jacky Jenkins MD Primary Care Prov ider Julia Orellana PT Unavailable [phone] Garth Fraga MD Unavailable [phone] Maryann Herndon MD Unavailable Brien Fine MD Unavailable [phone] Vilma Yang RN Unavailable [phone] Rina Swenson OD Unavailable [phone] José Antonio Skinner MD Unavailable Shereen Najera MD Unavailable [phone] Alanis Ospina OD Unavailable Reason for Visit * Reason Onset Date Comments question 12/18/2024 Encounter Details Date Type Department Care Team (Late st Contact Info) Description 12/18/2024 Telephone [facility] at the [place] for Advanced Medicine [address] [facility] Advanced Medicine [address] [place] [address] Jules Sheffield MD [address] [place] [address] question Social History Tobacco Use [...] on file Legal Sex Male 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 Gender Identity Male 03/14/2021 11:16 AM CDT [...] Management On track(2024 8:00 AM CDT) Julia Henley RN Note: Problem: [...] on filedocumented in this encounter Care Teams Owner [employer] Relationship Specialty Start Date End Date Jacky Jenkins MD PCP - General 01/01/13 Julia Orellana, PT [address] [facility] [address] [place] [address] Physical Therapist Physical Therapy 10/16/20 Garth Fraga MD [address] [facility] [place] [address] Adjunct Professor Of Law Dermatology 09/15/21 Maryann Herndon MD [address] [place] [address] Consulting Physician Neurology 04/04/22 Brien Fine MD [address] [place] [address] Veneer Production Machine Operator Transplant 04/23/23 Vilma Yang, RN 45[address] [facility] [address] [place] [address] Heart Failure Coordinator Sales Support Administrator 04/23/23 Rina Swenson OD [address] [place] [address] Optometry 04/29/23 José Antonio Skinner MD [address] [address] Consulting Physician Urology 12/11/23 Shereen Najera MD [address] [facility] 200 [place] [address] Ophthalmology 03/03/25 Alanis Ospina, TAB 4901 [facility] DEPT OPHTHALMOLOGY, [address] [place] [address] Optometry 03/03/25 documented as of this encounter
--- OUTSIDE RECORDS SUMMARY | 2025-07-19 10:22 | XMS_ITS | Encounter Summary ---
Author Organization [facility] Healthcare Address [address] [place] [address] Care Team Providers Care Dramatic Critic Name Role Phone Jacky Jenkins MD Primary Care Prov ider Julia Orellana PT Unavailable Garth Fraga MD Unavailable [phone] Maryann Herndon MD Unavailable Brien Fine MD Unavailable [phone] Vilma Yang RN Unavailable [phone] Rina Swenson OD Unavailable [phone] José Antonio Skinner MD Unavailable [phone] Shereen Najera MD Unavailable [phone] Alanis Ospina OD Unavailable [phone] Reason for Visit * Reason Onset Date Comments Pre-Procedure Instructions 06/17/2024 Encounter Details Date Type Department Care Team (Late st Contact Info) Description 06/17/[address] 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 Never 06/19/2024 8:10 AM Anastasia Mehta RN Q2: How many drinks containing alcohol [...] on stairs Contact your local community or [facility] for information on exercise, fall prevention programs, or options for improving home safety. documented as of this encounter Visit Diagnoses Not on filedocumented in this encounter Care Teams Dramatic Critic Relationship Specialty Start Date End Date Jacky Jenkins MD PCP - General 01/01/13 Julia Orellana, PT [address] [place] [address] Physical Therapist Physical Therapy 10/16/20 Garth Fraga MD [address] [facility] [place] [address] Delivery Mgr Dermatology 09/15/21 Maryann Herndon MD [address] [place] [address] Consulting Physician Neurology 04/04/22 Brien Fine MD [address] [place] [address] Magistrate Transplant 04/23/23 Vilma Yang, RN [address] [facility] [address] [place] [address] Heart Failure Coordinator Wide Area Network Systems Administrator 04/23/23 Rina Swenson OD [address] [place] [address] Optometry 04/29/23 José Antonio Skinner MD [address] [facility] [address] [facility] [address] [place] [address] Consulting Physician Urology 12/11/23 Shereen Najera MD [address] [facility] [address] [facility] 200 [place] [address] Ophthalmology 03/03/25 Alanis Ospina, OD [address] [facility] O[facility], [address] [place] [address] Optometry 03/03/25 documented as of this encounter
--- OUTSIDE RECORDS SUMMARY | 2025-07-19 10:22 | XMS_ITS | Encounter Summary ---
Author Organization [facility] Healthcare Address [address] [facility] [place] [address] Care Team Providers Care Reed Repairer Name Role Phone Jacky Jenkins MD Primary Care Prov ider Julia Orellana PT Unavailable [phone] Garth Fraga MD Unavailable [phone] Maryann Herndon MD Unavailable Brien Fine MD Unavailable Vilma Yang RN Unavailable [phone] Rina Swenson OD Unavailable [phone] José Antonio Skinner MD Unavailable [phone] Shereen Najera MD Unavailable [phone] Alanis Ospina OD Unavailable [phone] Reason for Visit * Reason Onset Date Comments PMC Preprocedure 05/31/2025 Encounter Details Date Type Department Care Team (Late st Contact Info) Description 05/31/2025 Telephone [facility] at the [place] [facility] [address] [facility] [address] [place] [address] Jules Sheffield MD [address] [place] [address] PMC Preprocedure Social History Tobacco Use Types Packs/Day Years Used Date Smoking Tobacco: Never Passive Smoke Exposure: Past Smokeless Tobacco: Never Alcohol Use Standard Drinks/Week Comments Never 0 (1 standard drink = 0.6 oz pur e alcohol) AUDIT-C Answer Date Recorded Q1: How often do you have a drink containing alc ohol? Never 06/03/2025 Average Number of Drinks Not on file 025 Frequency of Binge Drinking Not on file 05/11 Personal Safety Answer Date Recorded Have you ever been in or are you currently in a harmful physical or emotional relationship or is someone making you feel afraid or unsafe? 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 Never 06/03/2025 7:43 AM CDT Ab priscila Damico RN documented as of this encounter Plan of Treatment Not on file documented as of this encounter Goals Goal Patient Goal Type Associated Problems Recent Progress Patient-Stated? Author [facility] Chronic Pain Care Plan Chronic Care Management On track(2024 8:00 AM CDT) No Julia Joseph RN Note: [...] on stairs Contact your local community or [facility] for information on exercise, fall prevention programs, or options for improving home safety. documented as of this encounter Visit Diagnoses Not on filedocumented in this encounter Care Teams Reed Repairer Relationship Specialty Start Date End Date Jacky Jenkins MD PCP - General 01/01/13 Julia Orellana, PT [address] [facility] [address] [place] [address] Physical Therapist Physical Therapy 10/16/20 Garth Fraga MD [address] [facility] [address] Lead Software Test Engineer Dermatology 09/15/21 Maryann Herndon MD [address] [place] [address] Consulting Physician Neurology 04/04/22 Brien Fine MD [address] [place] [address] Marketing And Outreach Coordinator Transplant 04/23/23 Vilma Yang, RN [address] [facility] [address] [place] [address] Heart Failure Coordinator Traffic Agent 04/23/23 Rina Swenson OD [address] [place] [address] Optometry 04/29/23 José Antonio Skinner MD [address] [facility] [address] [facility] [address] [place] [address] Consulting Physician Urology 12/11/23 Shereen Najera MD [address] [facility] [address] [facility] [address] [place] [address] Ophthalmology 03/03/25 Alanis Ospina OD [address] [facility] OPH[facility]AL[facility]OLOGY, [address] [place] [address] Optometry 03/03/25 documented as of this encounter
--- OUTSIDE RECORDS SUMMARY | 2025-07-19 10:23 | XMS_ITS | Encounter Summary ---
Author Organization [facility] Address [address] [place] [address] Phone Care Team Providers Care Senior Designer Name Role Phone Jacky Jenkins MD Primary Care Prov ider Julia Orellana PT Unavailable Garth Fraga MD Unavailable [phone] Maryann Herndon MD Unavailable Brien Fine MD Unavailable Vilma Yang RN Unavailable Rina Swenson OD Unavailable [phone] José Antonio Skinner MD Unavailable [phone] Shereen Najera MD Unavailable [phone] Alanis Ospina OD Unavailable Encounter Details Date Type Department Care Team (Late st Contact Info) Description 01/06/2024 E-Visit [facility] Medicine Endocrinology Metabolism and Lipid [address] [facility] [address] 5th [place] [address] [place] [address] Ekta Marin MD [address] [facility] [address] [place] [address] Insulin Social History Tobacco Use [...] on file 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 Gender Identity Male 03/14/2021 11:16 AM CDT Sexual Orientation Straight 01/13/2019 8: 33 PM CDT 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 on file Not on file documented as of this encounter Functional Status documented as of this encounter Plan of [...] on filedocumented in this encounter Care Teams Senior Designer Relationship Specialty Start Date End Date Jacky Jenkins MD PCP - General 01/01/13 Julia Orellana, PT [address] [facility] [address] [place] [address] Physical Therapist Physical Therapy 10/16/20 Garth Fraga MD [address] [facility] [address] [place] [address] Skating Rink Ice Maker Dermatology 09/15/21 Maryann Herndon MD [address] [place] [address] Consulting Physician Neurology 04/04/22 Brien Fine MD [address] [place] [address] Dry Clipper Tender Transplant 04/23/23 Vilma Yang, BOB [address] [facility] [address] [place] [address] Heart Failure Coordinator Market Master 04/23/23 Rina Swenson OD [address] [place] [address] Optometry 04/29/23 José Antonio Skinner MD [address] [facility] 200 [place] [address] Consulting Physician Urology 12/11/23 Shereen Najera MD [address] [facility] 200 [place] [address] Ophthalmology 03/03/25 Alanis Ospina OD [address] [facility] OPHTHALMOLOGY, [address] [place] [address] Optometry 03/03/25 documented as of this encounter
--- OUTSIDE RECORDS SUMMARY | 2025-07-19 10:23 | XMS_ITS | Clinical Summary ---
Author Organization [facility] Address [address] [place] [address] Care Team Providers Care Supplier Specialist Name Role Phone Jacky Jenkins MD Primary Care Prov ider Julia Orellana PT Unavailable Garth Fraga MD Unavailable Maryann Herndon MD Unavailable Brien Fine MD Unavailable Vilma Yang RN Unavailable [phone] Rina Swenson OD Unavailable [phone] José Antonio Skinner MD Unavailable [phone] Shereen Najera MD Unavailable [phone] Alanis Ospina OD Unavailable Allergies Active Allergy Reactions Criticality Noted Date [...] total) by mouth nightly 04/17/20 22 Active rosuvastatin (CRESTOR) 5 mg tablet Take 1 tablet (5 mg total) by mouth daily 90 tablet 10/19/19 25 2025 Active blood-glucose sensor (Dexcom G7 Sensor) deviceIndicati ons: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 Change sensor every 10 days DME ONLY 9 each 11/06/19 25 Active pioglitazone (ACTOS) 30 mg tabletIndicati ons:Type 2 diabetes mellitus with diabetic neuropathy, unspecified whether parts counterman insulin use (HCC) TAKE 1 TABLET(30 MG) BY MOUTH DAILY 90 tablet 12/16/19 25 Active furosemide (LASIX) 40 mg [...] diabetes mellitus with diabetic neuropathy, unspecified whether fci insulin use (HCC) Inject 22 Units under the skin daily 20 mL 02/18/20 25 2025 Active folic acid (FOLVITE) 1 mg tabletIndicati ons:Idiopathic peripheral neuropathy TAKE 1 TABLET(1 MG) BY MOUTH DAILY 30 tablet 03/02/[address] (CYMBALTA) 30 mg capsuleIndicat ions:Idiopathi c peripheral neuropathy TAKE 3 CAPSULES BY MOUTH DAILY 90 capsule 03/15/20 25 Active gabapentin (NEURONTIN) 600 mg tablet TAKE 2 TABLETS(1200 MG) BY MOUTH THREE TIMES DAILY 180 tablet 04/29/20 25 Active oxyCODONE (ROXICODONE) 5 mg immediate release tabletIndicati ons:Pain Take 1 tablet (5 mg total) by mouth every 4 (four) hours as needed for pain 28 tablet 06/19/20 25 Active ketorolac (TORADOL) 10 mg tablet Take 1 tablet (10 mg total) by mouth every 6 (six) hours as needed for pain 20 tablet 2 07/08/20 25 Active clopidogreL (PLAVIX) 75 mg tablet 07/10/20 25 Active traMADoL (ULTRAM) 50 mg tabletIndicati ons:Chronic pain syndrome Take 1 tablet (50 mg total) by mouth 5 times daily as needed for pain 150 tablet 07/17/20 25 Active traMADoL (ULTRAM) 50 mg tabletIndicati ons:Chronic pain syndrome Take 1 tablet (50 mg total) by mouth every 6 (six) hours as needed for pain MAX dose 5 tabs per day 150 tablet 06/07/20 25 2024 Discontinued acetaminophen 500 mg capsule Take 1 capsule (500 mg total) by mouth every 6 (six) hours as needed for pain or headaches 06/19/20 25 2024 Discontinued(P atient Reported) methylPREDNISo lone (MEDROL DOSEPACK) 4 mg Dosepack Take as directed on package 1 packet 07/08/20 25 2024 Discontinued(T herapy completed) Active Problems Problem Noted Date Diagnosed Date PVD (posterior vitreous detachment), left 2024 Assessment & Plan (07/14/2025 11:58 AM MACHINE TRACER): Posterior vitreous detachment noted without presence of retinal break/hole/tear 360 upon DFE w/ scleral depression OS. Pt educated on symptoms of retinal detachment (new floaters, flashes, and/or curtain/loss of vision) and told to RTC immediately if any new/worsening symptoms occur. Otherwise, RTC in 6-8 weeks for repeat DFE. Brain aneurysm 06/18/2025 PVD (posterior vitreous detachment), right eye 0 01/27/2025 Assessment & Plan (07/14/2025 11:58 AM MACHINE TRACER): Stable PVD, monitor. Assessment & Plan (03/10/2025 12:14 PM CDT): +stable PVD OD, no Jose's -inferior hemorrhage resolved OD -s/s RD/RT discussed with pt today; RTC ILAN if any symptoms arise -follow annually Assessment & Plan (01/27/2025 11:09 AM CDT): +floaters, flashes of light OD x yesterday; flashes have resolved and now has atypical appearing floaters +PVD OD, no [place]'s +hemorrhage inferiorly; no h/b/t noted today -discussed [...] (will have cylinder (cyl)) Assessment & Plan (07/14/2025 11:59 AM MACHINE TRACER): Monitor Assessment & Plan (03/10/2025 12:14 PM CDT): [...] compresses Assessment & Plan (10/30/2024 9:46 AM MACHINE TRACER): 07/13/2024- Extraction Cataract - Phacoemulsification And Lens [...] compresses Assessment & Plan (10/12/2024 12:46 PM MACHINE TRACER): Post op day 1s/p Extraction Cataract - [...] concerns Assessment & Plan (09/21/2024 11:09 AM MACHINE TRACER): Status-post Extraction Cataract - Phacoemulsification And Lens Implant Left Eye - Left 07/13/2024 Pt notes vision may be sl better than prior to surgery, but feels not clear because of right eye (OD). BCVA 20/20. Well healed. Ok to proceed with cataract extraction (CE) right eye (OD). Assessment & Plan (07/24/2024 10:28 AM MACHINE TRACER): Status-post Extraction Cataract - Phacoemulsification And Lens [...] visit Assessment & Plan (07/13/2024 3:31 PM MACHINE TRACER): Post op day 1s/p Extraction Cataract - [...] had been before and after eyelid surgery Cardiomyopathy, hypertrophic 04/23/2023 Overview (06/01/2025): TTE February 2019: Normal LVEF. Moderate LVH with septum 1.5 cm. vLVOT gradient 50 mmHg. Sister with LVOT gradient and septal hypertrophy - with respiratory failure TTE Sept 2022 with crescent shaped LV with max thickness 1.3 cm and strain findings c/w HCM. vLVOT 9 mmHg. Cardiac MRI June 2024 Presence of hypertrophic cardiomyopathy, with thickest myocardial segment within the septal wall at the base, measuring 16 mm (diastole). Thickest myocardial septal segment is at base and measures 35 mm from annulus in diastole. Left ventricular systolic function: difficult to evaluate but appears normal by visual inspection. Evaluation on single slice with EF 53% Left ventricular myocardial mass is 156 g based on the contrast enhanced images, mass index could not be calculated. Late gadolinium enhancement: mid myocardial enhancement within the septum, lateral wall, and inferolateral wall at the base, mass of LGE 13 g, percent myocardial mass 8%. Although this calculation is mildly limited, it is visually certainly less than 15%. Systolic anterior motion of the anterior leaflet of the mitral valve is present. Peak velocity above aortic valve, 2.0 m/sec; gradient 16 mmHg; Peak velocity below aortic valve (in region of DOMINIC jet, if present, 20 m/sec; gradient 16 mmHg. Flow calculations are less accurate in the region below the valve plane secondary to increased turbulence. Length of anterior leaflet of mitral valve is 33 mm in diastole. 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 Followed at by Dr Herndon Pain in both lower extremities 04/20/2021 Overview (04/20/2021): Added automatically from request for surgery [id number] Diastolic dysfunction without heart failure 10/10 ISMAEL [...] (09/27/2020): Added automatically from request for surgery [id number] Cancer of brain treated with radiation therapy [...] time Assessment & Plan (09/21/2024 11:08 AM MACHINE TRACER): Patient complains of significant symptoms and problems [...] view Assessment & Plan (07/24/2024 10:27 AM MACHINE TRACER): Likely vis sig, but want patient to [...] (04/19/2022): Added automatically from request for surgery [id number] Encounters Date Type Department Care Team Description 07/14/2025 11:00 AM MACHINE TRACER Office Visit [facility] Medicine Ophthalmology [facility] 6th Floor, [address] [place] [id number] PVD (posterior vitreous detachment), left (Primary Dx); PVD (posterior vitreous detachment), right eye; Pseudophakia of both eyes 07/08/2025 Orders Only [facility] Medicine Neurosurgery [facility] 6th [place] [address] [place] [address] Shira Walters, BOB 07/08/2025 Orders Only [facility] Medicine Neurosurgery [address] [facility] 6th [place] [address] [place] [address] Shira Walters, BOB 07/05/2025 7:45 AM CDT - 07/05/2025 11:59 PM CDT Hospital Encounter [facility] at the [facility] [address] [facility] [address] [place] [address] Tarun Nevarez, MARY Vasculitic neuropathy (Primary Dx) Discharge Disposition: Discharge to home or self care 06/30/2025 Telephone [facility] [address] [facility] [address] [place] [address] Jules Sheffield MD PMC Preprocedure 06/23/2025 10:02 AM CDT - 06/23/2025 11:59 PM CDT Hospital Encounter [facility] Pain Center at the [place] [facility] [address] [facility] [address] [place] [address] Jules Sheffield MD Chronic pain of left knee Discharge Disposition: Discharge to home or self care 06/22/2025 Telephone [facility] Neurosurgery [address] [place] [address] [facility] 6th [place] [address] [place] [address] Shira Walters RN 06/18/2025 9:38 PM CDT - 06/19/2025 1:34 PM CDT Hospital Encounter [address] [address] Stephan Corrigan MD Athiraman, Umeshkumar, MD Mohrmann, Alexander Michael, CRNA Cerebral aneurysm, nonruptured Discharge Disposition: Discharge to home or self care 06/18/2025 2:29 PM CDT Anesthesia Event [facility] Neuro Interventional Radiology [address] [place] [address] Miguel Garcia MD Saunders, Sara Louise, NP 06/17/2025 Telephone [facility] Center at [facility] [place] [facility] [address] [facility] [address] [place] [address] Jules Sheffield MD PMC Preprocedure 06/14/2025 Orders Only Radiology [address] [place] [address] Sharon Diego PA 06/11/2025 8:00 AM CDT Pre-Admission Testing [facility] for Preoperative Assessment and Planning [facility] [facility] ([facility]) [address] [place] [address] Preoperative testing (Primary Dx); Cerebral aneurysm, nonruptured 06/10/2025 Orders Only [facility] at [facility] [address] [facility] [address], [address] [place] [phone] Jules Sheffield MD Acute pain of both knees (Primary Dx); Chronic pain of left knee 06/08/2025 Documentation [facility] Transplant Heart [address] [facility] [address] [phone] [place] [address] Dona Ahn RN 06/03/2025 7:25 AM CDT - 06/03/2025 11:59 PM CDT Hospital Encounter [facility] [address] [place] [address] Jules Sheffield MD Zimmermann, Patrick Stephen, MD Vasculitic neuropathy (Primary Dx) Discharge Disposition: Discharge to home or self care 06/01/2025 10:45 AM CDT Office Visit [facility] Medicine Cardiology [address] [facility] [address] [place] [address] Brien Fine MD Cardiomyopathy, hypertrophic (HCC) (Primary Dx) 06/01/2025 Telephone [facility] [address] [place] [address] Jules Sheffield MD Procedure question/concern 05/31/2025 Telephone [facility] [address] [place] [address] [facility] [address] [place] [address] Jules Sheffield MD PMC Preprocedure 05/19/2025 11:20 AM CDT Office Visit [facility] Endocrinology Metabolism and Lipid [facility] [address], [address] [place] [phone] Ekta Marin MD Type 2 diabetes mellitus with diabetic neuropathy, unspecified whether fci insulin use (HCC) (Primary Dx) 05/19/20[address] Orders [address] [facility] Neuro Interventional Radiology 1 [place] [address] Nevin Lopez Cerebral aneurysm, nonruptured (Primary Dx) 05/18/2025 Orders Only [facility] Medicine Neurosurgery [address] [facility] 6th [place] [address] [place] [address] Shira Walters RN 05/17/2025 8:14 AM CDT - 05/17/2025 11:59 PM CDT Hospital Encounter [facility] Neuro Interventional Radiology 1 [place] [address] Stephan Corrigan MD Cerebral aneurysm, nonruptured Discharge Disposition: Discharge to home or self care 05/17/2025 Orders Only Radiology 1 [place] [address] Sharon Diego PA 05/12/[address] [facility] Neuro Interventional Radiology [address] [place] [address] Justin Ball RT 05/11/[address] [facility] Neuro Interventional Radiology [address] [place] [address] Dayan Henao RN 05/06/2025 8:26 AM CDT - 05/06/2025 11:59 PM CDT Hospital Encounter [facility] [place] [facility] [address] [place] [address] [facility] [address] [place] [address] Jules Shefifeld MD Vasculitic neuropathy (Primary Dx) Discharge Disposition: Discharge to home or self care 04/30/2025 Telephone [facility] [place] [facility] [address] [place] [address] [facility] [address] [place] [address] Jules Sheffield MD PMC Preprocedure 04/20/2025 10:40 AM CDT Office Visit [facility] Medicine Neurosurgery [address] [place] [address] 6th [place] [address] [place] [address] Stephan Corrigan MD Cerebral aneurysm, nonruptured (Primary Dx) 04/20/2025 Telephone [facility] Neurosurgery [address] [facility] 6th [place] [address] [place] [address] Shira Walters RN 04/20/2025 Orders Only [facility] Neurosurgery [address] [facility] 6th [place] [address] [place] [address] Shira Walters RN Cerebral aneurysm, nonruptured (Primary Dx) from Last 3 Months Immunizations Immunization Administration Dates Next Due Influenza, Unspecified 07/08/2023 Moderna SARS-CoV-2 Monovalent Vaccination (12+ Y RS) [...] 2004,Jun 2005, PLANTAR FASCIA RELEASE Apr 2000 ANGIO SELECTIVE CAROTID POLICE SURGEON RIGHT 05/17/2025 Right ANGIO SELECTIVE INTERNAL CAROTID RIGHT 06/18/2025 Right Medical History Medical History Date Comments Kidney stone Peripheral neuropathy Sleep apnea uses BiPAP Diabetes mellitus steroid induced Neck pain Leg pain, bilateral Chronic pain disorder Left ventricular hypertrophy 04/23/2023 Hypertrophic cardiomyopathy (HCC) 05/2023 Cataract Joint pain Low back pain April 2020 Low back pain April 2020 Neck pain Bilateral leg pain Bilateral foot pain Fatigue Inflammation of arteries Oct 2018 Arthritis Oct 2020 Autoimmune disease January 2021 Type 2 diabetes mellitus Family History Medical History Relation Name Comments Cancer Brother Pablo Antunez Family history of malignant neoplasm - (Added by TW Conv) Arthritis Father Dave Antunez Arthritis Mother Kezia Antunez Cancer Mother Kezia Antunez Family history of malignant neoplasm - (Added by TW Conv) Heart disease Sister 1 Cancer Sister 2 Shivani Cowan Heart disease Sister 2 Shivani Cowan Malig Hyperthermia Neg Hx Pseudochol deficiency Neg Hx Relation Name Status Comments Brother Pablo Antunez Father Dave Antunez Mother Kezia Antunez Sister 1 Sister 2 Shivani Cowan Social History Tobacco Use Types Packs/Day Years Used Date Smoking Tobacco: Never Passive Smoke Exposure: Never Smokeless Tobacco: Never Tobacco Cessation:Counseling Given: Not Answered Alcohol Use Standard Drinks/Week Comments Never 0 (1 standard drink = 0.6 oz pur e alcohol) AUDIT-C Answer Date Recorded Q1: How often do you have a drink containing alcohol? Never 07/05/2025 Q2: How many drinks containi ng alcohol do you have on a typical day when you are drinking? Patient does not drink Q3: How often do you have si x or more drinks on one occasion? Never 07/05/2025 Personal Safety Answer Date Recorded Have you ever been in or are you currently in a harmful physical or emotional relationship or is someone making you feel afraid or unsafe? 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 on file Not on file Last Filed Vital Signs Vital Sign Reading Time Taken Comments Blood Pressure 124/66 07/05/2025 10:32 AM CDT Pulse 71 07/05/2025 10:32 AM CDT Temperature 36.4 C (97.5 F) 07/05/2025 7:54 AM CDT Respiratory Rate 18 07/05/2025 10:32 AM CDT Oxygen Saturation 93% 07/05/2025 10:32 AM CDT Inhaled Oxygen Concentration - - Weight 129.3 kg (285 lb) 07/05/2025 7:54 AM CDT Height 193 cm (6' 4) 07/05/2025 7:54 AM CDT Body Mass Index 34.69 07/05/2025 7:54 AM CDT Plan of Treatment Health Maintenance Due Date Last Done Comments Colon Cancer Screening-Colonoscopy 1955 Depression Screening 1955 DTaP/Tdap/Td Vaccine (1 - Tdap) 1964 Pneumococcal vaccine 65+ (1 of 2 - PCV) 1972 Well Visit 65+ 2018 Covid-19 Vaccine (4 - 2024-2 6 season) 2025 07/01/2021, 12/10/2020, 11/13/2020 Influenza Vaccine (#1) 2025 , 07/04/2023, 07/03/2022, Additional history exists Albumin Creatinine Ratio, Urine 06/01/2025 Foot Exam 06/01/2025 06/01/2024, 02/13/2024 Lipid Panel 06/01/2025 06/01/2024, 04/23/2023 Hemoglobin A1C 11/16/2025 05/19/2025, 02/07, 08/03/2024, Additional history exists eGFR 06/11/2026 06/11/2025, 10/10, 06/01/2024, Additional history exists Fall Risk Assessment 06/19/2026 06/19/2025, 05/26/2024, 05/01/2024, Additional history exists Dilated Eye Exam 07/14/2026 07/14/2025, 10/2024, 01/27/2025, Additional history exists Hepatitis B Screening Completed 09/22/2018 Hepatitis C Screening Completed 09/22/2018 Zoster Vaccine [...] needed Reduce the likelihood of falling Lifestyle oJsee Larkin, BOB Note: Below are four things [...] on stairs Contact your local community or [facility] for information on exercise, fall prevention programs, or options for improving home safety. Medical Devices Implanted Type Area Web Analytics Developer Device Identifier Shelf Expiration Date Model / Serial / Lot [employer] Cna0t0.080 Lens Iol Cna0t0.080 [facility] Autonom - [id number] - [id number] Implanted:Qty: 1 on 07/13/2024 by Shereen Najera MD at [facility] Lens Left: Eye [employer] 06/18/2027 CNA0T0.0 80 / [id number] / Description:19.5 D [employer] Lens Iol Cca0t0.205 [facility]onom Cca0t0.205 - [id number] - [id number] Implanted:Qty: 1 on 10/12/2024 by Shereen Najera MD at [facility] Lens Right: Eye [employer] 08/17/2026 CCA0T0.2 05 / [id number] [facility] [employer] 5517-F-802 Triathlon Cruciate Retain Bead Knee Right 8 Component Femoral Pa - S0 - [id number] Implanted:Qty: 1 on 10/31/2020 by Aly Blankenship MD at [facility] Other - see comments Right: Knee [employer] [id number] 06/17/2025 5517-F-8 02 / 0 / [id number] Description:Femur [employer] 5536-B-800 Triathlon Tritanium Knee 8 Baseplate Tibial - S0 - [id number] Implanted:Qty: 1 on 10/31/2020 by Aly Blankenship MD at [facility] Other - see comments Right: Knee [facility] [id number] 07/02/2025 5536-B-8 00 / 0 / [id number] Description:Tibial component [employer] 1872-C-015-E Insert Tibial Triathlon 8 H9mm Knee Bearing Condylar Stabilize Sterile - S0 - [id number] Implanted:Qty: 1 on 10/31/2020 by Aly Blankenship MD at [facility] Other - see comments Right: Knee [facility] [id number] 06/21/2025 5531-G-8 09-E / 0 / [id number] Description:Tibial insert [employer] [id number] Advance 3-4mm 50mm Allograft Graft Nerve Sterile - [id number] Implanted:Qty: 1 on 05/02/2021 by Janet Pedroza MD at [facility] Left: Leg [employer] 11/07/2023 [id number] / / [id number] [employer] Angio-Seal Vip 6fr Closere Device [id number] - [id number] Implanted:Qty: 1 on 06/18/2025 by Elias Sinclair MD at [facility] [employer] 12/18/2025 [id number] / / [id number] Procedures Procedure Name Priority Date/Time Associated Diagnosis Comments PAIN MGMT IMAGING SHOULDER, HIP, KNEE JOINT/BURSA INJ LEFT Schedule Routine, Read Routine (OP Routine) 06/23/2025 11:59 AM CDT Chronic pain of left knee POCT GLUCOSE DEVICE Routine 06/19/2025 8 :26 AM CDT POCT GLUCOSE DEVICE Routine 06/19/2025 4:05 AM CDT POCT GLUCOSE DEVICE Routine 06/18/2025 1 1:57 PM CDT POCT GLUCOSE DEVICE Routine 06/18/2025 1 0:10 PM CDT POCT GLUCOSE DEVICE Routine 06/18/2025 4 :59 PM CDT POCT GLUCOSE DEVICE Routine 06/18/2025 4 :17 PM CDT ANGIO SELECTIVE INTERNAL CAROTID RIGHT Schedule Routine, Read Routine (OP Routine) 06/18/2025 4:16 PM CDT Cerebral aneurysm, nonruptured POCT ACTIVATED CLOTTING TIME, LOW RANGE Routine 06/18/2025 3:27 PM CDT CA AN PROCEDURE PLACEHOLDER Routine 06/18/2025 2:49 PM CDT CA AN ELECTIVE ENDOTRACHEAL AIRWAY Routine 06/18/2025 2:49 PM CDT POCT GLUCOSE DEVICE Routine 06/18/2025 1 :04 PM CDT EGFR Routine 06/11/2025 10:05 AM CDT Cerebral aneurysm, nonruptured DIFFERENTIAL AUTO Routine 06/11/2025 10: 05 AM CDT Cerebral aneurysm, nonruptured CPAP APTT ALGORITHM Routine 06/11/2025 1 0:05 AM CDT Preoperative testing VERIFY NOW CLOPIDOGREL Routine 06/11/2025 10:05 AM CDT Cerebral aneurysm, nonruptured PROTIME-INR Routine 06/11/2025 10:05 AM CDT Cerebral aneurysm, nonruptured CBC WITH AUTO DIFFERENTIAL Routine 06/11/2025 10:05 AM CDT Cerebral aneurysm, nonruptured BASIC METABOLIC PANEL Routine 06/11/2025 10:05 AM CDT Cerebral aneurysm, nonruptured ECG 12-LEAD Routine 06/11/2025 9:38 AM CDT Preoperative testing POCT HEMOGLOBIN A1C Routine 05/19/2025 1 2:02 PM CDT Type 2 diabetes mellitus with diabetic neuropathy, unspecified whether fci insulin use (HCC) ANGIO SELECTIVE CAROTID POLICE SURGEON RIGHT Schedule Routine, Read Routine (OP Routine) 05/17/2025 10:48 AM CDT Cerebral aneurysm, nonruptured LIPID PANEL Routine 06/01/2024 11:55 AM CDT Type 2 diabetes mellitus with hyperglycemia, with long-term current use of insulin (HCC) ALBUMIN CREATININE RATIO, URINE Routine 06/01/2024 11:55 AM CDT Type 2 diabetes mellitus with hyperglycemia, with long-term current use of insulin (HCC) HEPATITIS PANEL, ACUTE Routine 09/22/2018 12:34 PM MACHINE TRACER from Last 3 Months or Most Recently Relevant to Health Maintenance Results * Imaging Shoulder, Hip, Knee Joint/Bursa INJ Left () (06/23/2025 11:59 AM CDT) Narrative [facility] - 06/23/2025 11:59 AM CDT The images from this study are not interpreted by Radiology. Please refer to the physician's procedure / OR operative note. us Jules Sheffield MD IMG PAIN MGMT PROCEDURES Final Result [facility] * POCT glucose (06/19/2025 8:26 AM CDT) Glucose, POC 114 70 - 199 mg/dL Blood 06/19/2025 8:26 AM CDT 06/19/2025 8:26 AM CDT us Stephan Corrigan MD LAB POCT ORDERABLES - DEVICE Final Result Performing Organization Address [facility] Co de Phone Number [facility] [employer] [place] [address] * POCT glucose (06/19/2025 4:05 AM CDT) Glucose, POC 92 70 - 199 mg/dL Blood 06/19/2025 4:05 AM CDT 06/19/2025 4:05 AM CDT Stephan Corrigan MD LAB POCT ORDERABLES - DEVICE Final Result Performing Organization Address [facility] Co de Phone Number [facility] [employer] [place], [place] [address] * POCT glucose (06/18/2025 11:57 PM CDT) Glucose, POC 125 70 - 199 mg/dL Blood 06/18/2025 11:5 7 PM CDT 06/18/2025 11:57 PM CDT Stephan Corrigan MD LAB POCT ORDERABLES - DEVICE Final Result Performing Organization Address City/[facility] Co de Phone Number [facility] [employer] [address] * POCT glucose (06/18/2025 10:10 PM CDT) Glucose, POC 170 70 - 199 mg/dL Blood 06/18/2025 10:1 0 PM CDT 06/18/2025 10:10 PM CDT us Stephan Corrigan MD LAB POCT ORDERABLES - DEVICE Final Result Performing Organization Address [facility] Co de Phone Number [facility] [place] [address] * POCT glucose (06/18/2025 4:59 PM CDT) Glucose, POC 77 70 - 199 mg/dL Blood 06/18/2025 4:59 PM CDT 06/18/2025 4:59 PM CDT us Donovan Zhu CRNA LAB POCT ORDERAB LES - DEVICE Final Result Performing Organization Address [facility] Co de Phone Number [facility] [place] [address] * POCT glucose (06/18/2025 4:17 PM CDT) Glucose, POC 78 70 - 199 mg/dL Blood 06/18/2025 4:17 PM CDT 06/18/2025 4:17 PM CDT us Stephan Corrigan MD LAB POCT ORDERABLES - DEVICE Final Result Performing Organization Address [facility] Co de Phone Number [facility] [employer] [address] * IR Angio Selective Internal Carotid Right (06/18/2025 4:16 PM CDT) Anatomical Region Laterality Modality Neck Right Radio Fluoroscop y 06/20/2025 9:40 PM CDT Impressions 06/22/2025 7:56 AM CDT 1. Angiogram demonstrated a fusiform dilatation of a distal right anterior cerebral artery callosomarginal branch which measures up to approximately 5 x 6 x 24 mm, possibly a fusiform aneurysm with partial thrombosis of the distal parent vessel with a very small artery originating from the distal end of the aneurysmal sac. 2. The right anterior cerebral artery microcatheter angiogram revealed a fusiform distal right anterior cerebral artery aneurysm arising from the pericallosal artery. From the tip of the aneurysm, a prominent posterior frontal branch of the right anterior cerebral artery was seen supplying the paracentral lobule/leg motor area on the right hemisphere. 3. At this point, coil embolization of the aneurysm was deemed too risky, as it would likely result in occlusion of this branch, causing a paracentral lobule infarct and contralateral lower limb weakness. Therefore, the decision was made to abort the coiling procedure. The findings were discussed with the patient, his family, and the neurosurgery team at the end of the procedure. Plan: 1. Admit to the 10-500 unit for overnight observation. 2. Discontinue DAPT Dictated by: Elias Sinclair M.D. The radiology attending physician has personally reviewed this study, and had reviewed and/or edited this written report and agrees with it. Electronically signed by: Stephan Corrigan M.D. Narrative 06/22/2025 7:56 AM CDT CEREBRAL ANGIOGRAM AND ATTEMPTED COIL EMBOLIZATION OF DISTAL RIGHT ANTERIOR CEREBRAL ARTERY ANEURYSM NAME: STU ANTUNEZ CLINICAL INDICATION: 70 years Male with Distal right anterior cerebral artery aneurysm presents for a cerebral angiography and coil embolization. PROCEDURE: Cerebral angiogram PROCEDURE: 1. Cerebral angiography: Right internal carotid artery, right anterior cerebral artery injections 2. 3D reconstructions 3. Ultrasound-guided vascular access 4. Hemostatic device placement ATTENDING PHYSICIAN: Stephan Corrigan MD. He was present for the entire procedure. ASSISTING PHYSICIANS: Elias Sinclair MD ANESTHESIA: General anesthesia DEVICES: 4 Burmese micropuncture kit: [place] Mandril wire, 4 Burmese transitional dilator, 21-gauge needle Ballast 088, 90 cm guide catheter 3mm J wire 0.035 Terumo Glidewire advantage 5 Burmese Penumbra Select Keller curve diagnostic catheter 6 Fr Mary flow plus 125 cm intermediate catheter Headway 17 microcatheter Synchro-2 microwire Angioseal MEDICATIONS: General anesthesia CONTRAST: Visipaque-270 50 mL ESTIMATED BLOOD LOSS: 20 mL COMPLICATIONS: None TECHNIQUE: Prior to the procedure, the technical aspects of the procedure, as well as potential risks and benefits, were explained to the patient. Specifically, the risks of intracranial or systemic hemorrhage, cerebral infarction, distal emboli, blindness, cranial nerve palsy, facial pain, anaphylaxis, renal failure, limb loss, , device malfunction, groin hematoma, arterial dissection/laceration, arterial pseudoaneurysm, and arteriovenous fistula were discussed. After informed consent was obtained, the patient was brought to the angiography suite, intubated, and prepped and draped in the usual fashion. Access to the vascular system was gained in the usual way by a 21G Micro-puncture needle of the right femoral artery under ultrasound guidance; images were saved to the PACS. The 088, 90 cm Ballast long sheath was placed into the common femoral artery and connected to a constant flush of heparinized saline. The guide catheter and diagnostic catheter were connected to a continual heparinized saline flush and introduced into the descending aorta as a system. Using fluoroscopic guidance, the diagnostic catheter was used to select the above listed arteries. Digital angiograms were performed of these vessels, centered over the head. 3D ROTATIONAL ANGIOGRAPHY OF THE RIGHT INTERNAL CAROTID ARTERY: Rotational angiography was also performed for better delineation of the arterial anatomy. Three-dimensional angiographic images were processed on an independent workstation, and volume-rendered three-dimensional images were produced. Following the diagnostic portion of the procedure, the 5 Burmese diagnostic catheter was removed. A coaxial assembly consisting of a Mary Flow Plus 6 Fr (070, 125 cm) intermediate catheter, a Headway 17 microcatheter, and a Synchro Select 0.014 microwire was then introduced. The ballast catheter was advanced and parked in the distal cervical segment of the right internal carotid artery, and the Mary microcatheter was navigated into the cavernous segment of the right internal carotid artery over the micro catheter and microwire under roadmap guidance. The microcatheter and microwire were then withdrawn. Magnified working projections were performed with contrast injections through the Mary catheter positioned in the right cavernous ICA. We then reintroduced the microcatheter and microwire through the Mary and navigated the Headway 0.017 microcatheter into the dome of the aneurysm over the microwire under roadmap guidance. The microwire was withdrawn, and a diagnostic angiogram was performed through the microcatheter positioned within the aneurysm dome. This microcatheter angiogram revealed a fusiform distal right anterior cerebral artery aneurysm. From the tip of the aneurysm, a prominent posterior frontal branch of the right anterior cerebral artery was seen supplying the paracentral lobule. Coil embolization of the aneurysm was deemed too risky, as it would likely result in occlusion of this branch, causing a paracentral lobule infarct and contralateral lower limb weakness. Therefore, the decision was made to abort the coiling procedure. A final cerebral angiogram was done in the AP and lateral projection which showed unchanged findings. An angiogram of the right common femoral artery was obtained; the artery was deemed appropriate for use of the closure device. The sheath was removed and hemostasis obtained by deployment of the Angioseal. A Tegaderm was then applied over the puncture site. COMPARISON: angiogram dated 05/17/2025 FINDINGS: RIGHT INTERNAL CAROTID ARTERY, CEREBRAL: There is a fusiform dilatation of a distal right anterior cerebral artery] callosomarginal branch which measures up to approximately 5 x 6 x 24 mm, possibly a fusiform aneurysm with partial thrombosis of the distal parent vessel with a very small artery questionably originating from the distal end of the aneurysmal sac. There is no evidence of or early draining vein. Cross-filling of the left A2 across the patent anterior communicating artery. . The posterior communicating artery is patent. 3D ROTATIONAL ANGIOGRAPHY OF THE RIGHT INTERNAL CAROTID ARTERY: 3D Rotational angiography with volume-rendered three-dimensional reconstruction on an independent workstation demonstrated a fusiform dilatation of a distal right anterior cerebral artery] callosomarginal branch which measures up to approximately 5 x 6 x 24 mm, possibly a fusiform aneurysm with partial thrombosis of the distal parent vessel with a very small artery originating from the distal end of the aneurysmal sac. RIGHT ANTERIOR CEREBRAL ARTERY, CEREBRAL: This microcatheter angiogram revealed a fusiform distal right anterior cerebral artery aneurysm arising from the pericallosal artery. From the tip of the aneurysm, a prominent posterior frontal branch of the right anterior cerebral artery was seen supplying the paracentral lobule/leg motor area on the right hemisphere. RIGHT FEMORAL ARTERY: No abnormalities are detected. This vessel is suitable for use of the closure device. COMPLICATIONS: None immediate. ESTIMATED BLOOD LOSS: 20 mL Procedure Note Stephan Corrigan MD - 06/22/2025 CEREBRAL ANGIOGRAM AND ATTEMPTED COIL EMBOLIZATION OF DISTAL RIGHT ANTERIOR CEREBRAL ARTERY ANEURYSM NAME: STU ANTUNEZ CLINICAL INDICATION: 70 years Male with Distal right anterior cerebral artery aneurysm presents for a cerebral angiography and coil embolization. PROCEDURE: Cerebral angiogram PROCEDURE: 1. Cerebral angiography: Right internal carotid artery, right anterior cerebral artery injections 2. 3D reconstructions 3. Ultrasound-guided vascular access 4. Hemostatic device placement ATTENDING PHYSICIAN: Stephan Corrigan MD. He was present for the entire procedure. ASSISTING PHYSICIANS: Elias Sinclair MD ANESTHESIA: General anesthesia DEVICES: 4 Burmese micropuncture kit: [place] Mandril wire, 4 Burmese transitional dilator, 21-gauge needle Ballast 088, 90 cm guide catheter 3mm J wire 0.035 Terumo Glidewire advantage 5 Burmese Penumbra Select Keller curve diagnostic catheter 6 Fr Mary flow plus 125 cm intermediate catheter Headway 17 microcatheter Synchro-2 microwire Angioseal MEDICATIONS: General anesthesia CONTRAST: Visipaque-270 50 mL ESTIMATED BLOOD LOSS: 20 mL COMPLICATIONS: None TECHNIQUE: Prior to the procedure, the technical aspects of the procedure, as well as potential risks and benefits, were explained to the patient. Specifically, the risks of intracranial or systemic hemorrhage, cerebral infarction, distal emboli, blindness, cranial nerve palsy, facial pain, anaphylaxis, renal failure, limb loss, , device malfunction, groin hematoma, arterial dissection/laceration, arterial pseudoaneurysm, and arteriovenous fistula were discussed. After informed consent was obtained, the patient was brought to the angiography suite, intubated, and prepped and draped in the usual fashion. Access to the vascular system was gained in the usual way by a 21G Micro-puncture needle of the right femoral artery under ultrasound guidance; images were saved to the PACS. The 088, 90 cm Ballast long sheath was placed into the common femoral artery and connected to a constant flush of heparinized saline. The guide catheter and diagnostic catheter were connected to a continual heparinized saline flush and introduced into the descending aorta as a system. Using fluoroscopic guidance, the diagnostic catheter was used to select the above listed arteries. Digital angiograms were performed of these vessels, centered over the head. 3D ROTATIONAL ANGIOGRAPHY OF THE RIGHT INTERNAL CAROTID ARTERY: Rotational angiography was also performed for better delineation of the arterial anatomy. Three-dimensional angiographic images were processed on an independent workstation, and volume-rendered three-dimensional images were produced. Following the diagnostic portion of the procedure, the 5 Burmese diagnostic catheter was removed. A coaxial assembly consisting of a Mary Flow Plus 6 Fr (070, 125 cm) intermediate catheter, a Headway 17 microcatheter, and a Synchro Select 0.014 microwire was then introduced. The ballast catheter was advanced and parked in the distal cervical segment of the right internal carotid artery, and the Mary microcatheter was navigated into the cavernous segment of the right internal carotid artery over the micro catheter and microwire under roadmap guidance. The microcatheter and microwire were then withdrawn. Magnified working projections were performed with contrast injections through the Mary catheter positioned in the right cavernous ICA. We then reintroduced the microcatheter and microwire through the Mary and navigated the Headway 0.017 microcatheter into the dome of the aneurysm over the microwire under roadmap guidance. The microwire was withdrawn, and a diagnostic angiogram was performed through the microcatheter positioned within the aneurysm dome. This microcatheter angiogram revealed a fusiform distal right anterior cerebral artery aneurysm. From the tip of the aneurysm, a prominent posterior frontal branch of the right anterior cerebral artery was seen supplying the paracentral lobule. Coil embolization of the aneurysm was deemed too risky, as it would likely result in occlusion of this branch, causing a paracentral lobule infarct and contralateral lower limb weakness. Therefore, the decision was made to abort the coiling procedure. A final cerebral angiogram was done in the AP and lateral projection which showed unchanged findings. An angiogram of the right common femoral artery was obtained; the artery was deemed appropriate for use of the closure device. The sheath was removed and hemostasis obtained by deployment of the Angioseal. A Tegaderm was then applied over the puncture site. COMPARISON: angiogram dated 05/17/2025 FINDINGS: RIGHT INTERNAL CAROTID ARTERY, CEREBRAL: There is a fusiform dilatation of a distal right anterior cerebral artery] callosomarginal branch which measures up to approximately 5 x 6 x 24 mm, possibly a fusiform aneurysm with partial thrombosis of the distal parent vessel with a very small artery questionably originating from the distal end of the aneurysmal sac. There is no evidence of or early draining vein. Cross-filling of the left A2 across the patent anterior communicating artery. . The posterior communicating artery is patent. 3D ROTATIONAL ANGIOGRAPHY OF THE RIGHT INTERNAL CAROTID ARTERY: 3D Rotational angiography with volume-rendered three-dimensional reconstruction on an independent workstation demonstrated a fusiform dilatation of a distal right anterior cerebral artery] callosomarginal branch which measures up to approximately 5 x 6 x 24 mm, possibly a fusiform aneurysm with partial thrombosis of the distal parent vessel with a very small artery originating from the distal end of the aneurysmal sac. RIGHT ANTERIOR CEREBRAL ARTERY, CEREBRAL: This microcatheter angiogram revealed a fusiform distal right anterior cerebral artery aneurysm arising from the pericallosal artery. From the tip of the aneurysm, a prominent posterior frontal branch of the right anterior cerebral artery was seen supplying the paracentral lobule/leg motor area on the right hemisphere. RIGHT FEMORAL ARTERY: No abnormalities are detected. This vessel is suitable for use of the closure device. COMPLICATIONS: None immediate. ESTIMATED BLOOD LOSS: 20 mL IMPRESSION: 1. Angiogram demonstrated a fusiform dilatation of a distal right anterior cerebral artery callosomarginal branch which measures up to approximately 5 x 6 x 24 mm, possibly a fusiform aneurysm with partial thrombosis of the distal parent vessel with a very small artery originating from the distal end of the aneurysmal sac. 2. The right anterior cerebral artery microcatheter angiogram revealed a fusiform distal right anterior cerebral artery aneurysm arising from the pericallosal artery. From the tip of the aneurysm, a prominent posterior frontal branch of the right anterior cerebral artery was seen supplying the paracentral lobule/leg motor area on the right hemisphere. 3. At this point, coil embolization of the aneurysm was deemed too risky, as it would likely result in occlusion of this branch, causing a paracentral lobule infarct and contralateral lower limb weakness. Therefore, the decision was made to abort the coiling procedure. The findings were discussed with the patient, his family, and the neurosurgery team at the end of the procedure. Plan: 1. Admit to the 10-500 unit for overnight observation. 2. Discontinue DAPT Dictated by: Elias Sinclair M.D. The radiology attending physician has personally reviewed this study, and had reviewed and/or edited this written report and agrees with it. Electronically signed by: Stephan Corrigan M.D. us Stephan Corrigan MD IM IR PROCEDURES Final Resul t * POCT Activated clotting time, low range (06/18/2025 3:27 PM CDT) [facility] Signature ACT 129 123 - 168 sec POC Device Number [id number] [facility] Blood 06/18/2025 3:27 PM CDT 06/18/2025 3:27 PM CDT us Donovan Zhu REIKI PRACTITIONER LAB POCT ORDERAB LES - DEVICE Final Result Performing Organization Address City/[facility] Co de Phone Number JEN[facility] Department [place] [address] * CA AN ELECTIVE ENDOTRACHEAL AIRWAY, CA AN PROCEDURE PLACEHOLDER (06/18/2025 2:49 PM CDT) Narrative Donovan Zhu CRNA - 06/18/2025 2:49 PM CDT Donovan Zhu CRNA 06/18/2025 2:50 PM Airway Patient location: OR Urgency: elective Indications for airway management: anesthesia and airway protection Difficult airway: no Staff: Supervising provider: Miguel Garcia MD Placed by: REIKI PRACTITIONER: Donovan Zhu CRNA Emergent airway documentation: Risks and benefits discussed: yes Consent obtained: yes Consent given by: patient Airway prep: Preoxygenated: yes Patient position: sniffing Mask difficulty assessment: 0 - not attempted Spontaneous ventilation during airway: absent Sedation level during airway: GA Final airway details: Final airway type: endotracheal airway Tube type: ETT ETT size: 8.0 mm Cuffed: yes Technique used for successful ETT placement: video laryngoscopy Insertion site: oral Blade type: Adrianna Video blade type: Lacy Blade size: 4 Cormack-Lehane (video): grade I - full view of glottis Cuff inflated with: air ETT to lips: 24 cm Placement verified by: auscultation and CO2 detection Airway secured with: silk tape Number of attempts: 1 Miguel Garcia MD ANESTHESIA ORDERABLES Fi nal Result * POCT glucose (06/18/2025 1:04 PM CDT) Glucose, POC 90 70 - 199 mg/dL Blood 06/18/2025 1:04 PM CDT 06/18/2025 1:04 PM CDT us Donovan Zhu REIKI PRACTITIONER LAB POCT ORDERAB LES - DEVICE Final Result Performing Organization Address City/[facility]/ZIP Co de Phone Number [facility] [place] [address] * eGFR (06/11/2025 10:05 AM CDT) eGFR 68 >=60 mL/min/1. 73 m2 Comment: Interpretive Data Reference Interval Normal >/= 90 mL/min/1.73m2 Mildly decreased* 60 - 89 mL/min/1.73m2 Mildly to moderately decreased 45 - 59 mL/min/1.73m2 Moderately to severely decreased 30 - 44 mL/min/1.73m2 Severely decreased 15 - 29 mL/min/1.73m2 Kidney Failure < 15 mL/min/1.73m2 *Relative to young adult level Estimated glomerular filtration rate is determined by the 2020 CKD-EPI equation recommended by the National Kid[employer] (A Unifying Approach to GFR Estimation: Recommendations of the NKF-ASK Task Force on Reassessing the Inclusion of Race in Diagnosing Kidney Disease, JASN 2020). The CKD-EPI equation should not be used for patients with unstable renal function and has not been validated in children and those over 70. Current interpretive data was last reviewed 2021. Blood 06/11/2025 10:0 5 AM CDT 06/11/2025 10:21 AM CDT us Stephan Corrigan MD LAB BLOOD ORDERABLES Final Re sult [facility] [place] [address] * Differential, auto (06/11/2025 10:05 AM CDT) Neutrophil abs 4.98 1.50 - 6.50 K/cumm Imm gran abs 0.01 0.00 - 0.10 K/cumm [facility] Lymphocyte abs 1.09 0.80 - 3.30 K/cumm [facility] Monocyte abs 0.80 0.20 - 0.80 K/cumm [facility] Eosinophil abs 0.20 0.00 - 0.50 K/cumm [facility] Basophil abs 0.02 0.00 - 0.10 K/cumm [facility] Neutrophil pct 70.1 % [facility] Comment: Interpretive Data Percent cell count reference ranges are not reported, since discordance with absolute values may lead to misinterpretation of CBC data. Current Interpretive Data was last revised on 2017. Imm gran pct 0.1 % [facility] Comment: Interpretive Data Percent cell count reference ranges are not reported, since discordance with absolute values may lead to misinterpretation of CBC data. Current Interpretive Data was last revised on 2017. Lymphocyte pct 15.4 % [facility] Comment: Interpretive Data Percent cell count reference ranges are not reported, since discordance with absolute values may lead to misinterpretation of CBC data. Current Interpretive Data was last revised on 2017. Monocyte pct 11.3 % [facility] Comment: Interpretive Data Percent cell count reference ranges are not reported, since discordance with absolute values may lead to misinterpretation of CBC data. Current Interpretive Data was last revised on 2017. Eosinophil pct 2.8 % [facility] Comment: Interpretive Data Percent cell count reference ranges are not reported, since discordance with absolute values may lead to misinterpretation of CBC data. Current Interpretive Data was last revised on 2017. Basophil pct 0.3 % [facility] Comment: Interpretive Data Percent cell count reference ranges are not reported, since discordance with absolute values may lead to misinterpretation of CBC data. Current Interpretive Data was last revised on 2017. Blood 06/11/2025 10:0 5 AM CDT 06/11/2025 10:17 AM CDT us Stephan Corrigan MD LAB BLOOD ORDERABLES Final Re sult [facility] Department [place] [address] * VerifyNow clopidogrel (06/11/2025 10:05 AM CDT) [facility] clopidogrel 96 PRU Comment: Interpretive Data Reference interval from adults not taking Plavix is 169-356 PRU. Output is reported in Plavix reaction units (PRU). A lower PRU indicates a more complete inhibition of P2Y12 ADP receptor by drugs such as clopidogrel or prasugrel. There is no consensus regarding a cut-off value for PRU when assessing patients' sensitivity to ADP P2Y12 receptor inhibitors. Clinicians should use this information based on their interpretation of currently available evidence to individualize patient management decisions. Conditions that may produce falsely low PRU results include anemia (Hct <29%) and thrombocytopenia (platelet count <90,000/mcL). Platelet responsiveness to Plavix should not be performed within 48 hours of treatment with GPIIbIIIa inhibitors etifibatide (Integrilin) or tirofiban (Aggrastat) or within 2 weeks of treatment with abciximab (Reopro). Current interpretive data was last revised on 2017. Blood 06/11/2025 10:0 5 AM CDT 06/11/2025 10:48 AM CDT Narrative [facility] - 06/11/2025 11:20 AM CDT CPAP ORDER Stephan Corrigan MD LAB BLOOD ORDERABLES Final Re sult Performing Organization Address City/[facility]/ZIP Co de Phone Number [facility] Department [place] [address] * CPAP aPTT algorithm (06/11/2025 10:05 AM CDT) aPTT 28 26 - 38 sec Comment: Interpretive Data Heparin therapeutic range: 66.0 - 100.0 seconds. Range based on correlation with therapeutic heparin activity range of 0.3 - 0.7 Units/mL. Current interpretive data was last revised on 2023. Blood 06/11/2025 10:0 5 AM CDT 06/11/2025 10:17 AM CDT Alanis Sharp NP LAB BLOOD ORDERABLES F inal Result Performing Organization Address City/[facility]/ZIP Co de Phone Number [facility] Department [place] [address] * (ABNORMAL) CBC with auto differential (06/11/2025 10:05 AM CDT) [facility] WBC 7.10 3.80 - 9.90 K/cumm Hgb 14.9 13.0 - 17.5 g/dL [facility] Hct 42.6 38.9 - 50.3 % [facility] Plt 191 150 - 400 K/cumm [facility] MPV 9.0(L) 9.1 - 12.3 fL [facility] RBC 4.83 4.30 - 5.80 M/cumm [facility] MCV 88.2 81.3 - 96.4 fL [facility] MCH 30.8 27.1 - 33.3 pg [facility] MCHC 35.0 32.3 - 35.7 g/dL [facility] RDW CV 13.7 11.1 - 14.9 % [facility] RDW SD 44.0 35.7 - 48.1 fL [facility] NRBC abs 0.00 0.00 - 0.01 K/cumm [facility] Blood 06/11/2025 10:0 5 AM CDT 06/11/2025 10:17 AM CDT Narrative [facility] - 06/11/2025 10:28 AM CDT CPAP ORDER Stephan Corrigan MD LAB BLOOD ORDERABLES Final Re sult [facility] Department [place] [address] * Protime-INR (06/11/2025 10:05 AM CDT) [facility] PT 12.5 10.2 - 13.5 sec INR 1.11 0.90 - 1.20 [facility] Comment: Interpretive data Oral anticoagulant therapeutic ranges: Venous thromboembolism prophylaxis or treatment: 2.0-3.0 CARDIOLOGY Standard range: 2.0-3.0 High-intensity range: 2.5-3.5 Refer to indication-specific guidelines for appropriate target ranges for prosthetic heart valve replacement. Current interpretive data was last revised on 2019. Blood 06/11/2025 10:0 5 AM CDT 06/11/2025 10:17 AM CDT Narrative [facility] - 06/11/2025 10:46 AM CDT CPAP ORDER Stephan Corrigan MD LAB BLOOD ORDERABLES Final Re sult [facility] Department [place] [address] * (ABNORMAL) Basic metabolic panel (06/11/2025 10:05 AM CDT) Sodium 143 135 - 145 mmol/L Potassium, pl 4.2 3.3 - 4.9 mmol/L [facility] Chloride 104 97 - 110 mmol/L [facility] CO2 33(H) 22 - 32 mmol/L [facility] Anion gap 6 2 - 15 mmol/L [facility] BUN 17 6 - 25 mg/dL [facility] Creatinine 1.15 0.80 - 1.30 mg/dL [facility] Glucose 115 70 - 199 mg/dL [facility] Comment: Interpretive Data Fasting glucose >/= 126 mg/dl is diagnostic for diabetes. Fasting is defined as no caloric intake for at least 8 hours. Fasting glucose between 100 mg/dl to 125 mg/dl is diagnostic of prediabetes. In a patient with classic symptoms of hyperglycemia or hyperglycemic crisis, a random glucose >/= 200 mg/dl is diagnostic for diabetes. In the absence of unequivocal hyperglycemia, results should be confirmed by repeat testing. The classification and Diagnosis of Diabetes Diabetes Care 2021; 46: S19-S40. Current interpretive data was last revised 2022. Calcium 9.2 8.5 - 10.3 mg/dL [facility] Blood 06/11/2025 10:0 5 AM CDT 06/11/2025 10:17 AM CDT Narrative [facility] - 06/11/2025 10:50 AM CDT CPAP ORDER Has the patient fasted?->No us Stephan Corrigan MD LAB BLOOD ORDERABLES Final Re sult [facility] Department [place] [address] * ECG 12 lead (06/11/2025 9:38 AM CDT) Ventricular Rate EKG/Min 61 BPM [facility] Atrial Rate [address] [facility] CA-Interval (MSEC) 192 ms [facility] QRS-Interval (MSEC) 114 ms [facility] QT-Interval (MSEC) 448 ms [facility] QTc [address] [facility] P [place] [address] [facility] R [place] -[address] [facility] T [place] [address] [facility] Diagnosis Sinus rhythm with occasional Premature ventricular complexes Left axis deviation Abnormal ECG When compared with ECG of 17-JUL-2021 19:52, PREVIOUS ECG IS PRESENT Confirmed by Karey Vides MD ([id number]) on 06/14/2025 5:44:[address] [facility] 06/11/2025 9:38 AM CDT 06/14/2025 5:44 AM CDT us Alanis Sharp NP ECG ORDERABLES Final Result Performing Organization Address City/[facility]/ZIP Co de Phone Number [facility] * (ABNORMAL) POCT hemoglobin A1c (05/19/2025 12:02 PM CDT) Hemoglobin A1C, POC 5.7(A) 4.0 - 5.6 % Blood 05/19/2025 12:0 2 PM CDT us Ekta Marin MD POINT OF CARE TEST ORDERABLES Final Result * IR Angio Selective Carotid POLICE SURGEON Right (05/17/2025 10:48 AM CDT) Anatomical Region Laterality Modality Neck Right Radio Fluoroscop y 05/18/2025 4:05 PM CDT Impressions 05/18/2025 9:38 PM CDT Fusiform vascular dilatation of a distal right anterior cerebral artery] callosomarginal branch which measures up to approximately 5 x 6 x 24 mm, possibly a fusiform aneurysm with partial thrombosis of the distal parent vessel with a very small artery questionably originating from the distal end of the aneurysmal sac These results were discussed with the patient after the conclusion of the procedure. Dictated by: Shahid Lyman M.D. The radiology attending physician has personally reviewed this study, and had reviewed and/or edited this written report and agrees with it. Electronically signed by: Stephan Corrigan M.D. Narrative 05/18/2025 9:38 PM CDT DIAGNOSTIC CEREBRAL ANGIOGRAM CLINICAL INDICATION: Patient is a 76-year-old man with history of a previously treated right frontal arteriovenous malformation status post proton beam therapy 25 years prior now presenting with follow-up MRA demonstrating right pericallosal aneurysm PROCEDURE: 1. Cerebral angiography: Left common carotid artery cervical, left internal carotid artery cerebral, left external carotid artery cerebral, right common carotid artery cervical, right internal carotid artery cerebral, right external carotid artery cerebral, right vertebral artery cerebral injections 2. 3D reconstructions of the right internal carotid artery cerebral vasculature 3. Ultrasound-guided vascular access 4. Hemostatic device placement ATTENDING SURGEON: Stephan Corrigan MD. He was present for the entire procedure. ASSISTING SURGEON(S): Shahid Lyman MD ANESTHESIA: Local in the right forearm with 1% Lidocaine. Conscious sedation with Versed and Fentanyl was given by the nurse under the supervision of the attending interventional neuroradiologist. Pre-, intra-, and post-conscious sedation monitoring records are available in the chart. Total monitored sedation time was 45 minutes. MEDICATIONS: Local anesthesia: 1% Lidocaine SQ Sedation and Analgesia: Versed IV, Fentanyl IV Radial artery cocktail: Verapamil (2.5 mg), Nitroglycerin (200 mcg), and Heparin (3000 units) MATERIALS: 21-gauge needle 5 Burmese Merit Prelude IDeal sheath 23cm and mini guidewire 5 Burmese Gonzalez 2 Alderson catheter Terumo glidewire TR Band CONTRAST: Visipaque 270 125 mL TECHNIQUE: Prior to the procedure, the technical aspects of the procedure, as well as benefits, potential risks and alternate options, were explained to the patient. Specifically, the risks of cerebral infarction, hemorrhage, weakness, paralysis, sensory changes, vision decline/blindness, cranial nerve palsy, facial pain, anaphylaxis, renal failure, access site hematoma, arterial dissection, arterial pseudoaneurysm, arteriovenous fistula were discussed with the patient in person. Informed consent was obtained. After informed consent was obtained, the patient was brought to the angiography suite. Moderate sedation (intravenous fentanyl and midazolam) was administered under the direction of the attending physician with continuous monitoring by a trained nurse specialist independent of those performing the procedure. Total monitored sedation time was 45 minutes. The right forearm was prepped and draped in the usual fashion. Access to the vascular system was gained in the usual way by a single-wall puncture of the right radial artery at the wrist under ultrasound guidance. Ultrasound images demonstrated a patent vessel and were stored to PACS.. The 5 Burmese Merit Prelude IDeal sheath 23cm was then introduced into the right radial artery over the mini guidewire. A cocktail of Verapamil (2.5 mg), Nitroglycerin (200 mcg), and Heparin (3000 units) was slowly injected into the right radial artery through the sheath over several minutes, with close monitoring of blood pressure. A Terumo Glidewire and 5 Burmese Gonzalez 2 Alderson catheter were advanced into the aortic arch under fluoroscopic visualization and the Gonzalez catheter was formed over the aortic arch. Using fluoroscopic guidance, selective catheterization of the above mentioned vessels and digital angiograms were performed, centered over the head and neck with AP, lateral, and oblique views. 3D ROTATIONAL ANGIOGRAPHY OF THE RIGHT INTERNAL CAROTID ARTERY: Rotational angiography was also performed from the guide catheter in the right internal carotid artery for better delineation of the right pericallosal artery aneurysm. Three-dimensional angiographic images were processed on an independent workstation, and volume-rendered three-dimensional images were produced and reviewed by the attending physician. The catheter was then removed. The sheath was removed. Patent hemostasis was achieved by placement of a TR band. There were no immediate complications related to the procedure. FINDINGS: RIGHT COMMON CAROTID ARTERY, CERVICAL: The bifurcation is smooth, without irregularity, calcification, or stenosis with respect to the distal right internal carotid artery. There is normal opacification of right cervical external carotid artery branches. RIGHT INTERNAL CAROTID ARTERY, CEREBRAL: There is a fusiform vascular dilatation of a distal right anterior cerebral artery] callosomarginal branch which measures up to approximately 5 x 6 x 24 mm, possibly a fusiform aneurysm with partial thrombosis of the distal parent vessel with a very small artery questionably originating from the distal end of the aneurysmal sac. There is no evidence of or early draining vein. Cross-filling of the left A2 across the patent anterior communicating artery. . The posterior communicating artery is patent. 3D ROTATIONAL ANGIOGRAPHY OF THE RIGHT INTERNAL CAROTID ARTERY: 3D Rotational angiography with volume-rendered three-dimensional reconstruction on an independent workstation demonstrated a fusiform vascular dilatation of a distal right anterior cerebral artery] callosomarginal branch which measures up to approximately 5 x 6 x 24 mm, possibly a fusiform aneurysm with partial thrombosis of the distal parent vessel with a very small artery questionably originating from the distal end of the aneurysmal sac. RIGHT EXTERNAL CAROTID ARTERY, CEREBRAL: There is no evidence of intracranial early venous drainage. LEFT COMMON CAROTID ARTERY, CERVICAL: The bifurcation is smooth, without irregularity, calcification, or stenosis with respect to the distal left internal carotid artery. There is normal opacification of left cervical external carotid artery branches. LEFT INTERNAL CAROTID ARTERY, CEREBRAL: There is no evidence of aneurysm, focal stenosis, or early draining vein. There is cross-filling of the right A2 and distal vasculature across the patent anterior communicating artery. . The posterior communicating artery is patent. LEFT EXTERNAL CAROTID ARTERY, CEREBRAL: There is no evidence of intracranial early venous drainage. RIGHT VERTEBRAL ARTERY, CEREBRAL: There is no evidence of aneurysm, focal stenosis, or early draining vein. There was good contrast reflux down the left vertebral artery. Both posterior inferior cerebellar arteries demonstrate normal takeoffs from the distal ipsilateral vertebral arteries. Both P1 posterior cerebral arteries are patent. The posterior inferior cerebellar arteries are unremarkable. Minimal ectasia of the left V4 vertebral artery. COMPLICATIONS: There were no immediate complications. Procedure Note Stephan Corrigan MD - 05/18/2025 DIAGNOSTIC CEREBRAL ANGIOGRAM CLINICAL INDICATION: Patient is a 76-year-old man with history of a previously treated right frontal arteriovenous malformation status post proton beam therapy 25 years prior now presenting with follow-up MRA demonstrating right pericallosal aneurysm PROCEDURE: 1. Cerebral angiography: Left common carotid artery cervical, left internal carotid artery cerebral, left external carotid artery cerebral, right common carotid artery cervical, right internal carotid artery cerebral, right external carotid artery cerebral, right vertebral artery cerebral injections 2. 3D reconstructions of the right internal carotid artery cerebral vasculature 3. Ultrasound-guided vascular access 4. Hemostatic device placement ATTENDING SURGEON: Stephan Corrigan MD. He was present for the entire procedure. ASSISTING SURGEON(S): Shahid Lyman MD ANESTHESIA: Local in the right forearm with 1% Lidocaine. Conscious sedation with Versed and Fentanyl was given by the nurse under the supervision of the attending interventional neuroradiologist. Pre-, intra-, and post-conscious sedation monitoring records are available in the chart. Total monitored sedation time was 45 minutes. MEDICATIONS: Local anesthesia: 1% Lidocaine SQ Sedation and Analgesia: Versed IV, Fentanyl IV Radial artery cocktail: Verapamil (2.5 mg), Nitroglycerin (200 mcg), and Heparin (3000 units) MATERIALS: 21-gauge needle 5 Burmese Merit Prelude IDeal sheath 23cm and mini guidewire 5 Burmese Gonzalez 2 Alderson catheter Terumo glidewire TR Band CONTRAST: Visipaque 270 125 mL TECHNIQUE: Prior to the procedure, the technical aspects of the procedure, as well as benefits, potential risks and alternate options, were explained to the patient. Specifically, the risks of cerebral infarction, hemorrhage, weakness, paralysis, sensory changes, vision decline/blindness, cranial nerve palsy, facial pain, anaphylaxis, renal failure, access site hematoma, arterial dissection, arterial pseudoaneurysm, arteriovenous fistula were discussed with the patient in person. Informed consent was obtained. After informed consent was obtained, the patient was brought to the angiography suite. Moderate sedation (intravenous fentanyl and midazolam) was administered under the direction of the attending physician with continuous monitoring by a trained nurse specialist independent of those performing the procedure. Total monitored sedation time was 45 minutes. The right forearm was prepped and draped in the usual fashion. Access to the vascular system was gained in the usual way by a single-wall puncture of the right radial artery at the wrist under ultrasound guidance. Ultrasound images demonstrated a patent vessel and were stored to PACS.. The 5 Burmese Merit Prelude IDeal sheath 23cm was then introduced into the right radial artery over the mini guidewire. A cocktail of Verapamil (2.5 mg), Nitroglycerin (200 mcg), and Heparin (3000 units) was slowly injected into the right radial artery through the sheath over several minutes, with close monitoring of blood pressure. A Terumo Glidewire and 5 Burmese Gonzalez 2 Alderson catheter were advanced into the aortic arch under fluoroscopic visualization and the Gonzalez catheter was formed over the aortic arch. Using fluoroscopic guidance, selective catheterization of the above mentioned vessels and digital angiograms were performed, centered over the head and neck with AP, lateral, and oblique views. 3D ROTATIONAL ANGIOGRAPHY OF THE RIGHT INTERNAL CAROTID ARTERY: Rotational angiography was also performed from the guide catheter in the right internal carotid artery for better delineation of the right pericallosal artery aneurysm. Three-dimensional angiographic images were processed on an independent workstation, and volume-rendered three-dimensional images were produced and reviewed by the attending physician. The catheter was then removed. The sheath was removed. Patent hemostasis was achieved by placement of a TR band. There were no immediate complications related to the procedure. FINDINGS: RIGHT COMMON CAROTID ARTERY, CERVICAL: The bifurcation is smooth, without irregularity, calcification, or stenosis with respect to the distal right internal carotid artery. There is normal opacification of right cervical external carotid artery branches. RIGHT INTERNAL CAROTID ARTERY, CEREBRAL: There is a fusiform vascular dilatation of a distal right anterior cerebral artery] callosomarginal branch which measures up to approximately 5 x 6 x 24 mm, possibly a fusiform aneurysm with partial thrombosis of the distal parent vessel with a very small artery questionably originating from the distal end of the aneurysmal sac. There is no evidence of or early draining vein. Cross-filling of the left A2 across the patent anterior communicating artery. . The posterior communicating artery is patent. 3D ROTATIONAL ANGIOGRAPHY OF THE RIGHT INTERNAL CAROTID ARTERY: 3D Rotational angiography with volume-rendered three-dimensional reconstruction on an independent workstation demonstrated a fusiform vascular dilatation of a distal right anterior cerebral artery] callosomarginal branch which measures up to approximately 5 x 6 x 24 mm, possibly a fusiform aneurysm with partial thrombosis of the distal parent vessel with a very small artery questionably originating from the distal end of the aneurysmal sac. RIGHT EXTERNAL CAROTID ARTERY, CEREBRAL: There is no evidence of intracranial early venous drainage. LEFT COMMON CAROTID ARTERY, CERVICAL: The bifurcation is smooth, without irregularity, calcification, or stenosis with respect to the distal left internal carotid artery. There is normal opacification of left cervical external carotid artery branches. LEFT INTERNAL CAROTID ARTERY, CEREBRAL: There is no evidence of aneurysm, focal stenosis, or early draining vein. There is cross-filling of the right A2 and distal vasculature across the patent anterior communicating artery. . The posterior communicating artery is patent. LEFT EXTERNAL CAROTID ARTERY, CEREBRAL: There is no evidence of intracranial early venous drainage. RIGHT VERTEBRAL ARTERY, CEREBRAL: There is no evidence of aneurysm, focal stenosis, or early draining vein. There was good contrast reflux down the left vertebral artery. Both posterior inferior cerebellar arteries demonstrate normal takeoffs from the distal ipsilateral vertebral arteries. Both P1 posterior cerebral arteries are patent. The posterior inferior cerebellar arteries are unremarkable. Minimal ectasia of the left V4 vertebral artery. COMPLICATIONS: There were no immediate complications. IMPRESSION: Fusiform vascular dilatation of a distal right anterior cerebral artery] callosomarginal branch which measures up to approximately 5 x 6 x 24 mm, possibly a fusiform aneurysm with partial thrombosis of the distal parent vessel with a very small artery questionably originating from the distal end of the aneurysmal sac These results were discussed with the patient after the conclusion of the procedure. Dictated by: Shahid Lyman M.D. The radiology attending physician has personally reviewed this study, and had reviewed and/or edited this written report and agrees with it. Electronically signed by: Stephan Corrigan M.D. Stephan Corrigan MD IMG IR PROCEDURES Final Resul t * Albumin Creatinine Ratio, Urine (06/01/2024 11:55 AM CDT) Albumin Ur <12.0 mg/L Comment: Interpretive Data No reference range established. Current interpretive data was last revised 2019. Creatinine Ur 49.0 mg/dL [facility] Comment: Interpretive Data No reference range established. Current interpretive data was last revised 2019. Albumin Creatinine Ratio, Ur <24 1 - 29 mg/g [facility] Urine 06/01/2024 11:5 5 AM CDT 06/01/2024 12:40 PM CDT Anne Moran NP LAB URINE ORDERABLES Alee landaverde Result [facility] Department [place] [address] * (ABNORMAL) Lipid panel (06/01/2024 11:55 AM [...] revised on 2018. Triglycerides 162(H) <=149 mg/dL [facility] Comment: Interpretive Data Ages < or [...] revised on 2018. HDL 39(L) >=40 mg/dL [facility] Comment: Interpretive Data Ages < or [...] 2018. LDL, calculated 97 <=129 mg/dL [facility] Comment: Interpretive Data Ages < or [...] revised on 2024. Non-HDL Cholesterol 125 mg/dL [facility] Comment: Interpretive Data Ages < or [...] last revised on 2018. Chol/HDL ratio 4 [facility] Blood 06/01/2024 11:5 5 AM CDT 06/01/2024 12:39 PM CDT Narrative [facility] - 06/01/2024 1:59 PM CDT These lab test should be done fasting. This means do not eat or drink for at least 12 hours prior to getting your blood drawn. us Anne Moran NP LAB BLOOD ORDERABLES Alee landaverde Result [facility] Department [place] [address] * Hepatitis panel, acute (09/22/2018 12:34 PM MACHINE TRACER) Pathologist [facility] HepBsAg NONREACT NONREACTIVE Comment: Siemens CentaurXP using DANA (chemiluminescent immunoassay) technology. NONREACTIVE: IgM antibodies to Hepatitis B Surface antigen not detected. REACTIVE: IgM antibodies to Hepatitis B Surface antigen detected. Reactive results will be confirmed by neutralization testing. HBsAb qn < 3.10 mIU/mL 09/22/2018 2:13 PM MACHINE TRACER [facility] HISTORICAL RESULTS Comment: Siemens CentaurXP using DANA (chemiluminescent immunoassay) technology. 9.99 IU/L or less.....NONREACTIVE: IgM antibodies to Hepatitis B Surface antibody are not detected. 10.00 IU/L or greater..REACTIVE: IgM antibodies to Hepatitis B Surface antibody are detected. Hep B core IgM NONREACT NONREACTIVE 9 2:52 PM MACHINE TRACER [facility] [employer] HISTORICAL RESULTS Comment: Siemens CentaurXP using DANA (chemiluminescent immunoassay) technology. NONREACTIVE: IgM antibodies to Hepatitis B Core antigen not detected. EQUIVOCAL: IgM antibodies to Hepatitis B Core antigen may or may not be present. Obtain a new specimen and retest. REACTIVE: IgM antibodies to Hepatitis B Core antigen detected. Hep A IgM NONREACT NONREACTIVE 09/22/2018 2:53 PM [employer] [facility] HISTORICAL RESULTS Comment: Siemens CentaurXP using DANA (chemiluminescent immunoassay) technology. NONREACTIVE: IgM antibodies to Hepatitis A not detected. This does not exclude possibility of exposure to Hepatitis A or early acute infection. EQUIVOCAL:IgM antibodies to Hepatitis A may or may not be present. Suggest recollection and retest. REACTIVE: Antibodies to Hepatitis A detected. Hep C Ab NONREACT NONREACTIVE 09/22/2018 2:51 PM MACHINE TRACER [facility] [employer] [facility] HISTORICAL RESULTS Comment: Siemens CentaurXP using DANA [...] real-time PCR method. 09/22/2018 12:3 4 PM MACHINE TRACER 09/22/2018 12:51 PM MACHINE TRACER Narrative [facility]ULTS - 09/22/2018 2:51 PM MACHINE TRACER FAX RESULTS TO [id number] PTINR WAS ADDED ON 09/23/18 PER Delia INFANTE us Sarath Rascon MD LAB MICROBIOLOGY - GENERAL OR DERABLES Final Result [facility] HISTORICAL RESULTS from Last 3 Months or Most Recently Relevant to Health Maintenance Insurance MEDICARE [facility] MEDICARE [facility] ACCESS MEDICARE BLUE CROSS MEDICARE SUPPLEMENT MEDICARE BLUE CROSS MEDICARE SUPPLEMENT MEDICARE Advance Directives For more information, please contact: [phone] * Full Code (Latest Code Status on File) Date Activated Date Inactivated Comments 06/18/2025 12:31 PM 06/19/2025 5:39 PM * Full Code Date Activated Date Inactivated Comments 05/17/2025 11:04 AM 05/18/2025 5:16 AM * Full Code Date Activated Date Inactivated Comments 05/17/2025 11:04 AM 05/17/2025 11:04 AM * Full Code Date Activated Date Inactivated Comments 11/27/2023 6:26 PM 11/30/2023 6:44 PM * Full Code Date Activated Date Inactivated Comments 10/31/2020 11:16 AM 11/01/2020 3:58 PM Care Teams Supplier Specialist Relationship Specialty Start Date End Date Jacky Jenkins MD PCP - General 01/01/13 Julia Orellana, PT [address] [facility] [email or web address] [address] [place] [address] Physical Therapist Physical Therapy 10/16/20 Garth Fraga MD [address] [facility] [place] [address] [employer] Umpire Dermatology 09/15/21 Maryann Herndon MD [address] [place] [address] Consulting Physician Neurology 04/04/22 Brien Fine MD [address] [place] [address] Skein Drier Transplant 04/23/23 Vilma Yang, RN [address] [facility] [address] [place] [address] Heart Failure Coordinator Funding Analyst 04/23/23 Rina Swenson OD [address] [place] [address] Optometry 04/29/23 José Antonio Skinner MD [address] [place] [address] Consulting Physician Urology 12/11/23 Shereen Najera MD [address] [facility] [address] [facility] [address] [place] [address] Ophthalmology 03/03/25 Alanis Ospina OD [address] [facility], [address] [place] [address] Optometry 03/03/25
--- OUTSIDE RECORDS SUMMARY | 2025-07-19 10:23 | XMS_ITS ---
Author Organization [facility] Address [address] [place] [address] Care Team Providers Care Glass Bulb Machine Adjuster Name Role Phone Jacky Jenkins MD Primary Care Prov ider Julia Orellana PT Unavailable [phone] Garth Fraga MD Unavailable [phone] Maryann Herndon MD Unavailable Brien Fine MD Unavailable [phone] Vilma Yang RN Unavailable [phone] Rina Swenson OD Unavailable [phone] José Antonio Skinner MD Unavailable [phone] Shereen Najera MD Unavailable [phone] Alanis Ospina OD Unavailable Active Problems Problem Noted Date Diagnosed Date PVD (posterior vitreous detachment), left 2024 Assessment & Plan (07/14/2025 11:58 AM STOCK PULLER): Posterior vitreous detachment noted without presence of [...] 01/27/2025 Assessment & Plan (07/14/2025 11:58 AM STOCK PULLER): Stable PVD, monitor. Assessment & Plan (03/10/2025 12:14 PM CDT): +stable PVD OD, no Independence's -inferior hemorrhage resolved OD -s/s RD/RT discussed [...] (cyl)) Assessment & Plan (07/14/2025 11:59 AM STOCK PULLER): Monitor Assessment & Plan (03/10/2025 12:14 PM [...] compresses Assessment & Plan (10/30/2024 9:46 AM STOCK PULLER): 07/13/2024- Extraction Cataract - Phacoemulsification And Lens [...] compresses Assessment & Plan (10/12/2024 12:46 PM STOCK PULLER): Post op day 1s/p Extraction Cataract - [...] concerns Assessment & Plan (09/21/2024 11:09 AM STOCK PULLER): Status-post Extraction Cataract - Phacoemulsification And Lens Implant Left Eye - Left 07/13/2024 Pt notes vision may be sl better than prior to surgery, but feels not clear because of right eye (OD). BCVA 20/20. Well healed. Ok to proceed with cataract extraction (CE) right eye (OD). Assessment & Plan (07/24/2024 10:28 AM STOCK PULLER): Status-post Extraction Cataract - Phacoemulsification And Lens [...] visit Assessment & Plan (07/13/2024 3:31 PM STOCK PULLER): Post op day 1s/p Extraction Cataract - [...] (04/20/2021): Added automatically from request for surgery [id number] Diastolic dysfunction without heart failure 10/10 ISMAEL [...] (09/27/2020): Added automatically from request for surgery [id number] Cancer of brain treated with radiation therapy [...] Automatic Entry Manual Entr y Fluoro Time 28.515 minutes 28.515 minutes 0 minutes Air kerma at the reference point (Ka,r) 3,671.06 mGy 3 ,671.06 mGy 0 mGy DLP 1,656 mGycm 1,656 [...] time Assessment & Plan (09/21/2024 11:08 AM STOCK PULLER): Patient complains of significant symptoms and problems [...] view Assessment & Plan (07/24/2024 10:27 AM STOCK PULLER): Likely vis sig, but want patient to [...] (04/19/2022): Added automatically from request for surgery [id number]
--- OUTSIDE RECORDS SUMMARY | 2025-07-19 10:23 | XMS_ITS | Clinical Summary ---
Author Organization [facility] Address [address] [place] [address] Care Team Providers Care Outdoor Pursuits Instructor Name Role Phone Jacky Jenkins MD Primary Care Provider [phone] Social History Tobacco Use Types Packs/Day Years [...] of 2) 2003 COVID-19 Vaccine ( - 2024-2 6 season) 2025 Influenza Adult (#1) 2025 RSV Immunization or 60+ Years (1 - 1-dose 75+ series) 2028 Hepatitis A Vaccines Aged Out No long er eligible based on patient's age to complete this topic Meningococcal B Vaccine Aged Out No l onger eligible based on patient's age to complete this topic Meningococcal Vaccine Aged Out No radha nadir eligible based on patient's age to complete this topic RSV Immunizations Under 20 Months Aged Out No longer eligible based on patient's age to complete this topic Insurance Care Teams Outdoor Pursuits Instructor Relationship Specialty Start Date End Date Jacky Jenkins MD [address] [place] [address] PCP - General FAMILY PRACTICE 08/09/17
--- OUTSIDE RECORDS SUMMARY | 2025-07-19 10:23 | XMS_ITS | Clinical Summary ---
Author Organization [facility] [employer] Address [address] [facility] [place] [address] Care Team Providers Care Keno Dealer Name Role Phone Jacky Jenkins MD Primary Care Provider + Source Comments [facility],non-owned Affiliates and Associated Physician Practices is amultiple site organization consisting of ambulatory clinics and hospital sitesin [place], [place], [place] and [place]. This disclosure is being madepursuant to the Care Everywhere program and may not contain all information available regarding this patient. 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 Gender Identity Not on file Sexual Orientation Not on file Last Filed Vital Signs Vital Sign Reading Time Taken Comments Blood Pressure 128/94 10/11/2018 3:38 AM CONSTRUCTION AREA MANAGER Pulse 65 10/11/2018 3:38 AM CONSTRUCTION AREA MANAGER Temperature 36.6 C (97.8 F) 10/11/2018 3:38 AM CONSTRUCTION AREA MANAGER Respiratory Rate 16 10/11/2018 3:38 AM CONSTRUCTION AREA MANAGER Oxygen Saturation 93% 10/11/2018 3:38 AM CONSTRUCTION AREA MANAGER Inhaled Oxygen Concentration 40% 10/07/2018 9 :25 AM CONSTRUCTION AREA MANAGER Weight 112.6 kg (248 lb 3.8 oz) 10/09/2018 3:00 AM CONSTRUCTION AREA MANAGER Height 190.5 cm (6' 3) 10/09/2018 3:00 AM CONSTRUCTION AREA MANAGER Body Mass Index 31.03 10/09/2018 3:00 AM CONSTRUCTION AREA MANAGER Plan of Treatment Health Maintenance Due Date [...] 2003 ZOSTER VACCINE (1 of 2) 2003 DEPRESSION SCREENING 09/09/2024 COVID-19 VACCINE (1 - 2023-2 5 season) 2025 INFLUENZA VACCINE (#1) 2025 Respiratory Syncytial Virus [...] this topic Medical Devices Implanted Type Area Timber Faller Device Identifier Shelf Expiration Date Model / Serial / Lot Kit Tissue Clsr Duo Tssl 1 Prefl [facility] - [id number] Implanted:Qty: 1 on 10/06/2018 by Sarath Rascon MD at [facility] [employer] 03/08/2020 [id number] / [id number] / [id number] Medium Cage Implanted:Qty: 2 on 10/06/2018 by Sarath Rascon MD at [facility] Spine Cervical Titan Spine [id number] / / Large Cage Implanted:Qty: 1 on 10/06/2018 by Sarath Rascon MD at [facility] Cervical Titan Spine [id number] / / Large Cage Implanted:Qty: 1 on 10/06/2018 by Sarath Rascon MD at [facility] Spine Cervical Titan Spine [id number] / / 85mm Patrick Trans Plate Implanted:Qty: 1 on 10/06/2018 by Sarath Rascon MD at [facility] [id number] / / 4.0x16 S.T.Variable Screw Implanted:Qty: 8 on 10/06/2018 by Sarath Rascon MD at [facility] [id number] / / 4.0 X16 S.D.Variable Screw Implanted:Qty: 1 on 10/06/2018 by Sarath Rascon MD at [facility] [id number] / / 4.0x17 S.D. Variable Screw Implanted:Qty: 1 on 10/06/2018 by Sarath Rascon MD at [facility] [id number] / / Sub Bngf Progenix Dbm Bvn Clgn Ptty 1ml Implanted:Qty: 1 on 10/06/2018 by Sarath Rascon MD at [facility] Spinal [employer] 02/22/2020 [id number] / / [id number] Sub Bngf Progenix Dbm Bvn Clgn Ptty 1ml Implanted:Qty: 1 on 10/06/2018 by Sarath Rascon MD at [facility] Spinal [employer] 02/22/2020 [id number] / / [id number] Graft Bone Infs Rhbmp-2 Bvn Clgn 2xs Implanted:Qty: 1 on 10/06/2018 by Sarath Rascon MD at [facility] [employer] 07/09/2019 [id number] / / [id number] Graft Bone Infs Rhbmp-2 Bvn Clgn 2xs Implanted:Qty: 1 on 10/06/2018 by Sarath Rascon MD at [facility] Med[employer] 07/09/2019 [id number] / / [id number] Bone Canc Crush 5.0cc - [id number] Implanted:Qty: 1 on 10/06/2018 by Sarath Rascon MD at [facility] [employer] 01/05/2021 [id number] / [id number] / [id number] Graft Bone Canc 30ml Crsh Chp Frzn Implanted:Qty: 1 on 10/06/2018 by Sarath Rascon MD at [facility] [employer] 08/03/2022 [id number] / / [id number] Graft Bone Infs Rhbmp-2 Bvn Clgn 2xs Implanted:Qty: 1 on 10/06/2018 by Sarath Rascon MD at [facility] [employer] 07/09/2019 [id number] / / [id number] Floseal Hemostatic Matrix Implanted:Qty: 2 on 10/06/2018 by Sarath Rascon MD at [facility] [employer] 02/10/2020 [id number] / / [id number] Insurance MEDICARE MEDICARE [facility] MEDICARE ANTHEM MEDICARE [facility] PAYOR [facility] PAYOR GENERIC Advance Directives * Full Code (Latest Code Status on File) Date Activated Date Inactivated Comments 10/06/2018 2:44 PM 10/11/2018 12:35 PM Care Teams Keno Dealer Relationship Specialty Start Date End Date Jacky Jenkins MD [address] [address] PCP - General Family Medicine 09/26/18
--- OUTSIDE RECORDS SUMMARY | 2025-07-19 10:23 | XMS_ITS | Encounter Summary ---
Author Organization [facility] Address [address] [facility] [place] [address] Care Team Providers Care Government Affairs Manager Name Role Phone Jacky Jenkins MD Primary Care Prov ider Julia Orellana PT Unavailable Garth Fraga MD Unavailable [phone] Maryann Herndon MD Unavailable Brien Fine MD Unavailable Vilma Yang RN Unavailable [phone] Rina Swenson OD Unavailable [phone] José Antonio Skinner MD Unavailable [phone] Shereen Najera MD Unavailable [phone] Alanis Ospina OD Unavailable Reason for Visit * Reason Onset Date Comments PMC Preprocedure 03/01/2025 Encounter Details Date Type Department Care Team (Late st Contact Info) Description 03/01/2025 Telephone [facility] [address] [facility] [address] [place] [address] Jules Sheffield MD [address] [place] [address] PMC Preprocedure Social History Tobacco [...] on file Legal 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 [employer] Gender Identity Male 03/14/2021 11:16 AM CDT [...] on filedocumented in this encounter Care Teams Government Affairs Manager Relationship Specialty Start Date End Date Jacky Jenkins MD PCP - General 01/01/13 Julia Orellana, PT [address] [facility] [address] [place] [address] Physical Therapist Physical Therapy 10/16/20 Garth Fraga MD [address] [facility] [place] [address] Retail Merchandising Specialist Dermatology 09/15/21 Maryann Herndon MD [address] [place] [address] Consulting Physician Neurology 04/04/22 Brien Fine MD [address] [place] [address] Brand Recorder Transplant 04/23/23 Vilma Yang, BOB [address] [facility] [address] [place] [address] Heart Failure Coordinator Upholstery Restorer 04/23/23 Rina Swenson OD [address] [place] [address] Optometry 04/29/23 José Antonio Skinner MD [address] [facility] [address] [place] [address] Consulting Physician Urology 12/11/23 Shereen Najera MD [address] [facility] [address] [place] [address] Ophthalmology 03/03/25 Alanis Ospina OD [address] [facility]PT OPHTHALMOLOGY, [address] [place] [address] Optometry 03/03/25 documented as of this encounter
--- OUTSIDE RECORDS SUMMARY | 2025-07-19 10:23 | XMS_ITS | Encounter Summary ---
Author Organization [facility] Address [address] [facility] [place] [address] Care Team Providers Care Vice President Quality Name Role Phone Jacky Jenkins MD Primary Care Provider + Encounter Details Date Type Department Care Team (Late st Contact Info) Description 09/18/2021 Lab Requisition [facility] Care DermPath Lab [address] [facility], [facility] [place] [address] Cesario Fraga MD [address] [place] [address] Social History Tobacco Use Types Packs/Day Years Used Date Smoking Tobacco: Never Smokeless Tobacco: Never Alcohol Use Standard Drinks/Week Comments No 0 (1 standard drink = 0.6 oz pur e alcohol) Sex and Gender Information Value Date Recorded Sex Assigned at Not on file Legal Sex Male 6:15 AM CLIENT EXECUTIVE Gender Identity Not on file Sexual Orientation [...] of Assessment Author No 10/06/2018 3:[address] RN documented as of this encounter Mental Status * Does person have difficulty concentrating/remembering/making decisions? Answer Entry Date Author No 10/06/2018 3:47 PM [address] EXECUTIVE E[address] RN documented in this encounter Plan of Treatment Not on file documented as of this encounter Procedures Procedure Name Priority Date/Time Associated Diagnosis Comments DERMATOPATHOLOGY Routine 09/18/2021 12:0 0 AM CLIENT EXECUTIVE documented in this encounter Results * DERMATOPATHOLOGY (09/18/2021 12:00 AM CLIENT EXECUTIVE) Case Report Dermatopathology Report Case: [id number] Authorizing Provider: Cesario Fraga MD Collected: 09/18/2021 12:00 AM Ordering Location: [facility] DermPath Lab Received: 09/18/2021 02:55 PM Pathologist: Tabatha Mulligan MD Specimen: Skin, left post shoulder 2 4:03 PM [facility] Final Diagnosis Specimen A. SKIN, left post shoulder: PSORIASIFORM DERMATITIS (L44.8) (see microscopic description and comment) 2 4:03 PM [facility] DERMAT[facility] LABORATORY at [address]3 CLIENT EXECUTIVE Clinical History Psoriasis vs eczema vs drug eruption. [id number] 2 4:03 PM [facility]ORY Gross Description Specimen A: Received is one formalin filled container labeled with the patient's name and designated left post shoulder. The specimen consists of a shave biopsy measuring 9x7x1 mm. Jar 0. 2 4:03 PM [facility] DER[facility]ORATORY Microscopic Description Specimen A. SKIN, [...] / partially treated psoriasis. 2 4:03 PM CLIENT EXECUTIVE DERMATOPATHOLOGY LABORATORY Disclaimer An external and internal positive and negative controls are appropriate for the histochemical, immunohistochemical and immunofluorescence stain(s) in this case (if any), except where stated explicitly. The performance characteristics of the stain(s) cited in this report were developed and its performance characteristic determined by the Dermatopathology Laboratory at [facility], directed by Dr. Kat Dey. These tests need not be, and therefore are not, approved by the [place] Food and Drug Administration. The tests are used for clinical purposes. Billing Codes Specimen Charges Stain Charges 84838 1 95150 1 2 4:03 PM CLIENT EXECUTIVE DERMATOPATHOLOGY LABORATORY Embedded Images 2 4:03 PM CLIENT EXECUTIVE DERMATOPATHOLOGY LABORATORY Pathology/Cytolog y TISSUE SPECIMEN FROM SKIN / Unknown 09/18/2021 09/18/2021 2:55 PM CLIENT EXECUTIVE Cesario Fraga MD LAB - PATHOLOGY/CYTOLOGY ORDER RYANNE Final Result DERMATOPATHOLOGY LABORATORY [facility] - Department of Dermatology [facility] Medicine [address] [place] [address], [address] [phone] documented in this encounter Visit Diagnoses Not on filedocumented in this encounter Care Teams Vice President Quality Relationship Specialty Start Date End Date Jacky Jenkins MD [address] [address] PCP - General Family Medicine 09/26/18 documented as of this encounter
== END 2025-07-19 09:43 | disposition home or self-care (01) ==
PROVIDERS: PCP Family Medicine Adolescent Medicine; Visit Provider Family Medicine
DX: K40.20 Bilateral inguinal hernia, without obstruction or gangrene, not specified as recurrent (principal); Z85.51 Personal history of malignant neoplasm of bladder
CPT/HCPCS: 74177; Q9967